=== PATIENT | female | born 1940 | race Caucasian/White ===

== ENCOUNTER → 2016-08-05 | Outpatient (CLI) | payer OTHER ==
[~2016-08-05] MED LIST: CALC1TAB9 PO; MISCCAP80 PO
== END | disposition home or self-care (01) ==
LOC: C.PAPS 11:50
PROVIDERS: ATTEND Obstetrics & Gynecology
DX: Z12.4 Encounter for screening for malignant neoplasm of cervix (principal)

== ENCOUNTER → 2016-08-27 | Outpatient (CLI) | payer OTHER ==
--- NOTE | 2016-08-27 16:04 | MAMMOGRAPHY REPORT ---
BILATERAL DIGITAL SCREENING MAMMOGRAM WITH CAD: 08/27/2016 CLINICAL HISTORY: Routine screening. Patient has no complaints. TECHNIQUE: Bilateral CC and MLO views were obtained. Current study was also evaluated with a Comput er Aided Detection (CAD) system. COMPARISON: Comparison is made to exams dated: 08/24/2015 mammogram, 08/23/2014 mammogram, 08/19/2013 ma mmogram, 08/18/2012 mammogram, 08/16/2011 mammogram, and 08/15/2010 mammogram - [facility] enter. BREAST COMPOSITION: There are scattered areas of fibroglandular density in both breasts. FINDINGS: There is a circumscribed 12 mm mass in the upper outer middle one third of the left breas t, that is stable in size dating back to at least 08/10/2007, therefore likely benign. There are be nign calcifications scattered bilaterally. A stable focal asymmetry in the lower inner quadrant of the left breast is also unchanged dating back to 2007. No new suspicious mass, architectural distor tion or cluster of microcalcifications is seen. IMPRESSION: ACR BI-RADS CATEGORY 1: NEGATIVE There is no mammographic evidence of malignancy. A 1 year screening mammogram is recommended. The p atient will receive written notification of the results. Approximately 10% of breast cancers are not detected with mammography. A negative mammographic repor t should not delay biopsy if a clinically suggestive mass is present. Lurdes Mitchell M.D. ay/:08/27/2016 15:22:52 Cable Repairer: Marylu GUZMAN)(Do), [facility] letter sent: Normal 1/2 BI-RADS Code: ACR BI-RADS Category 1: Negative
== END | disposition home or self-care (01) ==
LOC: C.MAMM 08:51
PROVIDERS: ATTEND Family Medicine
DX: Z12.31 Encounter for screening mammogram for malignant neoplasm of breast (principal)

== ENCOUNTER → 2017-09-24 | Outpatient (CLI) | payer OTHER ==
--- NOTE | 2017-09-25 08:03 | MAMMOGRAPHY REPORT ---
BILATERAL DIGITAL SCREENING MAMMOGRAM TOMOSYNTHESIS WITH CAD: 09/24/2017 CLINICAL HISTORY: Routine screening. Patient has no complaints. TECHNIQUE: Breast tomosynthesis in addition to standard 2D mammography was performed. Current study was also evaluated with a Computer Aided Detection (CAD) system. COMPARISON: Comparison is made to exams dated: 08/27/2016 mammogram, 08/24/2015 mammogram, 08/23/2014 mamm ogram, 08/18/2012 mammogram, 08/19/2013 mammogram, and 08/16/2011 mammogram - [facility] er. BREAST COMPOSITION: There are scattered areas of fibroglandular density in both breasts. FINDINGS: No suspicious masses, calcifications, or areas of architectural distortion are noted in ei ther breast. There has been no significant interval change compared to prior exams. Scattered bilater al benign-appearing calcifications are not significantly changed. Left breast asymmetries are stable . Circumscribed benign-appearing 8 mm mass within the left upper outer quadrant is stable compared t o multiple prior exams. IMPRESSION: ACR BI-RADS CATEGORY 2: BENIGN There is no mammographic evidence of malignancy. A 1 year screening mammogram is recommended. The pa tient will receive written notification of the results. Approximately 10% of breast cancers are not detected with mammography. A negative mammographic report should not delay biopsy if a clinically suggestive mass is present. Magi Orlando M.D. /:09/24/2017 15:48:58 Architecture Manager: Ronit Araya [facility] letter sent: Normal 1/2 BI-RADS Code: ACR BI-RADS Category 2: Benign
== END | disposition home or self-care (01) ==
LOC: C.MAMM 13:14
PROVIDERS: ATTEND Family Medicine
DX: Z12.31 Encounter for screening mammogram for malignant neoplasm of breast (principal)

== ENCOUNTER 2022-06-02 09:50 | Inpatient (IN) ==
[2022-06-02] MEDS ORDERED: ONDANSETRON INJ 2 MG/ML 2 ML VIAL IV STA (10:34)
[2022-06-02] MEDS ORDERED: FAMOTIDINE 20MG IV PUSH 20 MG/5 ML SYR IV STA (10:34)
[2022-06-02] MEDS ORDERED: SODIUM CHLORIDE 0.9% 1000ML 1,000 ML IV ONE (10:35)
[2022-06-02 10:59] LABS: Basophils # (auto) 0.02 K/uL (0-0.2); Basophils % (auto) 0.4 %; Eosinophils # (auto) 0.04 K/uL (0-0.50); Eosinophils % (auto) 0.8 %; Hematocrit (blood only) 41.6 % (34.1-44.9); Hemoglobin 13.9 g/dl (12.0-16.0); Immature Granulocytes # (auto) 0.02 K/uL (0.00-0.02); Immature Granulocytes % (auto) 0.4 %; Lymphocytes # (auto) 1.59 K/uL (1.2-3.4); Lymphocytes % (auto) 33.8 %; Mean Corpuscular Hemoglobin 30.2 pg (25.0-34.0); Mean Corpuscular Hgb Conc 33.4 g/dL (32.0-36.0); Mean Corpuscular Volume 90.4 fL (80.0-100.0); Mean Platelet Volume 10.2 fL (9.4-12.3); Monocytes % (auto) 8.5 %; Neutrophils # (auto) 2.64 K/uL (1.4-6.5); Neutrophils % (auto) 56.1 %; Platelet Count 208 K/uL (130-400); RDW Coefficient of Variation 13.2 % (11.5-14.5); RDW Standard Deviation 43.8 fL (36.4-46.3); White Blood Count 4.71 K/ul (4.8-10.8)
--- NOTE | 2022-06-02 11:07 | XRay Report ---
XR chest 1V portable CLINICAL HISTORY: weakness TECHNIQUE: Single frontal radiograph of the chest was obtained. Comparison: Comparison is made to chest radiograph 05/17/2015 FINDINGS: No lines and tubes are seen. The cardiomediastinal silhouette is normal. The lungs are clear. No evid ence of pleural effusion or pneumothorax. IMPRESSION: No acute chest disease. ACT 112: Negative or not required by law. Electronically signed by: David Hassan M.D. 06/02/2022 11:06 AM
[2022-06-02 11:08] LABS: Albumin Globulin Ratio 1.5 (0.9-2); Albumin Level 4.1 gm/dl (3.4-5.0); BUN Creatinine Ratio 14.3 (10-20); Bilirubin,Total 0.7 mg/dl (0.2-1.0); Calcium 8.4 mg/dl (8.5-10.1); Creatinine Clr Calc Pharmacy 42.6 ml/min; Est GFR (African American) 69.1 ml/min; Est GFR (Non-African American) 59.6 ml/min; Globulin 2.7 gm/dl (2.5-4.0); Magnesium 1.4 mg/dl (1.7-2.4); Phosphorus 2.6 mg/dl (2.5-4.9); Total Protein 6.8 gm/dl (6.0-8.3)
[2022-06-02 11:27] LABS: Troponin I High Sensitivity 12.6 pg/ml (0-14)
--- NOTE | 2022-06-02 12:10 | Electrocardiogram Report ---
Test Reason : Blood Pressure : / mmHG Vent. Rate : 049 BPM Atrial Rate : 049 BPM P-R Int : 154 ms QRS Dur : 078 ms QT Int : 504 ms P-R-T Axes : 012 -09 004 degrees QTc Int : 455 ms Sinus bradycardia Minimal voltage criteria for LVH, may be normal variant Borderline ECG When compared with ECG of 17-MAY-2015 10:35, No significant change Confirmed by Kris Hill ([id number]) on 06/02/2022 12:10:23 PM Referred By: REFERRED SELF Confirmed By:Kris Hill
--- NOTE | 2022-06-02 13:14 | History & Physical Report ---
Date of Service June 02, 2022 Assessment & Plan (1) COVID-19: (2) HTN (hypertension): (3) Depression: (4) Weakness: Plan 82-year-old COVID-positive presented with weakness and hypokalemia/hypomagnesemia. Replace electrolytes and likely discharge home as fatigue likely related to COVID-19. IV replacement of electrolytes. COVID-19: Weakness: Home test positive for COVID; PCR + in ED Paxil bid started as outpatient per PCP; currently on day 4 of treatment Patient reluctant to continue course of treatment at this time No hypoxia, fevers, or cough CXR negative; no expectorant to check sputum culture Electrolyte disturbances: K+ 3.0; likely related to vomiting,COVID, dehydration Received K riders x2; will order 1 more K rider for a total of 3 IVF 0.9% NS with 20 KCl at 100 mL/h x 2 bags; reevaluate in a.m. 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 Collins in [place] neurology No weakness or numbness/tingling noted Depression: Takes sertraline; continue Alzheimer's disease: Takes Aricept; continue Contribute aphasia to memory changes; see speech therapy weekly since September; no dysphagia will order speech therapy while here Disposition: PCP: Dr. Gutierrez VTE prophylaxis: Teds and SCDs patient denies wanting Lovenox at this time CODE STATUS: Full code length of stay: Anticipate admission 1 to 2 days I personally was able to review all current laboratory work and diagnostic images obtained in the ED. Additionally, I was able to review the patients past medication reconciliation and history with direct visualization in the patients chart. This patient was discussed with Dr. Lyle. History of Present Illness Chief Complaint: Weakness Primary Care Provider: Kris Gutierrez MD Ms. Bhatia is an 82-year-old female that presented to the [facility] with increased weakness and possible confusion. The patient tested positive for COVID with a home test kit and per PCP rec ommendations and prescription is on Paxlovid day #4 of treatment; last dose this AM. Patient is unvaccinated for flu and COVID due to history of Guillain-Ricks in 2010 which resulted in her being intubated at that time for 10 days. Patient reports having nausea and fatigue over the past few days. She reports having 1 episode of emesis this morning with mucus; no blood. No leukocytosis on labs however hypokalemic and hypomagnesemia was noted. Patient denies headache, dizziness, vomiting vision changes, urinary changes, recent trauma or falls. Since September 2021 the patient has had difficulty with retrieving memory and aphasia and has been seeing speech therapy weekly on . She denies any dysphagia. Patient is sitting upright in her hospital bed in no apparent distress she is able to answer all questions appropriately and no overt difficulty with word finding during our conversation. Her Santos is at the bedside and assisted with the conversation and review of history. 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 Patient will be admitted under the hospitalist service for further evaluation and management along with some physical therapy and Occupational Therapy. Please see A/P for further details. Allergies Allergy/AdvReac Type Severity Reaction Status Date / Time amoxicillin Allergy Unknown HIVES, RASH Unverified 06/02/22 13:35 Influenza Virus Vaccines Allergy Unknown cannot Verified 06/02/22 13:35 have d/t hx of guillian barre Home Medications Medication Instructions Recorded Confirmed Type loratadine 10 mg tablet 10 mg PO HS 10/13/19 06/02/22 History ascorbic acid (vitamin C) 500 mg 500 mg PO QAM 02/22/22 06/02/22 History capsule cholecalciferol (vitamin D3) 25 25 mcg PO DAILY 02/22/22 06/02/22 History mcg (1,000 unit) capsule donepezil 5 mg tablet 5 mg PO QAM 02/22/22 06/02/22 History melatonin 5 mg capsule 5 mg PO HS PRN Sleep 02/22/22 06/02/22 History omeprazole 20 mg capsule,delayed 20 mg PO QAM 02/22/22 06/02/22 History release gabapentin 100 mg capsule 100 mg PO TID 06/02/22 06/02/22 History losartan 25 mg tablet 12.5 mg PO DAILY 06/02/22 06/02/22 History metoprolol succinate 25 mg PO BID 06/02/22 06/02/22 History sertraline 25 mg tablet 25 mg PO QAM 06/02/22 06/02/22 History Past Med/Surg History Medical History COVID-19 Depression Guillain-[place] syndrome following vaccination HTN (hypertension) Incisional hernia Weakness Surgical History H/O hernia repair laparoscopic, 10cm surgimesh, 05/2015, Ramondioana H/O tubal ligation S/P cholecystectomy laparoscopic with cholangiogram, 2014, Ramondelli S/P hemorrhoidectomy Family History Mother Colorectal cancer Grandmother Diabetes Denies family history of Ovarian cancer Breast cancer Social History Smoking Status: Former smoker Hx Alcohol Use: No Hx Substance Use: No Preferred Language: Senegalese marital status: Feels Safe at Home: Yes Dental Care, Regularly: Yes Seatbelt Use: always Sunscreen Use: Yes Review of Systems Review of Systems: Neuro: (-) Falls, trauma, slurred speech (+) expressive aphagia HEENT: (-) VERGARA, dizziness, dysphagia, visual or auditory changes CV: (-) CP, palpitations, swelling Resp: (-) SOB GI: (-) appetite changes, N/V/D, bowel changes : (-) urinary changes Skin: (-) rashes Psych: (-) anxiety, depression Physical Exam Physical Exam: Neuro: AAOx4, PERRLA, + expressive aphagia, + memory changes, CNII-XII grossly intact HEENT: head normocephalic, moist mucus membranes CV: S1/S2, (-) M/G/R, (-) edema, cap refill < 3 seconds Resp: Lungs CTA in all cruz. On RA GI: Abdomen S/NT/ND, Ax4 bowel sounds, (-) CVA tenderness Musculoskeletal: 5/5 B/L UE strength, 5/5 B/L LE strength. No gait disturbance noted Skin: (-) rashes , (-) erythema. Psych: euthymic mood Results & Data Results & Data ([facility]) Vital Signs (Past 12 Hours) Vital Signs Temp Pulse Pulse Resp BP BP Pulse Ox 06/02/22 11:58 50 L 20 128/60 99 06/02/22 11:08 100 06/02/22 09:58 36.7 C 60 18 129/91 95 O2 Del Method O2 Flow Rate 06/02/22 11:58 Nasal Cannula 1 06/02/22 11:08 Nasal Cannula 1 06/02/22 09:58 Room Air Laboratory Results Short CBC 06/02/22 Range/Units 10:40 WBC 4.71 L (4.8-10.8) K/ul Hgb 13.9 (12.0-16.0) g/dl Hct 41.6 (34.1-44.9) % Plt Count 208 (130-400) K/uL BMP 06/02/22 10:40 Sodium 141 Potassium 3.0 L Chloride 104 Carbon Dioxide 24 BUN 13 Creatinine 0.91 Glucose 110 H Calcium 8.4 L Liver Function 06/02/22 Range/Units 10:40 Total Bilirubin 0.7 (0.2-1.0) mg/dl AST 26 (13-39) U/L ALT 22 (7-52) U/L Alkaline Phosphatase 69 (34-104) U/L Albumin 4.1 (3.4-5.0) gm/dl Diagnostic Findings Chest X-Ray 06/02/22 10:33 XR chest 1V portable CLINICAL HISTORY: weakness TECHNIQUE: Single frontal radiograph of the chest was obtained. Comparison: Comparison is made to chest radiograph 05/17/2015 FINDINGS: No lines and tubes are seen. The cardiomediastinal silhouette is normal. The lungs are clear. No evidence of pleural effusion or pneumothorax. IMPRESSION: No acute chest disease. ACT 112: Negative or not required by law. Electronically signed by: David Hassan M.D. 06/02/2022 11:06 AM ECG Additional Comments: Vent. Rate : 049 BPM Atrial Rate : 049 BPM P-R Int : 154 ms QRS Dur : 078 ms QT Int : 504 ms P-R-T Axes : 012 -09 004 degrees QTc Int : 455 ms Code Status & VTE Plan Code Status Full code in the event of cardiac or respiratory arrest VTE Prophylaxis Plan VTE Prophylaxis will be ordered: Yes Supervising Physician Co-Signing Physician Notes Patient seen and examined at bedside. Patient with pmh HTN who presented with 4 days of nausea and vomiting, likely secondary to Paxlovid. Patient positive COVID19 with at home test about 5 days prior to admission. Decided to get prescription for Paxlovid. Had diarrhea and fatigue related to COVID19, which mostly resolved, but had n/v, PO intolerance with Paxlovid, prompting her to present to ED. Patient was not hypoxic in ED, found to have hypokalemia and hypomagnesemia on labs. IVF and repletion started in ED. Physical exam unremarkable, in NAD, HR RRR, lungs CTAB and no wheezing or rhonchi, abdomen soft and nontender, no LE edema. Vital stable. Continue IVF and electrolyte repletion. Follow up on morning labs. Discussed with YONIS Rosales and agree with rest of assessment and plan as outlined above.
[2022-06-02] MEDS: POTASSIUM CHLORIDE / WTR 10 MEQ/100 ML PLCT IV SCH ×2 (13:48→14:58)
[2022-06-02] MEDS: MAGNESIUM SULFATE / D5W 1 GM/100 ML BAG IV SCH ×4 (13:50→22:27)
--- NOTE | 2022-06-02 15:31 | Emergency Department Note ---
Impression & Plan COVID-19, Gastroenteritis due to COVID-19 virus, Hypomagnesemia, Hypokalemia ED Provider Note NAME: LANDON FUCHS AGE: 82 SEX: F ARRIVES VIA: Ambulance INFORMANT: Patient, ED PROVIDER(S): Hernandez Hallman MD CHIEF COMPLAINT: PLAN: Disposition: Admit MEDICAL DECISION MAKING: The patient is a pleasant 82-year-old woman with a past medical history of hypertension, GERD, memory loss who presents to the emergency department via EMS accompanied by her for evaluation of increasing generalized weakness in the setting of being diagnosed with COVID-19 approximately a week ago where she tested positive on a home test and subsequently was started on Paxlovid. However she is on day 4 of her course and reports that her nausea and diarrhea that has been present from her illness has continued to worsen and she has not been able to tolerate much oral intake over the past 24 hours. Her grew concerned that she was getting weaker to the point where she could not walk independently today and even had a period of mild confusion. He reports feeling short of breath but denies any chest pain. 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 On arrival the patient is fatigued appearing but no acute distress, afebrile with stable vital signs. O2 saturation was in the mid 90s on room air and so nasal cannula was discontinued. She appears clinically dry. Her abdomen is benign. EKG without overt acute ischemia. Chest x-ray negative for acute cardiopulmonary process. WBC 4.7K consistent with patient's COVID-19 infection. H/H and platelets within normal limits. Chemistry without metabolic acidosis. Potassium 3.0 magnesium 1.4 with repletion initiated. LFTs unremarkable. High-sensitivity troponin 12.6, within normal limits. TSH was normal limits. COVID-19 PCR did confirm patient's infection. Given the patient's generalized weakness which has become significant today the patient and her agree with plan for admission. Case was discussed with Maricruz Rosales with [facility] hospitalist who will evaluate the patient for admission. Triage Nursing notes reviewed and agree them. Prior medical records reviewed Vital Signs: reviewed and remarkable for no significant abnormalities Differential diagnosis: Infection, dehydration, metabolic abnormality, hypo/hyperglycemia, electrolyte disturbance, anemia, hypoxia, cardiac sources, intracerebral event, toxicologic, neurologic, as well as other pathologies. ER treatment provided: See below. Diagnostics interpreted by me: ECG: Sinus bradycardia, 49 bpm, no ectopy, LVH, no overt ST elevation or depression, QTC 455, QRS 78. Cardiac Monitoring: An order for continuous cardiac monitoring was placed and demonstrated Sinus bradycardia, 49 bpm, no ectopy. Laboratory studies: See below Imaging studies: See below Consultation(s): Maricruz Rosales with Dr. Lyle, [facility] hospitalist HPI: The patient is a pleasant 82-year-old woman with a past medical history of hypertension, GERD, memory loss who presents to the emergency department via EMS accompanied by her for evaluation of increasing generalized weakness in the setting of being diagnosed with COVID-19 approximately a week ago where she tested positive on a home test and subsequently was started on Paxlovid. However she is on day 4 of her course and reports that her nausea and diarrhea that has been present from her illness has continued to worsen and she has not been able to tolerate much oral intake over the past 24 hours. Her grew concerned that she was getting weaker to the point where she could not walk independently today and even had a period of mild confusion. He reports feeling short of breath but denies any chest pain. 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 ROS: See above HPI for pertinent positives & negatives. A total of 10 systems reviewed and were otherwise negative. VITALS:See Below PHYSICAL EXAMINATION: GENERAL: Awake, alert, fatiguedl-appearing, in no distress HENT: Normocephalic, atraumatic. Oropharynx with dry mucous membranes and otherwise unremarkable. EYES: Normal conjunctiva. Sclera non-icteric. NECK: Supple. No nuchal rigidity. FROM. No JVD. RESPIRATORY: Clear to auscultation. CARDIAC: Regular rate, normal rhythm. Extremities warm and well perfused. Pulses equal. ABDOMEN: Soft, non-distended. No tenderness to palpation. No rebound or guarding. No masses. RECTAL: Deferred. MUSCULOSKELETAL: Chest examination reveals no tenderness. The back is symmetrical on inspection without obvious abnormality. There is no CVA tenderness to palpation. No joint edema. LOWER EXTREMITIES: Calves are equal size bilaterally and non-tender. No edema. No discoloration. NEURO: Normal sensorium. No sensory or motor deficits noted. SKIN: No rash or jaundice noted. 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 HTN (hypertension) Incisional hernia Weakness Surgical History H/O hernia repair laparoscopic, 10cm surgimesh, 05/2015, Jenny H/O tubal ligation S/P cholecystectomy laparoscopic with cholangiogram, 2014, Jenny S/P hemorrhoidectomy Family History Mother Colorectal cancer Grandmother Diabetes Denies family history of Ovarian cancer Breast cancer Social History Smoking Status: Former smoker Hx Alcohol Use: No Hx Substance Use: No Preferred Language: Yi marital status: Feels Safe at Home: Yes Dental Care, Regularly: Yes Seatbelt Use: always Sunscreen Use: Yes Allergies Allergies Allergy/AdvReac Type Severity Reaction Status Date / Time amoxicillin Allergy Unknown HIVES, RASH Unverified 06/02/22 13:35 Influenza Virus Vaccines Allergy Unknown cannot Verified 06/02/22 13:35 have d/t hx of guillian barre Home Meds Home Medications Medication Instructions Recorded Confirmed loratadine 10 mg tablet 10 mg PO HS 10/13/19 06/02/22 ascorbic acid (vitamin C) 500 mg 500 mg PO QAM 02/22/22 06/02/22 capsule cholecalciferol (vitamin D3) 25 25 mcg PO DAILY 02/22/22 06/02/22 mcg (1,000 unit) capsule donepezil 5 mg tablet 5 mg PO QAM 02/22/22 06/02/22 melatonin 5 mg capsule 5 mg PO HS PRN Sleep 02/22/22 06/02/22 omeprazole 20 mg capsule,delayed 20 mg PO QAM 02/22/22 06/02/22 release gabapentin 100 mg capsule 100 mg PO TID 06/02/22 06/02/22 losartan 25 mg tablet 12.5 mg PO DAILY 06/02/22 06/02/22 metoprolol succinate 25 mg PO BID 06/02/22 06/02/22 sertraline 25 mg tablet 25 mg PO QAM 06/02/22 06/02/22 Results & Data (ED) Vital Signs Vital Signs - 24 hr 06/02/22 09:58 06/02/22 11:08 06/02/22 11:58 Temperature 36.7 C Temperature Source Oral Pulse Rate 60 Pulse Rate [Apical] 50 L Respiratory Rate 18 20 Respiratory Depth Normal Blood Pressure 129/91 Blood Pressure [Left Arm] 128/60 Blood Pressure Mean 103 Blood Pressure Mean [Left Arm] 82 Blood Pressure Position Sitting Pulse Oximetry 95 100 99 Oxygen Delivery Method Room Air Nasal Cannula Nasal Cannula Oxygen Flow Rate 1 1 Sepsis Recent Fever Within 48 Hours No Sepsis New/Unexplained Change in Mental Status No Sepsis Action Taken by Nursing No Action Required 06/02/22 13:00 Temperature Temperature Source Pulse Rate Pulse Rate [Apical] 65 Respiratory Rate 18 Respiratory Depth Blood Pressure Blood Pressure [Left Arm] 143/90 H Blood Pressure Mean Blood Pressure Mean [Left Arm] 107 Blood Pressure Position Pulse Oximetry 97 Oxygen Delivery Method Nasal Cannula Oxygen Flow Rate 1 Sepsis Recent Fever Within 48 Hours Sepsis New/Unexplained Change in Mental Status Sepsis Action Taken by Nursing Laboratory Data Attestation: I reviewed the patient's lab results. Result diagrams: 06/02/22 10:40 06/02/22 10:40 Lab Results 06/02/22 06/02/22 06/02/22 Range/Units 10:40 10:40 10:40 WBC 4.71 L (4.8-10.8) K/ul RBC 4.60 (3.93-5.22) M/uL Hgb 13.9 (12.0-16.0) g/dl Hct 41.6 (34.1-44.9) % MCV 90.4 (80.0-100.0) fL MCH 30.2 (25.0-34.0) pg MCHC 33.4 (32.0-36.0) g/dL RDW Std Deviation 43.8 (36.4-46.3) fL RDW Coeff of Martin 13.2 (11.5-14.5) % Plt Count 208 (130-400) K/uL MPV 10.2 (9.4-12.3) fL Immature Gran % (Auto) 0.4 % Neut % (Auto) 56.1 % Lymph % (Auto) 33.8 % [place] % (Auto) 8.5 % Eos % (Auto) 0.8 % Baso % (Auto) 0.4 % Neut # (Auto) 2.64 (1.4-6.5) K/uL Lymph # (Auto) 1.59 (1.2-3.4) K/uL [place] # (Auto) 0.40 (0.24-0.82) K/uL Eos # (Auto) 0.04 (0-0.50) K/uL Baso # (Auto) 0.02 (0-0.2) K/uL Immature Gran # (Auto) 0.02 (0.00-0.02) K/uL Sodium 141 (136-145) mmol/L Potassium 3.0 L (3.5-5.1) mmol/L Chloride 104 (98-107) mmol/L Carbon Dioxide 24 (21-32) mmol/L Anion Gap 13 H (3-11) BUN 13 (6-23) mg/dl Creatinine 0.91 (0.6-1.2) mg/dl Est Cr Clr Drug Dosing 42.6 ml/min Est GFR ( Amer) 69.1 ml/min Est GFR (Non-Af Amer) 59.6 ml/min BUN/Creatinine Ratio 14.3 (10-20) Glucose 110 H (70-99(Fasting)) mg/dl Calcium 8.4 L (8.5-10.1) mg/dl Phosphorus 2.6 (2.5-4.9) mg/dl Magnesium 1.4 L (1.7-2.4) mg/dl Total Bilirubin 0.7 (0.2-1.0) mg/dl AST 26 (13-39) U/L ALT 22 (7-52) U/L Alkaline Phosphatase 69 (34-104) U/L Troponin I High Sens 12.6 (0-14) pg/ml Total Protein 6.8 (6.0-8.3) gm/dl Albumin 4.1 (3.4-5.0) gm/dl Globulin 2.7 (2.5-4.0) gm/dl Albumin/Globulin Ratio 1.5 (0.9-2) TSH 0.939 (0.300-4.500) uIu/ml SARS-CoV-2 (PCR) (Negative) 06/02/22 Range/Units 11:00 WBC (4.8-10.8) K/ul RBC (3.93-5.22) M/uL Hgb (12.0-16.0) g/dl Hct (34.1-44.9) % MCV (80.0-100.0) fL MCH (25.0-34.0) pg MCHC (32.0-36.0) g/dL RDW Std Deviation (36.4-46.3) fL RDW Coeff of Martin (11.5-14.5) % Plt Count (130-400) K/uL MPV (9.4-12.3) fL Immature Gran % (Auto) % Neut % (Auto) % Lymph % (Auto) % [place] % (Auto) % Eos % (Auto) % Baso % (Auto) % Neut # (Auto) (1.4-6.5) K/uL Lymph # (Auto) (1.2-3.4) K/uL [place] # (Auto) (0.24-0.82) K/uL Eos # (Auto) (0-0.50) K/uL Baso # (Auto) (0-0.2) K/uL Immature Gran # (Auto) (0.00-0.02) K/uL Sodium (136-145) mmol/L Potassium (3.5-5.1) mmol/L Chloride (98-107) mmol/L Carbon Dioxide (21-32) mmol/L Anion Gap (3-11) BUN (6-23) mg/dl Creatinine (0.6-1.2) mg/dl Est Cr Clr Drug Dosing ml/min Est GFR ( Amer) ml/min Est GFR (Non-Af Amer) ml/min BUN/Creatinine Ratio (10-20) Glucose (70-99(Fasting)) mg/dl Calcium (8.5-10.1) mg/dl Phosphorus (2.5-4.9) mg/dl Magnesium (1.7-2.4) mg/dl Total Bilirubin (0.2-1.0) mg/dl AST (13-39) U/L ALT (7-52) U/L Alkaline Phosphatase (34-104) U/L Troponin I High Sens (0-14) pg/ml Total Protein (6.0-8.3) gm/dl Albumin (3.4-5.0) gm/dl Globulin (2.5-4.0) gm/dl Albumin/Globulin Ratio (0.9-2) TSH (0.300-4.500) uIu/ml SARS-CoV-2 (PCR) POSITIVE A* (Negative) Administered Medications Gabapentin (Gabapentin 100 Mg Cap) 100 mg PO TID DOUGLAS Stop: 07/02/22 20:59 Last Admin: 06/02/22 20:49 Dose: 100 mg Documented By: TNK Potassium Chloride/Sodium Chloride (Normal Saline W/20 Meq Kcl) 20 meq in 1,000 mls @ 100 mls/hr IV .Q10H DOUGLAS; Protocol Stop: 06/03/22 12:44 Last Admin: 06/02/22 17:10 Dose: 100 mls/hr Documented By: PARISH Loratadine (Loratadine 10 Mg Tab) 10 mg PO HS DOUGLAS Stop: 07/02/22 20:59 Last Admin: 06/02/22 20:49 Dose: 10 mg Documented By: TNK Discontinued Medications Famotidine (Pepcid 20mg Iv Push) 20 mg in 5 mls @ 2.5 mls/min IV NOW STA Stop: 06/02/22 10:35 Last Admin: 06/02/22 10:58 Dose: 2.5 mls/min Documented By: JUAN A Sodium Chloride (Nss 1000ml) 1,000 mls @ 999 mls/hr IV .Q1H1M ONE Stop: 06/02/22 11:35 Last Infusion: 06/02/22 11:59 Dose: 0 mls/hr Documented By: Admin: 06/02/22 10:58 Dose: 999 mls/hr Documented By: OL Magnesium Sulfate/Dextrose (Magnesium Sulfate / D5w) 1 gm in 100 mls @ 100 mls/hr IV Q1H DOUGLAS Stop: 06/02/22 14:57 Last Infusion: 06/02/22 16:05 Dose: 0 mls/hr Documented By: Admin: 06/02/22 14:57 Dose: 100 mls/hr Documented By: Infusion: 06/02/22 14:50 Dose: 0 mls/hr Documented By: Admin: 06/02/22 13:50 Dose: 100 mls/hr Documented By: MARK Potassium Chloride (K Mihir / Wtr) 10 meq in 100 mls @ 100 mls/hr IV Q1H DOUGLAS; Protocol Stop: 06/02/22 14:59 Last Infusion: 06/02/22 16:05 Dose: 0 mls/hr Documented By: Admin: 06/02/22 14:58 Dose: 100 mls/hr Documented By: JUAN A Infusion: 06/02/22 14:48 Dose: 0 mls/hr Documented By: Admin: 06/02/22 13:48 Dose: 100 mls/hr Documented By: MARK Magnesium Sulfate/Dextrose (Magnesium Sulfate / D5w) 1 gm in 100 mls @ 50 mls/hr IV Q2H DOUGLAS Stop: 06/02/22 20:59 Last Infusion: 06/02/22 20:48 Dose: 0 mls/hr Documented By: Admin: 06/02/22 17:09 Dose: 50 mls/hr Documented By: PARISH Ondansetron HCl (Ondansetron Inj 2 Mg/Ml 2 Ml Vial) 4 mg IV NOW STA Stop: 06/02/22 10:35 Last Admin: 06/02/22 10:58 Dose: 4 mg Documented By: JUAN A Potassium Chloride (Potassium Chloride Crtab 20 Meq Tabcr) 40 meq PO NOW STA Stop: 06/02/22 16:47 Last Admin: 06/02/22 17:09 Dose: 40 meq Documented By: PARISH Imaging Data Radiologist's Impression: Chest X-Ray 06/02/22 10:33 XR chest 1V portable CLINICAL HISTORY: weakness TECHNIQUE: Single frontal radiograph of the chest was obtained. Comparison: Comparison is made to chest radiograph 05/17/2015 FINDINGS: No lines and tubes are seen. The cardiomediastinal silhouette is normal. The lungs are clear. No evidence of pleural effusion or pneumothorax. IMPRESSION: No acute chest disease. ACT 112: Negative or not required by law. Electronically signed by: David Hassan M.D. 06/02/2022 11:06 AM Discharge Plan Visit Data Chief Complaint: Dehydration Stated Complaint: DIARRHEA, DEHYDRATION, COVID ED Provider: Hernandez Hallman Discharge Problem: COVID-19, Gastroenteritis due to COVID-19 virus, Hypomagnesemia, Hypokalemia Patient Disposition: Admitted As Inpatient Discharge Instructions Interventions: ED Discharge Assessment Last Done: 06/02/22 20:02
[2022-06-02] MEDS ORDERED: ACETAMINOPHEN 325 MG TAB PO PRN (15:55)
[2022-06-02] MEDS ORDERED: ONDANSETRON INJ 2 MG/ML 2 ML VIAL IV PRN (15:55)
[2022-06-02] MEDS ORDERED: POLYETHYLENE (MIRALAX) 17 GM PACK PO PRN (15:55)
[2022-06-02] MEDS ORDERED: ALUMINUM/MAGNESIUM SUSP 30 ML UDC PO PRN (15:55)
[2022-06-02] MEDS ORDERED: MAGNESIUM HYDROXIDE SUSP 30 ML UDC PO PRN (15:55)
[2022-06-02] MEDS ORDERED: POTASSIUM CHLORIDE CRTAB 20 MEQ TABCR PO STA (16:46)
[2022-06-02] MEDS ORDERED: MELATONIN 3 MG TAB PO PRN (16:47)
[2022-06-02] MEDS: NSS + 20MEQ KCL 20 MEQ/1,000 ML BAG IV SCH (17:10)
[2022-06-02] MEDS ORDERED: LACTATED RINGER'S 1,000 ML IV SCH (17:45)
[2022-06-02] MEDS: GABAPENTIN 100 MG CAP PO SCH (20:49)
[2022-06-02] MEDS ORDERED: LORATADINE 10 MG TAB PO SCH (21:00)
[2022-06-02 23:28] LABS: Appearance Urine Cloudy (Clear); Bacteria Urine Automated 2+ (Negative); Bilirubin Urine Negative (Negative); Blood Urine Negative (Negative); Cast Urine Automated 0 /lpf (0-5); Color Urine Yellow; Glucose Urine UA Negative (Negative); Ketones Urine Negative (Negative); Leukocyte Esterase Urine 1+ (Negative); Nitrite Urine Positive (Negative); Protein Urine Negative (Negative); RBC Urine Automated 0-4 /hpf (0-4); Specific Gravity Urine 1.008 (1.000-1.030); Urobilinogen Urine Negative (Negative); pH Urine 5.5 (4.5-7.5)
[2022-06-03] MEDS: NSS + 20MEQ KCL 20 MEQ/1,000 ML BAG IV SCH (05:51)
[2022-06-03] MEDS: GABAPENTIN 100 MG CAP PO SCH ×2 (08:11→13:10)
[2022-06-03 08:45] LABS: Hematocrit (blood only) 39.4 % (34.1-44.9); Hemoglobin 12.8 g/dl (12.0-16.0); Mean Corpuscular Hgb Conc 32.5 g/dL (32.0-36.0); Mean Corpuscular Volume 92.5 fL (80.0-100.0); Mean Platelet Volume 10.3 fL (9.4-12.3); Platelet Count 224 K/uL (130-400); RDW Coefficient of Variation 13.3 % (11.5-14.5); RDW Standard Deviation 45.6 fL (36.4-46.3); Red Blood Count 4.26 M/uL (3.93-5.22); White Blood Count 4.85 K/ul (4.8-10.8)
[2022-06-03] MEDS ORDERED: DONEPEZIL HCL 5 MG TAB PO SCH (09:00)
[2022-06-03] MEDS ORDERED: SERTRALINE HCL 50 MG TABLET PO SCH (09:00)
[2022-06-03] MEDS ORDERED: LOSARTAN POTASSIUM 25 MG TAB PO SCH (09:00)
[2022-06-03] MEDS ORDERED: CHOLECALCIFEROL 400 UNITS 10 MCG TAB PO SCH (09:00)
[2022-06-03 09:16] LABS: BUN Creatinine Ratio 9.3 (10-20); Calcium 7.8 mg/dl (8.5-10.1); Creatinine Clr Calc Pharmacy 50.7 ml/min; Est GFR (African American) 87.3 ml/min; Est GFR (Non-African American) 75.3 ml/min; Magnesium 2.3 mg/dl (1.7-2.4); Phosphorus 1.4 mg/dl (2.5-4.9); Potassium 3.7 mmol/L (3.5-5.1)
[2022-06-03] MEDS ORDERED: SODIUM PHOSPHATE 3 MMOL/1 ML 5 ML VIAL IV STA (09:42)
[2022-06-03] MEDS ORDERED: SODIUM PHOSPHATE 30 MMOL in SODIUM CHLORIDE 0.9% 500 ML IV ONE (10:00)
[2022-06-03] MEDS ORDERED: LOPERAMIDE HCL 2 MG CAP PO PRN (14:31)
--- NOTE | 2022-06-03 15:39 | Discharge Summary ---
Date of Service June 03, 2022 Admission HPI Per Admitting Provider Ms. Bhatia is an 82-year-old female that presented to the [facility] with increased weakness and possible confusion. The patient tested positive for COVID with a home test kit and per PCP recommendations and prescription is on Paxlovid day #4 of treatment; last dose this AM. Patient is unvaccinated for flu and COVID due to history of Guillain- Ricks in 2010 which resulted in her being intubated at that time for 10 days. Patient reports having nausea and fatigue over the past few days. She reports having 1 episode of emesis this morning with mucus; no blood. No leukocytosis on labs however hypokalemic and hypomagnesemia was noted. Patient denies headache, dizziness, vomiting vision changes, urinary changes, recent trauma or falls. Since September 2021 the patient has had difficulty with retrieving memory and aphasia and has been seeing speech therapy weekly on . She denies any dysphagia. Patient is sitting upright in her hospital bed in no apparent distress she is able to answer all questions appropriately and no overt difficulty with word finding during our conversation. Her Santos is at the bedside and assisted with the conversation and review of history. 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 Patient will be admitted under the hospitalist service for further evaluation and management along with some physical therapy and Occupational Therapy. Please see A/P for further details. Admission Exam Per Admitting Provider Neuro: AAOx4, PERRLA, + expressive aphagia, + memory changes, CNII-XII grossly intact HEENT: head normocephalic, moist mucus membranes CV: S1/S2, (-) M/G/R, (-) edema, cap refill < 3 seconds Resp: Lungs CTA in all cruz. On RA GI: Abdomen S/NT/ND, Ax4 bowel sounds, (-) CVA tenderness Musculoskeletal: 5/5 B/L UE strength, 5/5 B/L LE strength. No gait disturbance noted Skin: (-) rashes , (-) erythema. Psych: euthymic mood Principal Diagnosis electrolyte abnormalities Discharge Exam Neuro: AAOx4, PERRLA, + expressive aphagia, + memory changes, CNII-XII grossly intact HEENT: head normocephalic, moist mucus membranes CV: S1/S2, (-) M/G/R, (-) edema, cap refill < 3 seconds Resp: Lungs CTA in all cruz. On RA GI: Abdomen S/NT/ND, Ax4 bowel sounds, (-) CVA tenderness Musculoskeletal: 5/5 B/L UE strength, 5/5 B/L LE strength. No gait disturbance noted Skin: (-) rashes , (-) erythema. Psych: euthymic mood Discharge Data Allergies Allergy/AdvReac Type Severity Reaction Status Date / Time amoxicillin Allergy Unknown HIVES, RASH Unverified 06/02/22 13:35 Influenza Virus Vaccines Allergy Unknown cannot Verified 06/02/22 13:35 have d/t hx of guillian barre Consultations 06/02/22 13:05 ED Decision to Admit Stat Hospital Course (1) COVID-19: (2) HTN (hypertension): (3) Depression: (4) Weakness: Plan 82-year-old COVID-positive presented with weakness and hypokalemia/hypomagn esemia. Replace electrolytes and likely discharge home as fatigue likely related to COVID-19. IV replacement of electrolytes. 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 Collins in [place] neurology No weakness or numbness/tingling noted Depression: Takes sertraline; continue Alzheimer's disease: Takes Aricept; continue Contribute aphasia to memory changes; see speech therapy weekly since September; no dysphagia will order speech therapy while here Disposition: PCP: Dr. Gutierrez VTE prophylaxis: Teds and SCDs patient denies wanting Lovenox at this time CODE STATUS: Full code discharge home now that tolerating PO and electrolyte abnormalities corrected Total Time Total Time Spent Total Time Spent (In Minutes): 25 Total Time Includes: Examination of the Patient, Discharge Planning and Medication Reconciliation Discharge Plan Discharge Items Patient Disposition: Home - Self-Care Reason For Visit: WEAKNESS Discharge Diagnosis: electrolyte abnormalities Activity: Resume your previous activity Non-emergency contact: Primary Care Provider Call non-emergency contact if: you have any medication questions and your symptoms worsen Follow-up/Referrals: Kris Gutierrez MD [Primary Care Provider] - (Date & Time 06/14/2022 11:00 AM Provider Kris Gutierrez MD Department Family [facility] ) Diet: Heart Healthy Addtl Attending Provider Instructions: You were admitted due to nausea and vomiting in the setting of COVID19 infection and Paxlovid use. You were found to have electrolyte abnormalities (potassium, magnesium, phosphorus) that required replacement. You received replacement through the IV and you were able to tolerate a regular diet. You felt better and were ok for discharge home and with follow up with your primary care doctor. Pending Studies at Discharge: No Stand-Alone Forms: My [facility], Smoking Cessation Medications and DC Order Prescriptions: New loperamide 2 mg Capsule 2 mg PO Q4 PRN (Reason: loose stool) Qty: 30 0RF Continued omeprazole 20 mg capsule,delayed release(DR/EC) 20 mg PO QAM donepezil 5 mg tablet 5 mg PO QAM cholecalciferol (vitamin D3) 25 mcg (1,000 unit) capsule 25 mcg PO DAILY ascorbic acid (vitamin C) 500 mg capsule 500 mg PO QAM melatonin 5 mg capsule 5 mg PO HS PRN (Reason: Sleep) loratadine 10 mg tablet 10 mg PO HS gabapentin 100 mg capsule 100 mg PO TID sertraline 25 mg tablet 25 mg PO QAM losartan 25 mg tablet 12.5 mg PO DAILY metoprolol succinate 25 mg PO BID Discharge Orders: Discharge Order (Routine); Ordered 06/03/22 Ordered By: Arsalan Horner Admission Data Admit Date/Time: 06/02/22 13:21 Attending Provider: Arsalan Horner Admit Provider: Arsalan Horner Primary Care Provider: Kris Gutierrez Other Providers: Arsalan Horner Other Interventions: Discharge Summary Assessment (RN) Last Done: 06/03/22 14:52
[2022-06-03] MEDS ORDERED: METOPROLOL SUCC 25MG EXT REL TAB PO SCH (21:00)
== END 2022-06-03 17:35 | disposition home or self-care (01) | DRG 178 ==
LOC: ED 09:50 → EDINP 13:21 → 2W 19:15

== ENCOUNTER 2025-01-11 09:44 | Inpatient (IN) ==
--- NOTE | 2025-01-11 10:02 | Emergency Department Note ---
Impression & Plan Infarction of kidney Admission ED Provider Note HPI: History obtained from patient and at bedside. The patient is a 84-year-old female with history of dementia, who presents the emergency department after a possible syncopal event. Patient states she was standing at the kitchen sink when she "felt something coming on". Patient's was there at the time. Patient apparently fell but she did not have any significant prolonged loss of consciousness. Patient states she feels like she may have lost consciousness for a brief moment. Patient denies any preceding chest pain or shortness of breath but states she did have some type of lightheaded sensation. Patient is a somewhat limited historian given her history of dementia. On arrival here to the ED the patient is hemodynamically stable, she appears to be in no acute distress on my initial assessment. ROS: - Per HPI Differential Diagnosis: Arrhythmia to include atrial fibrillation with RVR, SVT, ventricular tachycardia, heart block, vasovagal event, acute dehydration/acute kidney injury, ACS, amongst other potential pathologies. *Outpatient medications and allergy history reviewed. PE: General: Alert HEENT: Normocephalic, trachea midline Eyes: Extraocular eye movement is intact, no scleral erythema Pulmonary: Clear to auscultation bilaterally, no wheezing Cardio: Regular rate and rhythm GI: Abdomen is soft to palpation : No suprapubic tenderness MSK: No evidence of trauma or malformation of the extremities, no edema Skin: No evidence of rash Neuro: Alert, no focal deficits, equal bilateral engraver automatic strength, symmetrical facial movements are appreciated Psychiatric: Cooperative INDEPENDENT INTERPRETATIONS: hall monitor: (As interpreted by myself): - An order was placed for continuous cardiac monitoring - Patient was noted to be in sinus rhythm with a rate of 95 EKG: (As interpreted by myself): Rate: 80 Rhythm: Normal sinus rhythm Intervals: Within normal limits ST changes: No ST elevation Time: 0950 Interventions provided in ED: - IV fluid bolus Medical Decision Making: IV was established and lab work obtained, patient was placed on hall monitor. Lab work shows no leukocytosis, hemoglobin is normal, platelet count is normal, CMP does not show any evidence of any critical findings. Troponin is negative. Urinalysis does not show any evidence of any obvious infection. 1+ ketones are noted. Patient was given IV fluids here in the ED. CT imaging of the head was obtained and there is no evidence of any acute intracranial process or intracranial hemorrhage. CT imaging of the abdomen pelvis was obtained that is suggestive of an acute to subacute right renal infarct, no evidence of colitis or diverticulitis flare is noted. Patient was unable to provide a stool sample while here in the ED. On reassessment the patient is resting comfortably in bed, I discussed all of the above findings with the patient and with her at the bedside, request admission as she has been very weak recently and has continued to have diarrhea. Given this finding of renal infarct on CT imaging in addition to her weakness and diarrhea, I do feel that admission would be appropriate for further workup. I discussed the patient's presentation with the on-call midlevel provider for the [facility] service and the patient was placed for admission to the service of Dr. Dexter. Consultants/Discussions held with other healthcare providers: - Hospitalist, Dr. Dexter Disposition discussion held by myself with: - Patient and patient's at the bedside Diagnosis: 1. Renal infarct, acute, right-sided 2. Diarrhea, acute, nonspecific etiology 3. 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 Depression HTN (hypertension) Aphasia Stroke-like symptoms Memory loss Speech fluency problem Encounter for annual routine gynecological examination History of allergy (Chronic) Laryngopharyngeal reflux (Acute) Osteoporosis (Chronic) Vocal cord paralysis (Acute) Medical History Gastroenteritis due to COVID-19 virus COVID-19 Incisional hernia Surgical History S/P hemorrhoidectomy H/O tubal ligation S/P cholecystectomy H/O hernia repair Family History Mother Colorectal cancer Grandmother Diabetes Denies family history of Ovarian cancer Breast cancer Social History Smoking Status: Former smoker Second Hand Exposure: No; Do You Dip or Chew Tobacco: No; Hx Alcohol Use: Yes Hx Substance Use: No Preferred Language: Citizen Of [place] Communication Ability: Effective Library Circulation Clerk Required: No Beliefs That Will Affect Care: None marital status: Current Living Situation: Spouse Feels Safe at Home: Yes Dental Care, Regularly: Yes Seatbelt Use: always Sunscreen Use: Yes Assistive Devices: None Allergies Allergies Allergy/AdvReac Type Severity Reaction Status Date / Time amoxicillin Allergy Unknown HIVES, RASH Verified 12/07/24 13:39 Influenza Virus Vaccines Allergy Unknown cannot Verified 12/07/24 13:39 have d/t hx of guillian barre pollen Allergy Uncoded 12/07/24 13:39 Home Meds Home Medications Medication Instructions Recorded Confirmed ascorbic acid (vitamin C) 500 mg 500 mg PO QAM 02/22/22 01/11/25 capsule cholecalciferol (vitamin D3) 25 25 mcg PO DAILY 02/22/22 01/11/25 mcg (1,000 unit) capsule melatonin 5 mg capsule 5 mg PO HS PRN Sleep 02/22/22 01/11/25 omeprazole 20 mg capsule,delayed 20 mg PO QAM 02/22/22 01/11/25 release losartan 25 mg tablet 12.5 mg PO DAILY 06/02/22 01/11/25 metoprolol succinate 25 mg PO BID 06/02/22 01/11/25 celecoxib 100 mg capsule 100 mg PO DAILY 09/06/24 01/11/25 sertraline 25 mg tablet 25 mg PO DAILY 12/07/24 01/11/25 alendronate 70 mg tablet 70 mg PO QAM 01/11/25 01/11/25 colestipol 1 gram tablet 1 g PO BID 01/11/25 01/11/25 levetiracetam 250 mg tablet 250 mg PO BID 01/11/25 01/11/25 (Keppra) memantine 5 mg tablet 5 mg PO BID 01/11/25 01/11/25 Previous Rx's Medication Instructions Recorded donepezil 10 mg tablet 10 mg PO QAM 90 days #90 tabs 04/26/24 divalproex 500 mg tablet,extended 500 mg PO DAILY #90 tabs 11/08/24 release 24 hr Results & Data (ED) Vital Signs Vital Signs - 24 hr 01/11/25 09:48 01/11/25 09:48 01/11/25 09:48 Temperature 36.5 C Temperature Source Oral Pulse Rate 85 Respiratory Rate 20 Respiratory Effort / Characteristics Non-Labored Spontaneous Respiratory Depth Normal Respiratory Pattern Regular Blood Pressure 117/72 Blood Pressure Mean 87 Blood Pressure Position Lying Pulse Oximetry 95 95 95 Oxygen Delivery Method Room Air Room Air Room Air Sepsis Recent Fever Within 48 Hours No Sepsis New/Unexplained Change in Mental Status N/A Sepsis Action Taken by Nursing No Action Required 01/11/25 10:08 01/11/25 13:14 01/11/25 14:04 Temperature Temperature Source Pulse Rate 81 97 H 90 Respiratory Rate 16 Respiratory Effort / Characteristics Respiratory Depth Respiratory Pattern Blood Pressure 133/72 Blood Pressure Mean 92 Blood Pressure Position Pulse Oximetry 92 Oxygen Delivery Method Room Air Sepsis Recent Fever Within 48 Hours Sepsis New/Unexplained Change in Mental Status Sepsis Action Taken by Nursing Laboratory Data 01/11/25 10:00 01/11/25 10:00 Lab Results 01/11/25 01/11/25 Range/Units 10:00 12:44 WBC 7.69 (4.8-10.8) K/ul RBC 4.86 (4.20-5.40) M/uL Hgb 15.0 (12.0-16.0) g/dl Hct 46.6 (37.0-47.0) % MCV 95.9 (80.0-100.0) fL MCH 30.9 (25.0-34.0) pg MCHC 32.2 (32.0-36.0) g/dL RDW Std Deviation 50.5 H (36.4-46.3) fL RDW Coeff of Martin 14.4 (11.5-14.5) % Plt Count 233 (130-400) K/uL MPV 10.3 (9.4-12.4) fL Immature Gran % (Auto) 2.6 % Neut % (Auto) 71.0 % Lymph % (Auto) 14.0 % [place] % (Auto) 10.3 % Eos % (Auto) 1.7 % Baso % (Auto) 0.4 % Neut # (Auto) 5.46 (1.40-6.50) K/uL Lymph # (Auto) 1.08 L (1.20-3.40) K/uL [place] # (Auto) 0.79 H (0.11-0.59) K/uL Eos # (Auto) 0.13 (0.00-0.50) K/uL Baso # (Auto) 0.03 (0.00-0.20) K/uL Immature Gran # (Auto) 0.20 (0.01-0.20) K/uL PT 10.6 (9.0-12.0) Seconds INR 1.0 (0.9-1.1) Sodium 139 (136-145) mmol/L Potassium 4.0 (3.5-5.1) mmol/L Chloride 107 (98-107) mmol/L Carbon Dioxide 21 (21-32) mmol/L Anion Gap 11 (3-11) BUN 13 (6-23) mg/dl Creatinine 1.03 (0.6-1.2) mg/dl Est Cr Clr Drug Dosing 34.8 ml/min eGFR 54.29 BUN/Creatinine Ratio 12.6 (10-20) Glucose 124 H (70-99(Fasting)) mg/dl Calcium 9.1 (8.6-10.3) mg/dl Magnesium 1.9 (1.7-2.4) mg/dl Total Bilirubin 0.7 (0.2-1.0) mg/dl AST 34 (13-39) U/L ALT 29 (7-52) U/L Alkaline Phosphatase 70 (34-104) U/L Troponin I High Sens 10.8 (0-14) pg/ml Total Protein 7.0 (6.0-8.3) gm/dl Albumin 3.9 (3.4-5.0) gm/dl Globulin 3.1 (2.5-4.0) gm/dl Albumin/Globulin Ratio 1.3 (0.9-2) Urine Color Yellow Urine Appearance Clear (Clear) Urine pH 7.0 (4.5-7.5) Ur Specific [place] 1.015 (1.000-1.030) Urine Protein Negative (Negative) Urine Glucose (UA) Negative (Negative) Urine Ketones 1+ H (Negative) Urine Blood Negative (Negative) Urine Nitrite Negative (Negative) Urine Bilirubin Negative (Negative) Urine Urobilinogen Negative (Negative) Ur Leukocyte Esterase 1+ H (Negative) Urine WBC (Auto) 0-5 (0-5) /hpf Urine RBC (Auto) 11-20 H (0-2) /hpf U Hyaline Cast (Auto) 3-5 H (0-2) /lpf U Epithel Cells (Auto) 3-5 H (0-2) /hpf Urine Bacteria (Auto) None Seen (None Seen) Urine Comment Administered Medications Discontinued Medications Sodium Chloride (Nss) 1,000 mls @ 999 mls/hr IV .Q1H1M DOUGLAS Stop: 01/11/25 11:00 Last Infusion: 01/11/25 13:16 Dose: Infused Documented By: Admin: 01/11/25 10:07 Dose: 999 mls/hr Documented By: JENY Ioversol (Optiray 320 100ml) 93 ml IV ONCE ONE Stop: 01/11/25 12:51 Last Admin: 01/11/25 12:50 Dose: 93 ml Documented By: PEPPER Imaging Data Radiologist's Impression: Head CT 01/11/25 11:03 CT head/brain wo con CLINICAL HISTORY: 84 years-old Female with syncope. Acute syncope TECHNIQUE: Multiple axial CT images of the head were obtained without contrast. A dose lowering technique was utilized adhering to the principles of ALARA. CT DOSE: 625.8 mGy.cm COMPARISON: 09/14/2024 FINDINGS: No acute intracranial hemorrhage, midline shift, intracranial mass, hydrocephalus, territorial ischemia or abnormal extra-axial collection. Involutional changes with chronic microvascular ischemic disease. The calvarium is intact. The paranasal sinuses, mastoid air cells, and middle ear cavities are clear. IMPRESSION: No acute intracranial abnormality. ACT 112: Negative or not required by law. The above report was generated using voice recognition software. It may contain grammatical, syntax or spelling errors. Electronically signed by: Koko Villegas M.D. 01/11/2025 12:28 PM Abdomen/Pelvis CT 01/11/25 12:[address] WITH IV CONTRAST CT DOSE: 696.44 mGy.cm HISTORY: Acute generalized abdominal pain with diarrhea Diarrhea TECHNIQUE: Multiaxial CT images of the abdomen and pelvis were performed following the IV administration of 93 cc of Optiray, A dose lowering technique was utilized adhering to the principles of ALARA. COMPARISON STUDY: None. FINDINGS: Clear lung bases. No pneumatosis or pneumoperitoneum. Unremarkable spleen, pancreas and adrenal glands. Cholecystectomy is likely postsurgical mild biliary ductal dilation. Patent portal vein. Mild cortical thinning of the kidneys. No hydronephrosis. There is a wedge-shaped ill-defined focus of decreased enhancement/hypodensity within the posterior superior pole right kidney measuring 2.1 x 1.8 cm. The renal arteries and veins appear patent. Decompressed bladder with wall thickening. Calcified fundal uterine fibroid. Bilateral adnexal versus ovarian cysts measure up to 3.4 cm on the left and 2 cm on the right. Atherosclerosis of the aorta without aneurysm. No lymphadenopathy. Small hiatal hernia. Colonic diverticulosis without acute diverticulitis. Air- fluid levels noted within the right hemicolon. No bowel obstruction or bowel wall thickening. Normal appendix. Prior ventral abdominal wall hernia repair. Superior endplate compression deformity of less than 20% with fracture line noted involving the anterior aspect of the superior endplate at L2. No retropulsion or significant paravertebral edema. IMPRESSION: 1. No bowel obstruction or bowel wall thickening. 2. Colonic diverticulosis without acute diverticulitis. 3. Infarct of the superior pole right kidney measures 2 cm, likely acute versus subacute. 4. Mild acute to subacute appearing L2 superior endplate compression deformity without retropulsion. 5. Incidental findings as above. ACT 112: Negative or not required by law. The above report was generated using voice recognition software. It may contain grammatical, syntax or spelling errors. Electronically signed by: Koko Villegas M.D. 01/11/2025 1:25 PM Discharge Plan Visit Data Chief Complaint: Syncope ED Provider: Jarret Wan Discharge Problem: Infarction of kidney Patient Disposition: Admitted As Inpatient Condition: Fair Forms Stand Alone Forms: [facility] Prescriptions Prescriptions: No Action donepezil 10 mg tablet 10 mg PO QAM 90 Days Qty: 90 3RF divalproex 500 mg tablet extended release 24 hr 500 mg PO DAILY Qty: 90 2RF omeprazole 20 mg capsule,delayed release(DR/EC) 20 mg PO QAM cholecalciferol (vitamin D3) 25 mcg (1,000 unit) capsule 25 mcg PO DAILY ascorbic acid (vitamin C) 500 mg capsule 500 mg PO QAM melatonin 5 mg capsule 5 mg PO HS PRN (Reason: Sleep) sertraline 25 mg tablet 25 mg PO DAILY celecoxib 100 mg capsule 100 mg PO DAILY losartan 25 mg tablet 12.5 mg PO DAILY metoprolol succinate 25 mg PO BID alendronate 70 mg tablet 70 mg PO QAM Rx Instructions: saturdays colestipol 1 gram tablet 1 g PO BID levetiracetam [Keppra] 250 mg tablet 250 mg PO BID memantine 5 mg tablet 5 mg PO BID Referrals Referrals: Kris Gutierrez MD [Primary Care Provider] -
[2025-01-11] MEDS: SODIUM CHLORIDE 0.9% 1,000 ML IV SCH ×2 (10:07→19:09)
[2025-01-11 10:17] LABS: Hematocrit (blood only) 46.6 % (37.0-47.0); Hemoglobin 15.0 g/dl (12.0-16.0); Immature Granulocytes # (auto) 0.20 K/uL (0.01-0.20); Immature Granulocytes % (auto) 2.6 %; Mean Corpuscular Hemoglobin 30.9 pg (25.0-34.0); Mean Corpuscular Volume 95.9 fL (80.0-100.0); Platelet Count 233 K/uL (130-400); RDW Standard Deviation 50.5 fL (36.4-46.3); Red Blood Count 4.86 M/uL (4.20-5.40); White Blood Count 7.69 K/ul (4.8-10.8)
[2025-01-11 10:30] LABS: INR 1.0 (0.9-1.1); Prothrombin Time 10.6 Seconds (9.0-12.0)
[2025-01-11 10:37] LABS: Anion Gap 11.0 (3-11); Bilirubin,Total 0.7 mg/dl (0.2-1.0); Calcium 9.1 mg/dl (8.6-10.3); Carbon Dioxide 21.0 mmol/L (21-32); Chloride 107.0 mmol/L (98-107); Magnesium 1.9 mg/dl (1.7-2.4); Potassium 4.0 mmol/L (3.5-5.1); Sodium 139.0 mmol/L (136-145)
[2025-01-11 10:43] LABS: Alanine Aminotransferase 29.0 U/L (7-52); Albumin Globulin Ratio 1.3 (0.9-2); Alkaline Phosphatase 70.0 U/L (34-104); Blood Urea Nitrogen 13.0 mg/dl (6-23); Creatinine Clr Calc Pharmacy 34.8 ml/min; Globulin 3.1 gm/dl (2.5-4.0); Glucose 124.0 mg/dl (70-99(Fasting)); Total Protein 7.0 gm/dl (6.0-8.3)
--- NOTE | 2025-01-11 12:30 | CT Scan Report ---
CT head/brain wo con CLINICAL HISTORY: 84 years-old Female with syncope. Acute syncope TECHNIQUE: Multiple axial CT images of the head were obtained without contrast. A dose lowering tech nique was utilized adhering to the principles of ALARA. CT DOSE: 625.8 mGy.cm COMPARISON: 09/14/2024 FINDINGS: No acute intracranial hemorrhage, midline shift, intracranial mass, hydrocephalus, territorial ischem ia or abnormal extra-axial collection. Involutional changes with chronic microvascular ischemic disea se. The calvarium is intact. The paranasal sinuses, mastoid air cells, and middle ear cavities are clear . IMPRESSION: No acute intracranial abnormality. ACT 112: Negative or not required by law. The above report was generated using voice recognition software. It may contain grammatical, syntax o r spelling errors. Electronically signed by: Koko Villegas M.D. 01/11/2025 12:28 PM
[2025-01-11] MEDS: OPTIRAY 320 100ml IV ONE (12:50)
--- NOTE | 2025-01-11 13:27 | CT Scan Report ---
ABDOMEN AND PELVIS CT WITH IV CONTRAST CT DOSE: 696.44 mGy.cm HISTORY: Acute generalized abdominal pain with diarrhea Diarrhea TECHNIQUE: Multiaxial CT images of the abdomen and pelvis were performed following the IV administrat ion of 93 cc of Optiray, A dose lowering technique was utilized adhering to the principles of ALARA. COMPARISON STUDY: None. FINDINGS: Clear lung bases. No pneumatosis or pneumoperitoneum. Unremarkable spleen, pancreas and adr enal glands. Cholecystectomy is likely postsurgical mild biliary ductal dilation. Patent portal vein. Mild cortical thinning of the kidneys. No hydronephrosis. There is a wedge-shaped ill-defined focus of decreased enhancement/hypodensity within the posterior superior pole right kidney measuring 2.1 x 1.8 cm. The renal arteries and veins appear patent. Decompressed bladder with wall thickening. Calcif ied fundal uterine fibroid. Bilateral adnexal versus ovarian cysts measure up to 3.4 cm on the left a nd 2 cm on the right. Atherosclerosis of the aorta without aneurysm. No lymphadenopathy. Small hiatal hernia. Colonic diverticulosis without acute diverticulitis. Air-fluid levels noted with in the right hemicolon. No bowel obstruction or bowel wall thickening. Normal appendix. Prior ventral abdominal wall hernia repair. Superior endplate compression deformity of less than 20% with fracture line noted involving the anterior aspect of the superior endplate at L2. No retropulsion or signific ant paravertebral edema. IMPRESSION: 1. No bowel obstruction or bowel wall thickening. 2. Colonic diverticulosis without acute diverticulitis. 3. Infarct of the superior pole right kidney measures 2 cm, likely acute versus subacute. 4. Mild acute to subacute appearing L2 superior endplate compression deformity without retropulsion. 5. Incidental findings as above. ACT 112: Negative or not required by law. The above report was generated using voice recognition software. It may contain grammatical, syntax o r spelling errors. Electronically signed by: Koko Villegas M.D. 01/11/2025 1:25 PM
[2025-01-11 13:52] LABS: Appearance Urine Clear (Clear); Bacteria Urine Automated None Seen (None Seen); Glucose Urine UA Negative (Negative); WBC Urine Automated 0-5 /hpf (0-5)
--- NOTE | 2025-01-11 14:24 | History & Physical Report ---
Date of Service January 11, 2025 Assessment & Plan (1) Syncope: (2) Infarction of kidney: (3) Diarrhea: (4) Myoclonus: (5) Dementia: (6) Primary progressive aphasia: (7) HTN (hypertension): (8) Anxiety: Plan 84 year old female with PMH significant for dementia, primary progressive aphasia, myoclonus, peripheral artery disease, history of symptomatic PVCs, hypertension, GERD, PMR, osteoporosis, idiopathic peripheral neuropathy, history of Guillain-Mason syndrome, IBS with diarrhea, and anxiety who presented to the ED on 01/11/2025 after having a syncopal episode at home. Syncope Likely due to dehydration/diarrhea EKG NSR Head CT negative Labs and UA unremarkable Obtain orthostatic vitals PT/OT consults Renal infarct CT abdomen and pelvis revealed infarct of superior pole right kidney measuring 2cm CTA abdomen and pelvis revealed low attenuation area in upper right kidney that could represent an infarct; normal abdominal aorta, no renal artery stenosis, no pelvic artery stenosis CTA chest pending Echo pending Hypercoagulable labs pending A1C and lipid panel in AM Discussed with Dr Dmitriy Rivera from [facility] who recommended echo and CTA chest to evaluate for thrombus and noted patient will need lifelong anticoagulation Heparin drip started Abnormal CT scan findings -Uterine leiomyoma -Bilateral ovarian cysts measure up to 3.4cm on the left and 2cm on the right - recommend pelvic ultrasound for further evaluation -Atherosclerosis of aorta without aneurysm -Small hiatal hernia -Colonic diverticulosis without diverticulitis -L2 superior endplate compression deformity without retropulsion - recommend follow up with orthospine IBS with diarrhea Follows with [facility] GI last seen 01/05/2025 Continue colestipol Avoid immodium per GI Stool studies pending collection Consider GI consult if no improvement for possible imaging Hypertension Continue losartan History of PVCs Continue metoprolol Dementia Myoclonus Follows with [place] [facility] last seen 12/07/2024 Continue memantine and donepezil Continue keppra and divalproex PMR Follows with [facility] Rheumatology last seen 12/10/2024 GERD Continue omeprazole DVT Prophylaxis: Heparin drip Code Status: FULL CODE - As per discussion at bedside with the patient. PCP: Dr Kris Gutierrez Disposition: admit to [facility] Patient seen in collaboration with Dr Dexter. Please see addendum. I spent a total of 75 minutes coordinating, documenting and providing care for this patient excluding time spent in the performance of separately billed services or time spent by another provider/QHP. Admission and Anticipated Discharge Date Admission Date: 01/11/2025 History of Present Illness Chief Complaint: syncope Primary Care Provider: Kris Gutierrez MD 84 year old female with PMH significant for dementia, primary progressive aphasia, peripheral artery disease, history of symptomatic PVCs, hypertension, GERD, PMR, osteoporosis, idiopathic peripheral neuropathy, history of Guillain- Mason syndrome, IBS with diarrhea, and anxiety who presented to the ED on 01/11/2025 after having a syncopal episode at home. Patient has expressive aphasia and is unable to provide history so history was provided by her . He reports that patient has had ongoing diarrhea for years that has acutely worsened in the last few weeks. Patient was brought to the ED three days ago for x3 episodes of diarrhea as her was concerned about dehydration. She was given fluids and discharged home. Today, patient had two more episodes of diarrhea and then reported that she felt nauseous. Her helped her to the kitchen sink and then went to the next room. He states he heard the patient falling and witnessed her on her way down to the ground. She bumped into the stove and cabinets and the is not sure if she hit her head or not. He notes that he saw her maintain consciousness, however, he did not see the initial start to her falling as he was in the next room. He notes that she has been complaining of chills recently but she denies any fevers, cough, cold symptoms, chest pain, SOB, abdominal pain, vomiting, calf tenderness. She notes weakness. Her denies any recent changes to medications. She took her medications this morning. Allergies Allergy/AdvReac Type Severity Reaction Status Date / Time amoxicillin Allergy Unknown HIVES, RASH Verified 12/07/24 13:39 Influenza Virus Vaccines Allergy Unknown cannot Verified 12/07/24 13:39 have d/t hx of guillian barre pollen Allergy Uncoded 12/07/24 13:39 Home Medications Medication Instructions Recorded Confirmed Type ascorbic acid (vitamin C) 500 mg 500 mg PO QAM 02/22/22 01/11/25 History capsule cholecalciferol (vitamin D3) 25 25 mcg PO DAILY 02/22/22 01/11/25 History mcg (1,000 unit) capsule melatonin 5 mg capsule 5 mg PO HS PRN Sleep 02/22/22 01/11/25 History omeprazole 20 mg capsule,delayed 20 mg PO QAM 02/22/22 01/11/25 History release losartan 25 mg tablet 12.5 mg PO DAILY 06/02/22 01/11/25 History metoprolol succinate 25 mg PO BID 06/02/22 01/11/25 History donepezil 10 mg tablet 10 mg PO QAM 90 days #90 tabs 04/26/24 01/11/25 Rx celecoxib 100 mg capsule 100 mg PO DAILY 09/06/24 01/11/25 History divalproex 500 mg tablet,extended 500 mg PO DAILY #90 tabs 11/08/24 01/11/25 Rx release 24 hr sertraline 25 mg tablet 25 mg PO DAILY 12/07/24 01/11/25 History alendronate 70 mg tablet 70 mg PO QAM 01/11/25 01/11/25 History colestipol 1 gram tablet 1 g PO BID 01/11/25 01/11/25 History levetiracetam 250 mg tablet 250 mg PO BID 01/11/25 01/11/25 History (Keppra) memantine 5 mg tablet 5 mg PO BID 01/11/25 01/11/25 History Past Med/Surg History Problem List (Updated 01/11/25 @ 16:36 by YONIS Hill) Syncope Acalculia Infarction of kidney (Acute) Diarrhea (Acute) Myoclonus Anxiety Dementia Primary progressive aphasia HTN (hypertension) Osteoporosis (Chronic) Medical History (Updated 01/11/25 @ 16:36 by YONIS Hill) Vitamin D deficiency Confusion Seizure-like activity COVID-19 Depression Aphasia Stroke-like symptoms Memory loss Speech fluency problem Guillain-Mason syndrome following vaccination Encounter for annual routine gynecological examination History of allergy Laryngopharyngeal reflux Vocal cord paralysis Gastroenteritis due to COVID-19 virus COVID-19 Incisional hernia Surgical History S/P hemorrhoidectomy H/O tubal ligation S/P cholecystectomy laparoscopic with cholangiogram, 2014, [facility] H/O hernia repair laparoscopic, 10cm surgimesh, 05/2015, [facility] Family History (Updated 01/11/25 @ 16:39 by YONIS Hill) Mother Colorectal cancer Hypertension Grandmother Diabetes Father Hypertension Heart disease Denies family history of Ovarian cancer Breast cancer Social History (Updated 01/11/25 @ 16:39 by YONIS Hill) Smoking Status: Former smoker Second Hand Exposure: No; Do You Dip or Chew Tobacco: No; Hx Alcohol Use: No Hx Substance Use: No Preferred Language: Turkmen Communication Ability: Impaired Communication Ability Comment: expressive aphasia Rn Patient Services Required: No Beliefs That Will Affect Care: None marital status: Current Living Situation: Spouse Feels Safe at Home: Yes Dental Care, Regularly: Yes Seatbelt Use: always Sunscreen Use: Yes Assistive Devices: None Review of Systems Review of Systems: All systems reviewed & are unremarkable except as noted in HPI & below Physical Exam Physical Exam: General/Psych: WD/WN, sitting up in bed, NAD, expressive aphasia, euthymic affect Head: normocephalic, atraumatic Eyes: normal inspection, PERRL, conjunctivae pink, anicteric sclerae ENT: external ear and nose normal, oropharynx normal Neck: normal visual inspection, trachea midline, no thyromegaly Respiratory: normal respiratory effort, lungs clear to auscultation, no wheeze/rales/rhonchi, no accessory muscle use Cardiovascular: regular rate and rhythm, no murmur/rub/gallop, no JVD Extremities: no cyanosis or clubbing, normal peripheral pulses, no BLE edema Abdomen/GI: normal bowel sounds, soft, nontender, no hepatosplenomegaly Neurologic/MSK: A+Ox3, motor strength 5/5, moves all extremities Skin: no rashes, normal color, warm and dry Results & Data Results & Data Vital Signs (Past 12 Hours) Vital Signs Temp Pulse Resp BP Pulse Ox O2 Del Method 01/11/25 14:04 90 01/11/25 13:14 97 H 16 133/72 92 Room Air 01/11/25 10:08 81 01/11/25 09:48 95 Room Air 01/11/25 09:48 95 Room Air 01/11/25 09:48 36.5 C 85 20 117/72 95 Room Air Laboratory Results Short CBC 01/11/25 Range/Units 10:00 WBC 7.69 (4.8-10.8) K/ul Hgb 15.0 (12.0-16.0) g/dl Hct 46.6 (37.0-47.0) % Plt Count 233 (130-400) K/uL BMP 01/11/25 10:00 Sodium 139 Potassium 4.0 Chloride 107 Carbon Dioxide 21 BUN 13 Creatinine 1.03 Glucose 124 H Calcium 9.1 Liver Function 01/11/25 Range/Units 10:00 Total Bilirubin 0.7 (0.2-1.0) mg/dl AST 34 (13-39) U/L ALT 29 (7-52) U/L Alkaline Phosphatase 70 (34-104) U/L Albumin 3.9 (3.4-5.0) gm/dl Urine 01/11/25 Range/Units 12:44 Urine Color Yellow Urine Appearance Clear (Clear) Urine pH 7.0 (4.5-7.5) Ur Specific Otis 1.015 (1.000-1.030) Urine Protein Negative (Negative) Urine Glucose (UA) Negative (Negative) I have independently reviewed and interpreted patient's admitting labs including CBC, CMP, UA. Diagnostic Findings Head CT 01/11/25 11:03 CT head/brain wo con CLINICAL HISTORY: 84 years-old Female with syncope. Acute syncope TECHNIQUE: Multiple axial CT images of the head were obtained without contrast. A dose lowering technique was utilized adhering to the principles of ALARA. CT DOSE: 625.8 mGy.cm COMPARISON: 09/14/2024 FINDINGS: No acute intracranial hemorrhage, midline shift, intracranial mass, hydrocephalus, territorial ischemia or abnormal extra-axial collection. Involutional changes with chronic microvascular ischemic disease. The calvarium is intact. The paranasal sinuses, mastoid air cells, and middle ear cavities are clear. IMPRESSION: No acute intracranial abnormality. ACT 112: Negative or not required by law. The above report was generated using voice recognition software. It may contain grammatical, syntax or spelling errors. Electronically signed by: Koko Villegas M.D. 01/11/2025 12:28 PM Abdomen/Pelvis CT 01/11/25 12:[address] WITH IV CONTRAST CT DOSE: 696.44 mGy.cm HISTORY: Acute generalized abdominal pain with diarrhea Diarrhea TECHNIQUE: Multiaxial CT images of the abdomen and pelvis were performed following the IV administration of 93 cc of Optiray, A dose lowering technique was utilized adhering to the principles of ALARA. COMPARISON STUDY: None. FINDINGS: Clear lung bases. No pneumatosis or pneumoperitoneum. Unremarkable spleen, pancreas and adrenal glands. Cholecystectomy is likely postsurgical mild biliary ductal dilation. Patent portal vein. Mild cortical thinning of the kidneys. No hydronephrosis. There is a wedge-shaped ill-defined focus of decreased enhancement/hypodensity within the posterior superior pole right kidney measuring 2.1 x 1.8 cm. The renal arteries and veins appear patent. Decompressed bladder with wall thickening. Calcified fundal uterine fibroid. Bilateral adnexal versus ovarian cysts measure up to 3.4 cm on the left and 2 cm on the right. Atherosclerosis of the aorta without aneurysm. No lymphadenopathy. Small hiatal hernia. Colonic diverticulosis without acute diverticulitis. Air- fluid levels noted within the right hemicolon. No bowel obstruction or bowel wall thickening. Normal appendix. Prior ventral abdominal wall hernia repair. Superior endplate compression deformity of less than 20% with fracture line noted involving the anterior aspect of the superior endplate at L2. No retropulsion or significant paravertebral edema. IMPRESSION: 1. No bowel obstruction or bowel wall thickening. 2. Colonic diverticulosis without acute diverticulitis. 3. Infarct of the superior pole right kidney measures 2 cm, likely acute versus subacute. 4. Mild acute to subacute appearing L2 superior endplate compression deformity without retropulsion. 5. Incidental findings as above. ACT 112: Negative or not required by law. The above report was generated using voice recognition software. It may contain grammatical, syntax or spelling errors. Electronically signed by: Koko Villegas M.D. 01/11/2025 1:25 PM Abdomen/Pelvis CTA 01/11/25 15:30 Clinical history: Renal infarct Technique: Axial computed tomography images were obtained of the abdomen and pelvis after the administration of intravenous contrast according to the CT angiogram protocol No prior examination is available for comparison Findings: The abdominal aorta appears unremarkable with no sign of aneurysm or dissection. No stenosis is seen involving it. The celiac axis and superior mesenteric artery are patent with no stenosis identified. The inferior mesenteric artery is patent as well. There is no sign of renal artery stenosis. The iliac arteries appear unremarkable with no sign of aneurysm or stenosis. The visualized common femoral arteries appear unremarkable as well The liver is overall of normal size, attenuation, and contour with no sign of cirrhosis or significant fatty infiltration. No liver mass lesion is seen. The portal vein is patent. The gallbladder has been removed. There is mild bile duct dilatation that is likely due to the postcholecystectomy state The spleen is of normal size. No focal splenic lesion is evident. The pancreas appears normal with no sign of acute or chronic pancreatitis and no mass lesion noted. The pancreatic duct is of normal caliber. The adrenal glands appear unremarkable. No definite renal or proximal ureteral calculi are seen on this contrast-enhanced study. There is no hydronephrosis or perinephric stranding. There is an approximately 1.6 cm low-attenuation area in the cortex of the upper right kidney that could represent an infarct No adenopathy is seen. There is a small hiatal hernia. There is no sign of small bowel obstruction. There is diverticulosis without definite diverticulitis. No free intraperitoneal fluid or air is identified. No distal ureteral or bladder calculi are seen. No bladder mass lesion is evident. There is a partially calcified uterine leiomyoma. There is a 3.3 cm left ovarian cyst and there is a 1.9 cm right ovarian cyst The lungs bases appear clear. There is an L2 compression fracture, likely old. There is lumbar scoliosis and degenerative disc disease. No focal osseous lesion is seen Impression: 1. Normal-appearing abdominal aorta 2. No sign of renal or mesenteric artery stenosis 3. No apparent stenosis of the pelvic arteries 4. Low-attenuation area in the upper right kidney that could represent an infarct. Focal pyelonephritis is a less likely possibility. A renal mass is much less likely. A follow-up renal protocol CT with and without contrast could be considered in 3 months 5. Diverticulosis without definite diverticulitis 6. Uterine leiomyoma 7. Bilateral ovarian cysts, indeterminate in nature in this postmenopausal patient. A pelvic ultrasound is recommended for further evaluation 8. Small hiatal hernia ACT 112: Positive. There are findings on this exam that require communication between the performing entity and the patient following Patient Test Result Information Act ([place] ACT 112) guidelines. Electronically signed by Felix Richard 01-11-2025 4:11 PM ECG Additional Comments: I have independently reviewed and interpreted patient's admitting EKG which revealed: NSR at a rate of 80bpm Code Status & VTE Plan Code Status Full Code Supervising Physician Co-Signing Physician Notes 84-year-old lady with PMH of dementia, primary progressive aphasia, myoclonus, peripheral artery disease, HTN, GERD, PMR, osteoporosis, idiopathic peripheral neuropathy, Guillain-Ricks syndrome, IBS with diarrhea, anxiety presents to the ED with complaint of syncopal episode at home. Patient reports feeling briefly lightheaded prior to fall in kitchen today which patient's witnessed, he reports that there was no loss of consciousness after the fall. Of note, patient is having problems with diarrhea since about 2 years, is being evaluated by GI as an outpatient, has been in the ED about 4 days ago for IV fluid due to concerns of dehydration iso worsening diarrhea lately. Today again they presented to the ED for the same reason after the fall. They felt that patient is dehydrated due to diarrhea and is the reason for fall. Admitting CTAP with incidental finding of right renal superior pole infarct of around 2 cm. this was thoroughly explained to the patient and her at bedside and possible plan of care pending CTA of abdomen and pelvis. CTA abdomen and pelvis was obtained with no vascular issues. Vascular surgeon at [place] was contacted RE: ?? transfer/further recommendation, CTA of the chest was recommended and lifelong anticoagulation was recommended. Labs fairly WNL, LFT WNL, troponin normal, imagings reviewed. Diarrhea, get stool PCR, continue with home colestipol, possible GI consult if not improving. ivf w NSS for now. Right renal infarct: Echo, Zio patch as an outpatient, LDL, A1c, vascular surgery eval as an outpatient, continue with hydration, Hypercoagulable labs, low-dose heparin drip. Fall/syncope: likely 2/2 dehydration, ortho vitals, Continue hydration/use po electrolytes solutions, PT/OT, Zio patch monitoring. follow echo. L2 fracture: Vitamin D level, continue home vitamin D supplements, orthospine, PT/OT. On exam: GENERAL: Alert and oriented x3. NAD, on RA. Expressive aphasia. HEENT: No pallor, no icterus. Pupils equal, round and reactive to light. Oral mucosa moist. NECK: No JVD, no neck masses. HEART: S1 and S2 heard. Regular rate and rhythm. No murmur, no gallop. RESPIRATORY SYSTEM: Normal AP diameter. No accessory muscle use. No wheezing, no crackles. ABDOMEN: Soft, bowel sounds present, nontender, no distention. CENTRAL NERVOUS SYSTEM: No facial droop. Speech is clear. Obeys simple commands. Moves extremities. EXTREMITIES: No edema, no erythema seen. I have seen and examined the patient and have discussed the case with the provider above. I agree with the assessment and plan as stated. Total time spent independently: 45 minutes
[2025-01-11] MEDS: OPTIRAY 320 125ml IV ONE ×2 (15:46→17:30)
--- NOTE | 2025-01-11 16:12 | CT Scan Report ---
Clinical history: Renal infarct Technique: Axial computed tomography images were obtained of the abdomen and pelvis after the administration of intravenous contrast according to the CT angiogram protocol No prior examination is available for comparison Findings: The abdominal aorta appears unremarkable with no sign of aneurysm or dissection. No stenosis is seen involving it. The celiac axis and superior mesenteric artery are patent with no stenosis identified. The inferior mesenteric artery is patent as well. There is no sign of renal artery stenosis. The iliac arteries appear unremarkable with no sign of aneurysm or stenosis. The visualized common femoral arteries appear unremarkable as well The liver is overall of normal size, attenuation, and contour with no sign of cirrhosis or significant fatty infiltration. No liver mass lesion is seen. The portal vein is patent. The gallbladder has been removed. There is mild bile duct dilatation that is likely due to the postcholecystectomy state The spleen is of normal size. No focal splenic lesion is evident. The pancreas appears normal with no sign of acute or chronic pancreatitis and no mass lesion noted. The pancreatic duct is of normal caliber. The adrenal glands appear unremarkable. No definite renal or proximal ureteral calculi are seen on this contrast-enhanced study. There is no hydronephrosis or perinephric stranding. There is an approximately 1.6 cm low-attenuation area in the cortex of the upper right kidney that could represent an infarct No adenopathy is seen. There is a small hiatal hernia. There is no sign of small bowel obstruction. There is diverticulosis without definite diverticulitis. No free intraperitoneal fluid or air is identified. No distal ureteral or bladder calculi are seen. No bladder mass lesion is evident. There is a partially calcified uterine leiomyoma. There is a 3.3 cm left ovarian cyst and there is a 1.9 cm right ovarian cyst The lungs bases appear clear. There is an L2 compression fracture, likely old. There is lumbar scoliosis and degenerative disc disease. No focal osseous lesion is seen Impression: 1. Normal-appearing abdominal aorta 2. No sign of renal or mesenteric artery stenosis 3. No apparent stenosis of the pelvic arteries 4. Low-attenuation area in the upper right kidney that could represent an infarct. Focal pyelonephritis is a less likely possibility. A renal mass is much less likely. A follow-up renal protocol CT with and without contrast could be considered in 3 months 5. Diverticulosis without definite diverticulitis 6. Uterine leiomyoma 7. Bilateral ovarian cysts, indeterminate in nature in this postmenopausal patient. A pelvic ultrasound is recommended for further evaluation 8. Small hiatal hernia ACT 112: Positive. There are findings on this exam that require communication between the performing entity and the patient following Patient Test Result Information Act ([place] ACT 112) guidelines. Electronically signed by Felix Richard 01-11-2025 4:11 PM
--- NOTE | 2025-01-11 18:35 | CT Scan Report ---
EXAMINATION: CT angio chest with contrast CLINICAL HISTORY: Renal infarction PRIORS: None TECHNIQUE: Contiguous axial images were obtained through the chest with the use of intravenous contrast. Sagittal and coronal reformations are supplied. FINDINGS: Dental amalgam creates significant beam hardening artifact. Motion artifact degrades image quality. The pulmonary arteries are well opacified. A possible filling defect is present in the right lower lobe segmental pulmonary artery, image 89 through 91, series 4 and corresponding sagittal image 20, series 401. No additional filling defect in the pulmonary arteries identified. No CT features of heart strain. Mild cardiomegaly noted. No pleural or pericardial effusion. Nonpathologically enlarged lymph nodes present in the mediastinum. Trachea and mainstem bronchi patent. No airspace consolidation, pneumothorax or dominant mass. Trachea is tortuous. No acute abnormality in the upper abdomen. Moderate degenerative change of the thoracic spine. IMPRESSION: 1. A segmental right lower lobe pulmonary embolism is identified, allowing for significant motion and beam hardening artifact, with no CT features of heart strain. ACT 112: Positive. There are findings on this examination that require communication between the performing entity and the patient following Patient Test Result Information Act ([place] ACT 112) guidelines. Electronically signed by Mita Magana 01-11-2025 6:35 PM
[2025-01-11] MEDS: HEPARIN 25000 UNIT/500 ML D5W 25,000 UNITS/500 ML BAG IV SCH (20:51)
[2025-01-11] MEDS: Heparin IV Adult Wt-Based Standard *NO* INITIAL Bolus Protocol IV STA (21:32)
[2025-01-11] MEDS: LIDOCAINE 5% 1 PATCH TD STA (21:36)
[2025-01-11] MEDS: levETIRAcetam 250 MG TAB PO SCH (21:38)
[2025-01-11] MEDS: COLESTIPOL HCL 1 GM TAB PO SCH (21:38)
[2025-01-11] MEDS: METOPROLOL SUCC 25MG EXT REL TAB PO SCH (21:38)
[2025-01-11] MEDS: MEMANTINE HCL 5 MG TAB PO SCH (21:39)
[2025-01-11 21:44] LABS: Cholesterol 154.0 mg/dl (0-200); HDL Cholesterol 55.0 mg/dl; Triglycerides 115.0 mg/dl (0-150)
[2025-01-12 03:37] LABS: Hematocrit (blood only) 40.0 % (37.0-47.0); Hemoglobin 12.9 g/dl (12.0-16.0); Mean Corpuscular Hemoglobin 31.0 pg (25.0-34.0); Mean Corpuscular Volume 96.2 fL (80.0-100.0); Platelet Count 187 K/uL (130-400); RDW Standard Deviation 50.6 fL (36.4-46.3); Red Blood Count 4.16 M/uL (4.20-5.40); White Blood Count 6.41 K/ul (4.8-10.8)
[2025-01-12] MEDS: MELATONIN 3 MG TAB PO PRN (04:12)
[2025-01-12 04:38] LABS: ANTI-Xa, UFH(UnfractionatedHep 0.73 IU/ml (0.3-0.7)
[2025-01-12 05:18] LABS: Anion Gap 7.0 (3-11); Blood Urea Nitrogen 7.0 mg/dl (6-23); Calcium 8.1 mg/dl (8.6-10.3); Carbon Dioxide 23.0 mmol/L (21-32); Chloride 112.0 mmol/L (98-107); Creatinine Clr Calc Pharmacy 46.8 ml/min; Glucose 107.0 mg/dl (70-99(Fasting)); Magnesium 1.9 mg/dl (1.7-2.4); Potassium 4.3 mmol/L (3.5-5.1); Sodium 142.0 mmol/L (136-145)
[2025-01-12] MEDS: REMOVE LIDODERM PATCH SCH ×2 (06:27→21:53)
[2025-01-12 07:24] LABS: Hemoglobin A1C 5.3 % (4.5-5.6)
[2025-01-12] MEDS: DONEPEZIL HCL 10 MG TAB PO SCH (08:08)
[2025-01-12] MEDS: CHOLECALCIFEROL 25 MCG (1000 UNITS) TAB PO SCH (08:08)
[2025-01-12] MEDS: SERTRALINE HCL 50 MG TABLET PO SCH (08:08)
[2025-01-12] MEDS: ASCORBIC ACID 500 MG TAB PO SCH (08:08)
[2025-01-12] MEDS: DIVALPROEX EXTENDED RELEASE 500 MG TAB PO SCH (08:09)
[2025-01-12] MEDS: ACETAMINOPHEN 325 MG TAB PO PRN (08:10)
[2025-01-12] MEDS: ASPIRIN 81 MG ECTAB PO SCH (08:10)
--- NOTE | 2025-01-12 12:08 | Hospitalist Progress Note ---
Date of Service January 12, 2025 Assessment & Plan (1) Syncope: (2) Infarction of kidney: (3) Diarrhea: (4) Myoclonus: (5) Dementia: (6) Primary progressive aphasia: (7) HTN (hypertension): (8) Anxiety: Plan 84 year old female with PMH significant for dementia, primary progressive aphasia, myoclonus, peripheral artery disease, history of symptomatic PVCs, hypertension, GERD, PMR, osteoporosis, idiopathic peripheral neuropathy, history of Guillain-[place] syndrome, IBS with diarrhea, and anxiety who presented to the ED on 01/11/2025 after having a syncopal episode at home. Syncope Likely due to dehydration/diarrhea EKG NSR Head CT negative Labs and UA unremarkable Orthostatic vitals pending PT/OT consults- recommending acute rehab on dc Renal infarct Pulmonary Emboli CT abdomen and pelvis revealed infarct of superior pole right kidney measuring 2cm CTA abdomen and pelvis revealed low attenuation area in upper right kidney that could represent an infarct; normal abdominal aorta, no renal artery stenosis, no pelvic artery stenosis CTA chest noting pulmonary Emboli Echo with small patent foramen ovale Hypercoagulable labs pending A1C and lipid panel normal Admitting team discussed with Dr Dmitriy Rivera from [facility] who recommended echo and CTA chest to evaluate for thrombus and noted patient will need lifelong anticoagulation Heparin drip started Monitor H/H Abnormal CT scan findings Calcified Uterine leiomyoma with noted bilateral ovarian cysts that measure up to 3.4cm on the left and 2cm on the right - recommend pelvic ultrasound for further evaluation, ordered and pending in the setting of new PE. Atherosclerosis of aorta without aneurysm- will need PCP followup as an outpt Small hiatal hernia-monitor for any feeding issues L2 superior endplate compression deformity without retropulsion - recommend follow up with orthospine, pain control prn IBS with diarrhea Follows with [facility] last seen 01/05/2025 Continue colestipol Avoid Imodium per GI Stool studies pending collection (c diff and stool Pcr) Consider GI consult if no improvement for possible imaging Hypertension Continue losartan History of PVCs Continue metoprolol Dementia Myoclonus Follows with [facility] last seen 12/07/2024 Continue memantine and donepezil Continue keppra and divalproex PMR Follows with [facility] last seen 12/10/2024 GERD Continue omeprazole DVT Prophylaxis: Heparin drip Code Status: FULL CODE - As per discussion at bedside with the patient. PCP: Dr Kris Gutierrez Dispo: acute rehab once medically stable Admission and Anticipated Discharge Date Admission Date: January 11, 2025 Subjective Pt was seen in the AM with and daughter at bedside Per family has aphasia Pt noting pain to her right hip Later family with additional questions. Called and updated once more. Review of Systems Review of Systems: All systems reviewed & are unremarkable except as noted in Subjective Physical Exam Physical Exam: General: Alert, oriented. No acute distress Skin: No noted rashes or bruises Psych: Appropriate mood and affect Neuro: not oriented to place or time HEENT: NC/AT CV: RRR Resp: NC in nares, Breath sounds clear bilaterally, no increased effort of breathing Abdomen: Soft, nontender, nondistended Extremities: R outer thigh tender, No edema in lower extremities bilaterally. Results & Data Results & Data Vital Signs (Past 12 Hours) Vital Signs Temp Pulse Pulse Pulse Resp BP Pulse Ox 01/12/25 07:54 36.8 C 78 18 127/76 97 01/12/25 07:25 82 01/12/25 04:00 36.7 C 76 20 133/64 92 O2 Del Method O2 Flow Rate 01/12/25 07:54 Room Air 01/12/25 07:25 01/12/25 04:00 Nasal Cannula [address] 01/11/25 11:03 CT head/brain wo con CLINICAL HISTORY: 84 years-old Female with syncope. Acute syncope TECHNIQUE: Multiple axial CT images of the head were obtained without contrast. A dose lowering technique was utilized adhering to the principles of ALARA. CT DOSE: 625.8 mGy.cm COMPARISON: 09/14/2024 FINDINGS: No acute intracranial hemorrhage, midline shift, intracranial mass, hydrocephalus, territorial ischemia or abnormal extra-axial collection. Involutional changes with chronic microvascular ischemic disease. The calvarium is intact. The paranasal sinuses, mastoid air cells, and middle ear cavities are clear. IMPRESSION: No acute intracranial abnormality. ACT 112: Negative or not required by law. The above report was generated using voice recognition software. It may contain grammatical, syntax or spelling errors. Electronically signed by: Koko Villegas M.D. 01/11/2025 12:28 PM Abdomen/Pelvis CT 01/11/25 12:[address] WITH IV CONTRAST CT DOSE: 696.44 mGy.cm HISTORY: Acute generalized abdominal pain with diarrhea Diarrhea TECHNIQUE: Multiaxial CT images of the abdomen and pelvis were performed following the IV administration of 93 cc of Optiray, A dose lowering technique was utilized adhering to the principles of ALARA. COMPARISON STUDY: None. FINDINGS: Clear lung bases. No pneumatosis or pneumoperitoneum. Unremarkable spleen, pancreas and adrenal glands. Cholecystectomy is likely postsurgical mild biliary ductal dilation. Patent portal vein. Mild cortical thinning of the kidneys. No hydronephrosis. There is a wedge-shaped ill-defined focus of decreased enhancement/hypodensity within the posterior superior pole right kidney measuring 2.1 x 1.8 cm. The renal arteries and veins appear patent. Decompressed bladder with wall thickening. Calcified fundal uterine fibroid. Bilateral adnexal versus ovarian cysts measure up to 3.4 cm on the left and 2 cm on the right. Atherosclerosis of the aorta without aneurysm. No lymphadenopathy. Small hiatal hernia. Colonic diverticulosis without acute diverticulitis. Air- fluid levels noted within the right hemicolon. No bowel obstruction or bowel wall thickening. Normal appendix. Prior ventral abdominal wall hernia repair. Superior endplate compression deformity of less than 20% with fracture line noted involving the anterior aspect of the superior endplate at L2. No retropulsion or significant paravertebral edema. IMPRESSION: 1. No bowel obstruction or bowel wall thickening. 2. Colonic diverticulosis without acute diverticulitis. 3. Infarct of the superior pole right kidney measures 2 cm, likely acute versus subacute. 4. Mild acute to subacute appearing L2 superior endplate compression deformity without retropulsion. 5. Incidental findings as above. ACT 112: Negative or not required by law. The above report was generated using voice recognition software. It may contain grammatical, syntax or spelling errors. Electronically signed by: Koko Villegas M.D. 01/11/2025 1:25 PM Abdomen/Pelvis CTA 01/11/25 15:30 Clinical history: Renal infarct Technique: Axial computed tomography images were obtained of the abdomen and pelvis after the administration of intravenous contrast according to the CT angiogram protocol No prior examination is available for comparison Findings: The abdominal aorta appears unremarkable with no sign of aneurysm or dissection. No stenosis is seen involving it. The celiac axis and superior mesenteric artery are patent with no stenosis identified. The inferior mesenteric artery is patent as well. There is no sign of renal artery stenosis. The iliac arteries appear unremarkable with no sign of aneurysm or stenosis. The visualized common femoral arteries appear unremarkable as well The liver is overall of normal size, attenuation, and contour with no sign of cirrhosis or significant fatty infiltration. No liver mass lesion is seen. The portal vein is patent. The gallbladder has been removed. There is mild bile duct dilatation that is likely due to the postcholecystectomy state The spleen is of normal size. No focal splenic lesion is evident. The pancreas appears normal with no sign of acute or chronic pancreatitis and no mass lesion noted. The pancreatic duct is of normal caliber. The adrenal glands appear unremarkable. No definite renal or proximal ureteral calculi are seen on this contrast-enhanced study. There is no hydronephrosis or perinephric stranding. There is an approximately 1.6 cm low-attenuation area in the cortex of the upper right kidney that could represent an infarct No adenopathy is seen. There is a small hiatal hernia. There is no sign of small bowel obstruction. There is diverticulosis without definite diverticulitis. No free intraperitoneal fluid or air is identified. No distal ureteral or bladder calculi are seen. No bladder mass lesion is evident. There is a partially calcified uterine leiomyoma. There is a 3.3 cm left ovarian cyst and there is a 1.9 cm right ovarian cyst The lungs bases appear clear. There is an L2 compression fracture, likely old. There is lumbar scoliosis and degenerative disc disease. No focal osseous lesion is seen Impression: 1. Normal-appearing abdominal aorta 2. No sign of renal or mesenteric artery stenosis 3. No apparent stenosis of the pelvic arteries 4. Low-attenuation area in the upper right kidney that could represent an infarct. Focal pyelonephritis is a less likely possibility. A renal mass is much less likely. A follow-up renal protocol CT with and without contrast could be considered in 3 months 5. Diverticulosis without definite diverticulitis 6. Uterine leiomyoma 7. Bilateral ovarian cysts, indeterminate in nature in this postmenopausal patient. A pelvic ultrasound is recommended for further evaluation 8. Small hiatal hernia ACT 112: Positive. There are findings on this exam that require communication between the performing entity and the patient following Patient Test Result Information Act ([place] ACT 112) guidelines. Electronically signed by Felix Richard 01-11-2025 4:11 PM Chest CTA 01/11/25 16:49 EXAMINATION: CT angio chest with contrast CLINICAL HISTORY: Renal infarction PRIORS: None TECHNIQUE: Contiguous axial images were obtained through the chest with the use of intravenous contrast. Sagittal and coronal reformations are supplied. FINDINGS: Dental amalgam creates significant beam hardening artifact. Motion artifact degrades image quality. The pulmonary arteries are well opacified. A possible filling defect is present in the right lower lobe segmental pulmonary artery, image 89 through 91, series 4 and corresponding sagittal image 20, series 401. No additional filling defect in the pulmonary arteries identified. No CT features of heart strain. Mild cardiomegaly noted. No pleural or pericardial effusion. Nonpathologically enlarged lymph nodes present in the mediastinum. Trachea and mainstem bronchi patent. No airspace consolidation, pneumothorax or dominant mass. Trachea is tortuous. No acute abnormality in the upper abdomen. Moderate degenerative change of the thoracic spine. IMPRESSION: 1. A segmental right lower lobe pulmonary embolism is identified, allowing for significant motion and beam hardening artifact, with no CT features of heart strain. ACT 112: Positive. There are findings on this examination that require communication between the performing entity and the patient following Patient Test Result Information Act ([place] ACT 112) guidelines. Electronically signed by Mita Magana 01-11-2025 6:35 PM Hip/Pelvis X-Ray 01/12/25 10:47 XR hip RT 2V w pelvis CLINICAL HISTORY: R hip pain COMPARISON: None FINDINGS: Urinary bladder is distended with retained contrast. No fracture or dislocation seen. No significant degenerative change at the hips. SI joints are unremarkable. IMPRESSION: No acute findings. ACT 112: Negative or not required by law. Electronically signed by: Dev Adrian M.D. 01/12/2025 12:10 PM
--- NOTE | 2025-01-12 12:11 | XRay Report ---
XR hip RT 2V w pelvis CLINICAL HISTORY: R hip pain COMPARISON: None FINDINGS: Urinary bladder is distended with retained contrast. No fracture or dislocation seen. No s ignificant degenerative change at the hips. SI joints are unremarkable. IMPRESSION: No acute findings. ACT 112: Negative or not required by law. Electronically signed by: Dev Adrian M.D. 01/12/2025 12:10 PM
[2025-01-12 12:32] LABS: ANTI-Xa, UFH(UnfractionatedHep 0.88 IU/ml (0.3-0.7)
[2025-01-12] MEDS: ACETAMINOPHEN 1,000 MG/100 ML VIAL IV SCH (14:07)
[2025-01-12] MEDS: LIDOCAINE 5% 1 PATCH TD SCH (14:07)
--- NOTE | 2025-01-12 16:22 | Electrocardiogram Report ---
Test Reason : Blood Pressure : */* mmHG Vent. Rate : 80 BPM Atrial Rate : 80 BPM P-R Int : 148 ms QRS Dur : 72 ms QT Int : 392 ms P-R-T Axes : 49 -15 18 degrees QTcB Int : 452 ms Normal sinus rhythm Minimal voltage criteria for LVH, may be normal variant ( R in aVL ) Nonspecific ST abnormality Abnormal ECG When compared with ECG of 14-Sep-2024 17:25, No significant change was found Confirmed by Vincent Padron ([id number]) on 01/12/2025 4:22:34 PM Referred By: REFERRED SELF Confirmed By: Vincent Padron
[2025-01-12 17:19] LABS: Hematocrit (blood only) 38.5 % (37.0-47.0); Hemoglobin 12.2 g/dl (12.0-16.0)
[2025-01-12 20:38] LABS: ANTI-Xa, UFH(UnfractionatedHep 0.66 IU/ml (0.3-0.7)
--- NOTE | 2025-01-12 21:46 | Ultrasound Report ---
ULTRASOUND PELVIS INDICATION: Pelvic pain TECHNIQUE: Grayscale and color Doppler ultrasound of the pelvis was performed transabdominally. COMPARISON: CT abdomen pelvis 1 day previous FINDINGS: Uterus: Uterus measures 7.2 x 2.9 x 3.6 cm No abnormal thickening of the endometrium. There is a 3.1 x 1.9 x 3.1 cm area with calcifications in the uterine fundus. Right ovary: Measures 2.7 x 1.8 x 2.0 cm. Normal vascularity is noted. There is a 1.8 x 1.9 x 1.6 cm simple cyst. Left ovary: Measures 3.4 x 3.8 x 3.1 cm. Normal vascularity is noted. There is a 3.4 x 2.5 x 2.8 cm simple cyst. Free fluid: Trace free fluid is noted. Other: None. IMPRESSION: Bilateral ovarian cystic lesions appear to represent simple cysts in this examination. No evidence of ovarian torsion. Uterine fundal fibroid. Electronically signed by Kyle Wilson 01-12-2025 9:46 PM
[2025-01-13 05:49] LABS: Hematocrit (blood only) 32.6 % (37.0-47.0); Hemoglobin 10.6 g/dl (12.0-16.0); Mean Corpuscular Hemoglobin 30.8 pg (25.0-34.0); Mean Corpuscular Volume 94.8 fL (80.0-100.0); Platelet Count 191 K/uL (130-400); RDW Standard Deviation 49.2 fL (36.4-46.3); Red Blood Count 3.44 M/uL (4.20-5.40); White Blood Count 7.20 K/ul (4.8-10.8)
[2025-01-13 06:05] LABS: Alanine Aminotransferase 23.0 U/L (7-52); Albumin Globulin Ratio 1.2 (0.9-2); Alkaline Phosphatase 49.0 U/L (34-104); Anion Gap 7.0 (3-11); Bilirubin,Total 0.5 mg/dl (0.2-1.0); Blood Urea Nitrogen 8.0 mg/dl (6-23); Calcium 7.8 mg/dl (8.6-10.3); Carbon Dioxide 23.0 mmol/L (21-32); Chloride 109.0 mmol/L (98-107); Creatinine Clr Calc Pharmacy 60.6 ml/min; Globulin 2.4 gm/dl (2.5-4.0); Glucose 131.0 mg/dl (70-99(Fasting)); Magnesium 1.9 mg/dl (1.7-2.4); Potassium 3.3 mmol/L (3.5-5.1); Sodium 139.0 mmol/L (136-145); Total Protein 5.3 gm/dl (6.0-8.3)
[2025-01-13 06:34] LABS: ANTI-Xa, UFH(UnfractionatedHep 0.76 IU/ml (0.3-0.7)
[2025-01-13] MEDS: OPTIRAY 320 100ml IV ONE (09:10)
--- NOTE | 2025-01-13 09:21 | Palliative Care Consultation ---
Date of Consultation January 13, 2025 Assessment & Plan (1) Palliative care by specialist: Met with the pt's spouse Santos and two adult daughters in 2E waiting room. [facility] discussion was held from 10:30 - 11:35 Introduced Palliative Medicine and explained our role in advanced care planning, symptom management and navigation through the progression of life limiting disease. Patient and/or family were receptive to palliative services for goals of care discussions. Reviewed we are different from hospice, a home health nurse visiting service. (2) Encounter for assessment of decision-making capacity: Patient currently lacks decisional capacity based on the inability to convey understanding of personal PMHx, current medical condition, treatment options nor the risks / benefits/ potential outcomes of accepting/declining those options, a nd inability to make decisions based on such knowledge. Hospital does not have written documentation of patient wishes concerning her chosen proxy for medical decisions. Per PA [id number], in absence of written documentation of patient wishes, pt's proxy for medical decisions would be her spouse Santos Oropeza. Pt does currently require a proxy for medical decisions. (3) Advanced directives, counseling/discussion: discussed importance of Advanced directive as a tool to identify a proxy for medical decisions and guide family discussions about goals of care. Santos shared that the pt has an advanced directive from more than ten years ago. He shared that the document names him as primary HCPOA and the two daughters as back up. He could not recall what other wishe might have been documented on form. I requested that Santos bring a copy to hospital to be added to patient's chart. He agreed. I helped them understand that the pt does currently require a MDM proxy/HCPOA and that per PA [id number], in absence of written documentation of patient wishes, pt's proxy for medical decisions would be Santos. Santos is willing to serve as HCPOA, but expressed intent to make any decisions together with the input of their daughters. (4) Counseling regarding goals of care: Pt's spouse and daughters described pt as a strong and independent/stubborn minded woman who has worked hard to overcome any adversity in her life. They shared that the diagnosis of dementia was very hard for her and Santos to accept and they have taken every effort to delay/prevent progression as well as maintain her ability to communicate when faced with progressive aphasia. Gloria has lived at home with her spouse and been active with PT and speech therapy to "fight hard" against her dementia. Santos shared that Gloria has been experiencing a great deal of frustration with her difficulty expressing herself and has occasionally stated that she wants to give up. They shared that the pt can no longer safely prepared meals, do complex tasks, and is dependent for all iADLs but is still mostly independent with her ADLs including showering with just supervision for fear of falls. Gloria's daughters both shared concern that Santos may not understand or accept the progressive nature of dementia so we spent a substantial amount of time discussing the progressively debilitating nature of dementia. Explained that dementia is incurable and irreversible, and can include progressive/worsening memory loss, confusion, language difficulties/lack of comprehension skills/loss of verbal skills eventually, mood changes, impaired judgment, trouble with motor skills/coordination/balance issues, visual and spatial problems, hallucinations, and personality changes. The rate of progression in mixed dementia can vary widely from person to person. Factors such as the types of dementia involved, overall health, and genetics can influence the speed of progression. Some individuals experience a more gradual decline, while others may progress more rapidly through the stages. We discussed and differentiated dementia from delirium and helped family understand that they can co-exist. I reviewed Dementia is a terminal illness. Aggressive medical treatment for patients with advanced dementia is often inappropriate for medical reasons, has a low rate of success, and can have negative outcomes that hasten functional decline and . ([place] [employer] Ethics Committee and Clinical Practice and Models of Care Committee. J Am Geriatr Soc. 2014 Aug;62(8):1590-3 and Yoan SL, Mallory JM, Rodriges SC, Harsh V. A national study of the location of for older persons with dementia. J Am Geriatr Soc 2005; 53(2):299-305.). Helped them understand differences between dementia and delirium. Discussed typical progression of dementia and how it may be staged. Stage 1: Normal Functioning: In the early stage, individuals show no signs of dementia, and their cognitive function is normal Stage 2: Very Mild Cognitive Decline: Minor memory lapses and forgetfulness may occur but are often attributed to normal aging Stage 3: Mild Cognitive Decline: Early signs of dementia become more noticeable, such as memory problems and difficulty finding words Stage 4: Moderate Cognitive Decline: Memory loss becomes more pronounced, and individuals may struggle with tasks like managing finances and planning Stage 5: Moderately Severe Cognitive Decline: Daily functioning becomes challenging, and individuals may require assistance with tasks like dressing and bathing Stage 6: Severe Cognitive Decline: In this stage, individuals need substantial help with daily activities, and communication becomes increasingly difficult Stage 7: Very Severe Cognitive Decline: In the final stage, individuals may lose the ability to communicate, walk, and perform basic tasks. They require gkcmt-hmf-ligio care. Older adults with dementia frequently receive acute care in their last year of life although Hospice care was more common for home/USP residents. Overall time in hospice remains short due to the underutilization of the hospice benefit for terminal dementia (Marvin MM, Jefry JM, Ramos KM, Francisco DE, Abdi PY. Dementia Care in the Last Year of Life: Experiences in a Community Practice and in Care Home Facilities. J Palliat Care. 2022;38(2):135-142. doi:10.1177/[id number]) Home Hospice is a valuable option for terminal dementia who desire to have peaceful EOL at home. Home hospice care for advanced dementia can improve symptom management and caregiver satisfaction, while decreasing caregiver burden, preventing hospitalizations and discontinuing unnecessary medication (Maryan SA, Genesis R, Joshua G, et al. Home hospice for older people with advanced dementia: a area relief pilot project published correction appears in Isr J Health Policy Res. 2019 Jan 18;8(1):56. Isr J Health Policy Res. 2019;8(1):42. Published 2018November 23. doi:10.1186/[id number]-l). We discussed that the patient is currently in stage 5 but approaching stage 6 of her dementia. Pt's daughters both encouraged that Santos has been taking very good care of the pt at home, but suggest that perhaps it is time to consider SNF placement and question if it would be appropriate to involve hospice care at this time. Discussed that hospice care is adopted with transition to comfort directed care when life prolonging treatments are no longer sought. Santos shared that he does not believe "she is there yet". Discussed hospice benefit: an interdisciplinary program offered by nurses, nurses aides, social workers, chaplains and a medical laboratory assistant for patients with a terminal condition and a life expectancy of less than 6 months. This is covered by Medicare at 100%/no out of pocket expense to patient and all meds/supplies needed by patient for the reason they are on hospice are paid for/covered by hospice. The goal is assure quality of life of the patient in their home setting (home, long term, inpatient hospice setting) by providing symptoms management, psychosocial and spiritual support. However, they cannot offer 24 hours care and if the family is unable to provide that care, they will have to consider personal care with out of pocket cost vs. long term placement. We discussed the goals of hospice as a patient service and the goals of care; we discussed EOL trajectories and transitions jennifer the emotional impact of realizing mortality as a concrete reality from prior abstract considerations. Pt was reassured that no matter where they are along this trajectory, they are not alone - their medical team will remain by their side through their journey. Discussed the pros/cons of accepting help when especially weakened and distressed by pain-which would also help provide relief/decrease caregiver burden/strain. Discussed code status and helped family understand that CPR is only done after a person has and involves uncomfortable and invasive procedures that, if successful. have high risk of multiple complications including but not limited to rib fractures, pneumo/hemothorax, MADAI, ventilator dependence, anoxic brain injury, and poultry killer/permanent cognitive and functional deficits. CPR survival: Only about 10% of patients who have oof-kk-[id number] sudden cardiac arrest survive to hospital discharge, with many survivors having neurologic impairment. This rate is even lower among patients with serious coexisting conditions, ie chance of survival to hospital discharge for in- hospital CPR in older people is low to moderate (15%) and decreases with age, comorbidities, performance status and frailty: for pts > 70 yo, more than half of the patients who initially survived resuscitation in the hospital before hospital discharge. The pooled survival to discharge after in-hospital CPR was 18% for patients between 70 and 79 years old, 15% for patients between 80 and 89 years old and 11% for patients of 90 years and older. (Bud HEADY, Dante LJ, Q kishan F, et al. Trends in short- and long-term survival among rhr-[id number]-[id number] cardiac arrest patients alive at hospital arrival. Circulation 2014;130:1883- 1890. AND Sean C, Hugo T, Ernesto R, et al. Performance of clinical risk scores to predict mortality and neurological outcome in cardiac arrest patients. Resuscitation 2019;136:21-29.) Family all agree that pt would not wish to have resuscitation and request change to DNR/DNI status. Attending made aware. Plan DNR/DNI, continue all other life prolonging therapies. History of Present Illness Reason for Consultation: goals of care Requesting Physician: Lynda Medina MD Attending Physician: Lynda Medina MD History of Present Illness Mrs. Oropeza is a 84 year old female with PMH significant for dementia, primary progressive aphasia (expressive), peripheral artery disease, history of symptomatic PVCs, hypertension, GERD, PMR, osteoporosis, idiopathic peripheral neuropathy, history of Guillain-Saint Jo syndrome, IBS with diarrhea, and anxiety. Patient was brought to the ED three days ago for x3 episodes of diarrhea as her was concerned about dehydration. She was given fluids and discharged home. At home she continued to experience diarrhea as well as nausea. She subsequently was brought to ED 01/11/25 after a syncopal episode/GLF. Allergies Allergy/AdvReac Type Severity Reaction Status Date / Time amoxicillin Allergy Unknown HIVES, RASH Verified 12/07/24 13:39 Influenza Virus Vaccines Allergy Unknown cannot Verified 12/07/24 13:39 have d/t hx of guillian barre Home Medications Medication Instructions Recorded Confirmed Type ascorbic acid (vitamin C) 500 mg 500 mg PO QAM 02/22/22 01/11/25 History capsule cholecalciferol (vitamin D3) 25 25 mcg PO DAILY 02/22/22 01/11/25 History mcg (1,000 unit) capsule melatonin 5 mg capsule 5 mg PO HS PRN Sleep 02/22/22 01/11/25 History omeprazole 20 mg capsule,delayed 20 mg PO QAM 02/22/22 01/11/25 History release losartan 25 mg tablet 12.5 mg PO DAILY 06/02/22 01/11/25 History metoprolol succinate 25 mg PO BID 06/02/22 01/11/25 History donepezil 10 mg tablet 10 mg PO QAM 90 days #90 tabs 04/26/24 01/11/25 Rx celecoxib 100 mg capsule 100 mg PO DAILY 09/06/24 01/11/25 History divalproex 500 mg tablet,extended 500 mg PO DAILY #90 tabs 11/08/24 01/11/25 Rx release 24 hr sertraline 25 mg tablet 25 mg PO DAILY 12/07/24 01/11/25 History alendronate 70 mg tablet 70 mg PO QAM 01/11/25 01/11/25 History aspirin 81 mg capsule,delayed 81 mg PO DAILY 01/11/25 01/11/25 History release colestipol 1 gram tablet 1 g PO BID 01/11/25 01/11/25 History loratadine 10 mg tablet 10 mg PO DAILY PRN allergies 01/11/25 01/11/25 History memantine 5 mg tablet 5 mg PO BID 01/11/25 01/11/25 History levetiracetam 250 mg tablet 250 mg PO BID 90 days #180 tabs 01/12/25 Rx (Jimenez) Patient History Medical History (Updated 01/13/25 @ 13:59 by YONIS Bender) Vitamin D deficiency Confusion Seizure-like activity COVID-19 Depression Aphasia Stroke-like symptoms Memory loss Speech fluency problem 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 Encounter for annual routine gynecological examination History of allergy Laryngopharyngeal reflux Vocal cord paralysis Gastroenteritis due to COVID-19 virus COVID-19 Incisional hernia Surgical History S/P hemorrhoidectomy H/O tubal ligation S/P cholecystectomy laparoscopic with cholangiogram, 2014, Jenny H/O hernia repair laparoscopic, 10cm surgimesh, 05/2015, Jenny Family History (Updated 01/11/25 @ 16:39 by YONIS Hill) Mother Colorectal cancer Hypertension Grandmother Diabetes Father Hypertension Heart disease Denies family history of Ovarian cancer Breast cancer Social History (Updated 01/11/25 @ 16:39 by YONIS Hill) Smoking Status: Former smoker Second Hand Exposure: No; Do You Dip or Chew Tobacco: No; Tobacco Cessation Education Requested by Patient: No Hx Alcohol Use: No Hx Substance Use: No Preferred Language: Lao Communication Ability: Effective Communication Ability Comment: expressive aphasia [employer] Supervisor Required: No Beliefs That Will Affect Care: None marital status: Current Living Situation: Spouse Other Information That Helps Us Care for You: No Feels Safe at Home: Yes Safety Concerns: Feels Safe At This Time Dental Care, Regularly: Yes Seatbelt Use: always Sunscreen Use: Yes Assistive Devices: Cane Review of Systems Review of Systems: Unobtainable due to cognitive status Physical Exam Constitutional: well developed, + ill appearing, + thin and comfortable; no acute distress +expressive aphasia per baseline Eyes: PERRL, conjunctivae normal, anicteric sclerae ENMT: external ear and nose normal, oropharynx normal Neck: trachea midline, no thyromegaly Respiratory: normal respiratory effort, lungs clear to auscultation Cardiovascular: Rate/Rhythm: regular rate and regular rhythm Heart Sounds: normal S1 and normal S2 Gastrointestinal (Abdomen): normal bowel sounds, soft, nontender, no hepatosplenomegaly Skin: + turgor decreased and + pallor Neurologic: awake and + confused Speech / Cognition: + expressive aphasia Psychiatric: Orientation: alert Results & Data Vital Signs (Past 12 Hours) Vital Signs Temp Pulse Pulse Resp BP Pulse Ox O2 Del Method 01/13/25 07:55 36.5 C 70 16 118/71 98 Room Air 01/13/25 05:42 74 01/13/25 04:27 36.5 C 86 18 142/69 H 99 Nasal Cannula 01/12/25 23:50 36.7 C 81 18 119/67 96 Nasal Cannula 01/12/25 23:14 80 01/12/25 21:48 Nasal Cannula O2 Flow Rate 01/13/25 07:55 01/13/25 05:42 01/13/25 04:27 3 01/12/25 23:50 3 01/12/25 23:14 01/12/25 21:48 2 Laboratory Results Abnormal lab results 01/13/25 01/13/25 01/13/25 Range/Units 05:00 05:25 12:37 RBC 3.44 L (4.20-5.40) M/uL Hgb 10.6 L (12.0-16.0) g/dl Hct 32.6 L (37.0-47.0) % RDW Std Deviation 49.2 H (36.4-46.3) fL Heparin Anti-Xa, Unfract 0.76 H* 0.74 H* (0.3-0.7) IU/ml Potassium 3.3 L D (3.5-5.1) mmol/L Chloride 109 H (98-107) mmol/L Creatinine 0.54 L (0.6-1.2) mg/dl Glucose 131 H (70-99(Fasting)) mg/dl Calcium 7.8 L (8.6-10.3) mg/dl Total Protein 5.3 L D (6.0-8.3) gm/dl Albumin 2.9 L (3.4-5.0) gm/dl Globulin 2.4 L (2.5-4.0) gm/dl Diagnostic Findings Head CT 01/11/25 11:03 CT head/brain wo con CLINICAL HISTORY: 84 years-old Female with syncope. Acute syncope TECHNIQUE: Multiple axial CT images of the head were obtained without contrast. A dose lowering technique was utilized adhering to the principles of ALARA. CT DOSE: 625.8 mGy.cm COMPARISON: 09/14/2024 FINDINGS: No acute intracranial hemorrhage, midline shift, intracranial mass, hydrocephalus, territorial ischemia or abnormal extra-axial collection. Involutional changes with chronic microvascular ischemic disease. The calvarium is intact. The paranasal sinuses, mastoid air cells, and middle ear cavities are clear. IMPRESSION: No acute intracranial abnormality. ACT 112: Negative or not required by law. The above report was generated using voice recognition software. It may contain grammatical, syntax or spelling errors. Electronically signed by: Koko Villegas M.D. 01/11/2025 12:28 PM Abdomen/Pelvis CTA 01/11/25 15:30 Clinical history: Renal infarct Technique: Axial computed tomography images were obtained of the abdomen and pelvis after the administration of intravenous contrast according to the CT angiogram protocol No prior examination is available for comparison Findings: The abdominal aorta appears unremarkable with no sign of aneurysm or dissection. No stenosis is seen involving it. The celiac axis and superior mesenteric artery are patent with no stenosis identified. The inferior mesenteric artery is patent as well. There is no sign of renal artery stenosis. The iliac arteries appear unremarkable with no sign of aneurysm or stenosis. The visualized common femoral arteries appear unremarkable as well The liver is overall of normal size, attenuation, and contour with no sign of cirrhosis or significant fatty infiltration. No liver mass lesion is seen. The portal vein is patent. The gallbladder has been removed. There is mild bile duct dilatation that is likely due to the postcholecystectomy state The spleen is of normal size. No focal splenic lesion is evident. The pancreas appears normal with no sign of acute or chronic pancreatitis and no mass lesion noted. The pancreatic duct is of normal caliber. The adrenal glands appear unremarkable. No definite renal or proximal ureteral calculi are seen on this contrast-enhanced study. There is no hydronephrosis or perinephric stranding. There is an approximately 1.6 cm low-attenuation area in the cortex of the upper right kidney that could represent an infarct No adenopathy is seen. There is a small hiatal hernia. There is no sign of small bowel obstruction. There is diverticulosis without definite diverticulitis. No free intraperitoneal fluid or air is identified. No distal ureteral or bladder calculi are seen. No bladder mass lesion is evident. There is a partially calcified uterine leiomyoma. There is a 3.3 cm left ovarian cyst and there is a 1.9 cm right ovarian cyst The lungs bases appear clear. There is an L2 compression fracture, likely old. There is lumbar scoliosis and degenerative disc disease. No focal osseous lesion is seen Impression: 1. Normal-appearing abdominal aorta 2. No sign of renal or mesenteric artery stenosis 3. No apparent stenosis of the pelvic arteries 4. Low-attenuation area in the upper right kidney that could represent an infarct. Focal pyelonephritis is a less likely possibility. A renal mass is much less likely. A follow-up renal protocol CT with and without contrast could be considered in 3 months 5. Diverticulosis without definite diverticulitis 6. Uterine leiomyoma 7. Bilateral ovarian cysts, indeterminate in nature in this postmenopausal patient. A pelvic ultrasound is recommended for further evaluation 8. Small hiatal hernia ACT 112: Positive. There are findings on this exam that require communication between the performing entity and the patient following Patient Test Result Information Act ([place] ACT 112) guidelines. Electronically signed by Felix Richard 01-11-2025 4:11 PM Chest CTA 01/11/25 16:49 EXAMINATION: CT angio chest with contrast CLINICAL HISTORY: Renal infarction PRIORS: None TECHNIQUE: Contiguous axial images were obtained through the chest with the use of intravenous contrast. Sagittal and coronal reformations are supplied. FINDINGS: Dental amalgam creates significant beam hardening artifact. Motion artifact degrades image quality. The pulmonary arteries are well opacified. A possible filling defect is present in the right lower lobe segmental pulmonary artery, image 89 through 91, series 4 and corresponding sagittal image 20, series 401. No additional filling defect in the pulmonary arteries identified. No CT features of heart strain. Mild cardiomegaly noted. No pleural or pericardial effusion. Nonpathologically enlarged lymph nodes present in the mediastinum. Trachea and mainstem bronchi patent. No airspace consolidation, pneumothorax or dominant mass. Trachea is tortuous. No acute abnormality in the upper abdomen. Moderate degenerative change of the thoracic spine. IMPRESSION: 1. A segmental right lower lobe pulmonary embolism is identified, allowing for significant motion and beam hardening artifact, with no CT features of heart strain. ACT 112: Positive. There are findings on this examination that require communication between the performing entity and the patient following Patient Test Result Information Act ([place] ACT 112) guidelines. Electronically signed by Mita Magana 01-11-2025 6:35 PM Hip/Pelvis X-Ray 01/12/25 10:47 XR hip RT 2V w pelvis CLINICAL HISTORY: R hip pain COMPARISON: None FINDINGS: Urinary bladder is distended with retained contrast. No fracture or dislocation seen. No significant degenerative change at the hips. SI joints are unremarkable. IMPRESSION: No acute findings. ACT 112: Negative or not required by law. Electronically signed by: Dev Adrian M.D. 01/12/2025 12:10 PM Pelvis Ultrasound 01/12/25 15:21 ULTRASOUND PELVIS INDICATION: Pelvic pain TECHNIQUE: Grayscale and color Doppler ultrasound of the pelvis was performed transabdominally. COMPARISON: CT abdomen pelvis 1 day previous FINDINGS: Uterus: Uterus measures 7.2 x 2.9 x 3.6 cm No abnormal thickening of the endometrium. There is a 3.1 x 1.9 x 3.1 cm area with calcifications in the uterine fundus. Right ovary: Measures 2.7 x 1.8 x 2.0 cm. Normal vascularity is noted. There is a 1.8 x 1.9 x 1.6 cm simple cyst. Left ovary: Measures 3.4 x 3.8 x 3.1 cm. Normal vascularity is noted. There is a 3.4 x 2.5 x 2.8 cm simple cyst. Free fluid: Trace free fluid is noted. Other: None. IMPRESSION: Bilateral ovarian cystic lesions appear to represent simple cysts in this examination. No evidence of ovarian torsion. Uterine fundal fibroid. Electronically signed by Kyle Wilson 01-12-2025 9:46 PM Abdomen/Pelvis CT 01/13/25 07:[address] WITH IV CONTRAST CT DOSE: 665.57 mGy.cm HISTORY: butoock hematoma, hgb drop, r/o bleed TECHNIQUE: Multiaxial CT images of the abdomen and pelvis were performed following the IV administration of 90 cc of Optiray, A dose lowering technique was utilized adhering to the principles of ALARA. COMPARISON STUDY: 01/11/2025 FINDINGS: ABDOMEN: Gallbladder is surgically absent. Liver, spleen, pancreas, and adrenal glands are unremarkable. There is a stable small wedge-shaped area of nonenhancement posterior upper right kidney consistent with small right renal infarction. There is no hydronephrosis bilaterally. No abdominal aortic aneurysm. Pelvis: Urinary bladder is severely distended. Stable bilateral ovarian cysts, 3.5 cm on the left 2 cm on the right. Stable calcified uterine fibroid. There is sigmoid diverticulosis. No acute diverticulitis. No bowel inflammation or obstruction. No free fluid or free air. There is an interval layering hematoma posterior inferior right gluteal subcutaneous tissues measuring 8 x 7 cm axially by 6 cm craniocaudad. No vascular contrast extravasation seen to suggest ongoing hemorrhage. Osseous structures: There is a stable mild recent subacute appearing vertebral body compression fracture at the superior endplate of the L2 vertebral body. No new fractures seen in the visualized osseous structures. IMPRESSION: 1. Acute to recent subacute superficial hematoma at the right gluteal subcutaneous soft tissues. 2. Otherwise as described. ACT 112: Negative or not required by law. The above report was generated using voice recognition software. It may contain grammatical, syntax or spelling errors. Electronically signed by: Dev Adrian M.D. 01/13/2025 9:38 AM Medications Administered Current Inpatient Medications Acetaminophen (Acetaminophen 325 Mg Tab) 650 mg PO Q4H PRN PRN Reason: pain/fever Stop: 02/10/25 20:16 Last Admin: 01/12/25 08:10 Dose: 650 mg Ascorbic Acid (Ascorbic Acid 500 Mg Tab) 500 mg PO QAM [facility] Stop: 02/11/25 08:59 Last Admin: 01/13/25 10:04 Dose: 500 mg Aspirin (Aspirin 81 Mg Ectab) 81 mg PO DAILY [facility] Stop: 02/11/25 08:59 Last Admin: 01/13/25 10:04 Dose: 81 mg Colestipol HCl (Colestipol Hcl 1 Gm Tab) 1 gm PO BID [facility] Stop: 02/10/25 20:59 Last Admin: 01/13/25 10:03 Dose: 1 gm Divalproex Sodium (Divalproex Extended Release 500 Mg Tab) 500 mg PO DAILY [facility] Stop: 02/11/25 08:59 Last Admin: 01/13/25 10:04 Dose: 500 mg Donepezil HCl (Donepezil Hcl 10 Mg Tab) 10 mg PO QAM [facility] Stop: 02/11/25 08:59 Last Admin: 01/13/25 10:03 Dose: 10 mg Heparin Sodium/Dextrose (Heparin 99441 Unit/500 Ml D5w) 25,000 units in 500 mls @ 14 mls/hr IV .Q24H [facility]; Protocol Stop: 02/10/25 17:44 Last Titration: 01/13/25 13:35 Dose: 700 units/hr, 14 mls/hr Acetaminophen (Ofirmev) 1,000 mg in 100 mls @ 400 mls/hr IV Q8H [facility] Stop: 01/15/25 12:59 Last Admin: 01/13/25 13:46 Dose: 400 mls/hr Levetiracetam (Levetiracetam 250 Mg Tab) 250 mg PO BID [facility] Stop: 02/10/25 20:59 Last Admin: 01/13/25 10:05 Dose: 250 mg Lidocaine (Lidocaine 5% 1 Patch) 1 patch TD QAM [facility] Stop: 02/11/25 12:44 Last Admin: 01/13/25 10:07 Dose: 1 patch Loratadine (Loratadine 10 Mg Tab) 10 mg PO DAILY PRN PRN Reason: allergies Stop: 02/10/25 20:58 Melatonin (Melatonin 3 Mg Tab) 6 mg PO HS PRN PRN Reason: Sleep Stop: 02/10/25 20:21 Last Admin: 01/13/25 03:41 Dose: 6 mg Memantine (Memantine Hcl 5 Mg Tab) 5 mg PO BID [facility] Stop: 02/10/25 20:59 Last Admin: 01/13/25 10:03 Dose: 5 mg Metoprolol Succinate (Metoprolol Succ 25mg Ext Rel Tab) 25 mg PO BID [facility] Stop: 02/10/25 20:59 Last Admin: 01/13/25 10:03 Dose: 25 mg Miscellaneous (Remove Lidoderm Patch) 1 each N/A DAILY@0700 [facility] Stop: 02/11/25 06:59 Last Admin: 01/13/25 06:30 Dose: 1 each Miscellaneous (Remove Lidoderm Patch) 1 each N/A DAILY@2100 [facility] Stop: 02/11/25 20:59 Last Admin: 01/12/25 21:53 Dose: 1 each Ondansetron HCl (Ondansetron Inj 2 Mg/Ml 2 Ml Vial) 4 mg IV Q6H PRN PRN Reason: Nausea Stop: 02/10/25 20:16 Oxycodone HCl (Oxycodone Hcl Ir 5 Mg Tab (Immediate Release)) 5 mg PO Q8H PRN PRN Reason: Severe Pain (Scale 7, 8, 9,10) Stop: 01/26/25 12:45 Last Admin: 01/13/25 03:42 Dose: 5 mg Pantoprazole Sodium (Pantoprazole 40 Mg Tab) 40 mg PO QAM [facility] Stop: 02/11/25 08:59 Last Admin: 01/13/25 10:04 Dose: 40 mg Sertraline HCl (Sertraline Hcl 50 Mg Tablet) 25 mg PO DAILY [facility] Stop: 02/11/25 08:59 Last Admin: 01/13/25 10:05 Dose: 25 mg Vitamin D (Cholecalciferol 25 Mcg (1000 Units) Tab) 25 mcg PO DAILY [facility] Stop: 02/11/25 08:59 Last Admin: 01/13/25 10:03 Dose: 25 mcg PG Care Time/CCT Total # of Minutes Spent Total Time Spent with Patient: Total time spent is greater than 50% in coordination of care (as documented) at patient's floor/unit and/or counseling patient: Advanced Care Planning 09857 Advanced Care Planning 30 Min 51728 Advanced Care Planning Additional 30 [place] [address] IN/OBS CONSULT LVL 3,45M Patient Type New History Expanded Problem Focused Exam Expanded Problem Focused Medical Decision Making Low Complexity Diagnoses Palliative care by specialist Z51.5 Encounter for assessment of decision-making capacity Z00.8 Advanced directives, counseling/discussion Z71.89 Counseling regarding goals of care Z71.89 Additional Codes Advanced Care Planning - 63734 Advanced Care Planning 30 Min: 60866 Advanced Care Planning 30 Min ([id number]) Advanced Care Planning - 42791 Advanced Care Planning Additional 30 Min: 41100 Advanced Care Planning Additional 30 Min ([id number])
--- NOTE | 2025-01-13 09:40 | CT Scan Report ---
ABDOMEN AND PELVIS CT WITH IV CONTRAST CT DOSE: 665.57 mGy.cm HISTORY: butoock hematoma, hgb drop, r/o bleed TECHNIQUE: Multiaxial CT images of the abdomen and pelvis were performed following the IV administrat ion of 90 cc of Optiray, A dose lowering technique was utilized adhering to the principles of ALARA. COMPARISON STUDY: 01/11/2025 FINDINGS: ABDOMEN: Gallbladder is surgically absent. Liver, spleen, pancreas, and adrenal glands are unremarkab le. There is a stable small wedge-shaped area of nonenhancement posterior upper right kidney consiste nt with small right renal infarction. There is no hydronephrosis bilaterally. No abdominal aortic ane urysm. Pelvis: Urinary bladder is severely distended. Stable bilateral ovarian cysts, 3.5 cm on the left 2 c m on the right. Stable calcified uterine fibroid. There is sigmoid diverticulosis. No acute diverticu litis. No bowel inflammation or obstruction. No free fluid or free air. There is an interval layering hematoma posterior inferior right gluteal subcutaneous tissues measurin g 8 x 7 cm axially by 6 cm craniocaudad. No vascular contrast extravasation seen to suggest ongoing h emorrhage. Osseous structures: There is a stable mild recent subacute appearing vertebral body compression fract ure at the superior endplate of the L2 vertebral body. No new fractures seen in the visualized osseou s structures. IMPRESSION: 1. Acute to recent subacute superficial hematoma at the right gluteal subcutaneous soft tissues. 2. Otherwise as described. ACT 112: Negative or not required by law. The above report was generated using voice recognition software. It may contain grammatical, syntax o r spelling errors. Electronically signed by: Dev Adrian M.D. 01/13/2025 9:38 AM
[2025-01-13] MEDS: POTASSIUM CHLORIDE CRTAB 20 MEQ TABCR PO STA (10:01)
[2025-01-13 13:19] LABS: ANTI-Xa, UFH(UnfractionatedHep 0.74 IU/ml (0.3-0.7)
--- NOTE | 2025-01-13 13:38 | Hospitalist Progress Note ---
Date of Service January 13, 2025 Assessment & Plan (1) Syncope: (2) Infarction of kidney: (3) Diarrhea: (4) Myoclonus: (5) Dementia: (6) Primary progressive aphasia: (7) HTN (hypertension): (8) Anxiety: Plan 84 year old female with PMH significant for dementia, primary progressive aphasia, myoclonus, peripheral artery disease, history of symptomatic PVCs, hypertension, GERD, PMR, osteoporosis, idiopathic peripheral neuropathy, history of Guillain-Winchester syndrome, IBS with diarrhea, and anxiety who presented to the ED on 01/11/2025 after having a syncopal episode at home. 01/13- Hgb with noted drop from 15 to 10 today. Extensive discussion with pts 2 daughters and about GOC and her wishes given the large hematoma and need for IV heparin for PEs. Agreeable to Palliative Care consult, CT abd/pelvis repeated with no indication for current bleed. Family would like DNR/DNI code status and to continue with the IV heparin currently. Would like her to go to SNF/rehab She is currently being treated as follows: Syncope Likely due to dehydration/diarrhea EKG NSR Head CT negative Labs and UA unremarkable Orthostatic vitals pending PT/OT consults- recommending acute rehab on dc Renal infarct Pulmonary Emboli CT abdomen and pelvis revealed infarct of superior pole right kidney measuring 2cm CTA abdomen and pelvis revealed low attenuation area in upper right kidney that could represent an infarct; normal abdominal aorta, no renal artery stenosis, no pelvic artery stenosis CTA chest noting pulmonary Emboli Echo with small patent foramen ovale Hypercoagulable labs pending A1C and lipid panel normal Admitting team discussed with Dr Dmitriy Rivera from [facility] who recommended echo and CTA chest to evaluate for thrombus and noted patient will need lifelong anticoagulation Heparin drip started Monitor H/H- drop to 10 today Buttock Hematoma Hgb drop to 10 from [address] abd/pelvis repeated stat on 01/13, noted the following: "interval layering hematoma posterior inferior right gluteal subcutaneous tissues measuring 8 x 7 cm axially by 6 cm craniocaudad. No vascular contrast extravasation seen to suggest ongoing hemorrhage." Extensive discussion with family given PE and need for anticoagulation- would like to continue with IV heparin. Continue to closely monitor the H/H Abnormal CT scan findings Calcified Uterine leiomyoma with noted bilateral ovarian cysts that measure up to 3.4cm on the left and 2cm on the right - recommended pelvic ultrasound which confirmed ovarian cysts. Atherosclerosis of aorta without aneurysm- will need PCP followup as an outpt Small hiatal hernia-monitor for any feeding issues L2 superior endplate compression deformity without retropulsion - recommend follow up with orthospine, pain control prn IBS with diarrhea Follows with [facility] GI last seen 01/05/2025 Continue colestipol Avoid Imodium per GI Stool studies pending collection (c diff and stool Pcr) Consider GI consult if no improvement for possible imaging Hypertension Continue losartan History of PVCs Continue metoprolol Dementia Myoclonus Follows with [facility] last seen 12/07/2024 Continue memantine and donepezil Continue keppra and divalproex PMR Follows with [facility] Rheumatology last seen 12/10/2024 GERD Continue omeprazole DVT Prophylaxis: Heparin drip Code Status: FULL CODE - As per discussion at bedside with the patient. PCP: Dr Kris Gutierrez Dispo: acute rehab once medically stable Admission and Anticipated Discharge Date Admission Date: January 11, 2025 Subjective Pt was seen in the AM with her 2 daughters and at bedside Extensive discussion about GOC and her wishes given the hematoma and need for IV heparin Agreeable to Palliative Care consult, CT abd/pelvis repeated Noted hgb drop to 10 today Review of Systems Review of Systems: All systems reviewed & are unremarkable except as noted in Subjective Physical Exam Physical Exam: General: Alert, not oriented to place or time No acute distress Skin: purplish bruise on R buttock cheek Psych: Appropriate mood and affect Neuro: not oriented to place or time HEENT: NC/AT CV: RRR Resp: NC in nares, Breath sounds clear bilaterally, no increased effort of breathing Abdomen: Soft, nontender, nondistended Extremities: R outer thigh tender, No edema in lower extremities bilaterally. Results & Data Results & Data Vital Signs (Past 12 Hours) Vital Signs Temp Pulse Pulse Resp BP Pulse Ox O2 Del Method 01/13/25 10:28 Nasal Cannula 01/13/25 07:55 36.5 C 70 16 118/71 98 Room Air 01/13/25 05:42 74 01/13/25 04:27 36.5 C 86 18 142/69 H 99 Nasal Cannula O2 Flow Rate 01/13/25 10:28 3 01/13/25 07:55 01/13/25 05:42 01/13/25 04:27 [address] 01/11/25 11:03 CT head/brain wo con CLINICAL HISTORY: 84 years-old Female with syncope. Acute syncope TECHNIQUE: Multiple axial CT images of the head were obtained without contrast. A dose lowering technique was utilized adhering to the principles of ALARA. CT DOSE: 625.8 mGy.cm COMPARISON: 09/14/2024 FINDINGS: No acute intracranial hemorrhage, midline shift, intracranial mass, hydrocephalus, territorial ischemia or abnormal extra-axial collection. Involutional changes with chronic microvascular ischemic disease. The calvarium is intact. The paranasal sinuses, mastoid air cells, and middle ear cavities are clear. IMPRESSION: No acute intracranial abnormality. ACT 112: Negative or not required by law. The above report was generated using voice recognition software. It may contain grammatical, syntax or spelling errors. Electronically signed by: Koko Villegas M.D. 01/11/2025 12:28 PM Abdomen/Pelvis CT 01/11/25 12:[address] WITH IV CONTRAST CT DOSE: 696.44 mGy.cm HISTORY: Acute generalized abdominal pain with diarrhea Diarrhea TECHNIQUE: Multiaxial CT images of the abdomen and pelvis were performed following the IV administration of 93 cc of Optiray, A dose lowering technique was utilized adhering to the principles of ALARA. COMPARISON STUDY: None. FINDINGS: Clear lung bases. No pneumatosis or pneumoperitoneum. Unremarkable spleen, pancreas and adrenal glands. Cholecystectomy is likely postsurgical mild biliary ductal dilation. Patent portal vein. Mild cortical thinning of the kidneys. No hydronephrosis. There is a wedge-shaped ill-defined focus of decreased enhancement/hypodensity within the posterior superior pole right kidney measuring 2.1 x 1.8 cm. The renal arteries and veins appear patent. Decompressed bladder with wall thickening. Calcified fundal uterine fibroid. Bilateral adnexal versus ovarian cysts measure up to 3.4 cm on the left and 2 cm on the right. Atherosclerosis of the aorta without aneurysm. No lymphadenopathy. Small hiatal hernia. Colonic diverticulosis without acute diverticulitis. Air- fluid levels noted within the right hemicolon. No bowel obstruction or bowel wall thickening. Normal appendix. Prior ventral abdominal wall hernia repair. Superior endplate compression deformity of less than 20% with fracture line noted involving the anterior aspect of the superior endplate at L2. No retropulsion or significant paravertebral edema. IMPRESSION: 1. No bowel obstruction or bowel wall thickening. 2. Colonic diverticulosis without acute diverticulitis. 3. Infarct of the superior pole right kidney measures 2 cm, likely acute versus subacute. 4. Mild acute to subacute appearing L2 superior endplate compression deformity without retropulsion. 5. Incidental findings as above. ACT 112: Negative or not required by law. The above report was generated using voice recognition software. It may contain grammatical, syntax or spelling errors. Electronically signed by: Koko Villegas M.D. 01/11/2025 1:25 PM Abdomen/Pelvis CTA 01/11/25 15:30 Clinical history: Renal infarct Technique: Axial computed tomography images were obtained of the abdomen and pelvis after the administration of intravenous contrast according to the CT angiogram protocol No prior examination is available for comparison Findings: The abdominal aorta appears unremarkable with no sign of aneurysm or dissection. No stenosis is seen involving it. The celiac axis and superior mesenteric artery are patent with no stenosis identified. The inferior mesenteric artery is patent as well. There is no sign of renal artery stenosis. The iliac arteries appear unremarkable with no sign of aneurysm or stenosis. The visualized common femoral arteries appear unremarkable as well The liver is overall of normal size, attenuation, and contour with no sign of cirrhosis or significant fatty infiltration. No liver mass lesion is seen. The portal vein is patent. The gallbladder has been removed. There is mild bile duct dilatation that is likely due to the postcholecystectomy state The spleen is of normal size. No focal splenic lesion is evident. The pancreas appears normal with no sign of acute or chronic pancreatitis and no mass lesion noted. The pancreatic duct is of normal caliber. The adrenal glands appear unremarkable. No definite renal or proximal ureteral calculi are seen on this contrast-enhanced study. There is no hydronephrosis or perinephric stranding. There is an approximately 1.6 cm low-attenuation area in the cortex of the upper right kidney that could represent an infarct No adenopathy is seen. There is a small hiatal hernia. There is no sign of small bowel obstruction. There is diverticulosis without definite diverticulitis. No free intraperitoneal fluid or air is identified. No distal ureteral or bladder calculi are seen. No bladder mass lesion is evident. There is a partially calcified uterine leiomyoma. There is a 3.3 cm left ovarian cyst and there is a 1.9 cm right ovarian cyst The lungs bases appear clear. There is an L2 compression fracture, likely old. There is lumbar scoliosis and degenerative disc disease. No focal osseous lesion is seen Impression: 1. Normal-appearing abdominal aorta 2. No sign of renal or mesenteric artery stenosis 3. No apparent stenosis of the pelvic arteries 4. Low-attenuation area in the upper right kidney that could represent an infarct. Focal pyelonephritis is a less likely possibility. A renal mass is much less likely. A follow-up renal protocol CT with and without contrast could be considered in 3 months 5. Diverticulosis without definite diverticulitis 6. Uterine leiomyoma 7. Bilateral ovarian cysts, indeterminate in nature in this postmenopausal patient. A pelvic ultrasound is recommended for further evaluation 8. Small hiatal hernia ACT 112: Positive. There are findings on this exam that require communication between the performing entity and the patient following Patient Test Result Information Act ([place] ACT 112) guidelines. Electronically signed by Felix Richard 01-11-2025 4:11 PM Chest CTA 01/11/25 16:49 EXAMINATION: CT angio chest with contrast CLINICAL HISTORY: Renal infarction PRIORS: None TECHNIQUE: Contiguous axial images were obtained through the chest with the use of intravenous contrast. Sagittal and coronal reformations are supplied. FINDINGS: Dental amalgam creates significant beam hardening artifact. Motion artifact degrades image quality. The pulmonary arteries are well opacified. A possible filling defect is present in the right lower lobe segmental pulmonary artery, image 89 through 91, series 4 and corresponding sagittal image 20, series 401. No additional filling defect in the pulmonary arteries identified. No CT features of heart strain. Mild cardiomegaly noted. No pleural or pericardial effusion. Nonpathologically enlarged lymph nodes present in the mediastinum. Trachea and mainstem bronchi patent. No airspace consolidation, pneumothorax or dominant mass. Trachea is tortuous. No acute abnormality in the upper abdomen. Moderate degenerative change of the thoracic spine. IMPRESSION: 1. A segmental right lower lobe pulmonary embolism is identified, allowing for significant motion and beam hardening artifact, with no CT features of heart strain. ACT 112: Positive. There are findings on this examination that require communication between the performing entity and the patient following Patient Test Result Information Act ([place] ACT 112) guidelines. Electronically signed by Mita Magana 01-11-2025 6:35 PM Hip/Pelvis X-Ray 01/12/25 10:47 XR hip RT 2V w pelvis CLINICAL HISTORY: R hip pain COMPARISON: None FINDINGS: Urinary bladder is distended with retained contrast. No fracture or dislocation seen. No significant degenerative change at the hips. SI joints are unremarkable. IMPRESSION: No acute findings. ACT 112: Negative or not required by law. Electronically signed by: Dev Adrian M.D. 01/12/2025 12:10 PM Pelvis Ultrasound 01/12/25 15:21 ULTRASOUND PELVIS INDICATION: Pelvic pain TECHNIQUE: Grayscale and color Doppler ultrasound of the pelvis was performed transabdominally. COMPARISON: CT abdomen pelvis 1 day previous FINDINGS: Uterus: Uterus measures 7.2 x 2.9 x 3.6 cm No abnormal thickening of the endometrium. There is a 3.1 x 1.9 x 3.1 cm area with calcifications in the uterine fundus. Right ovary: Measures 2.7 x 1.8 x 2.0 cm. Normal vascularity is noted. There is a 1.8 x 1.9 x 1.6 cm simple cyst. Left ovary: Measures 3.4 x 3.8 x 3.1 cm. Normal vascularity is noted. There is a 3.4 x 2.5 x 2.8 cm simple cyst. Free fluid: Trace free fluid is noted. Other: None. IMPRESSION: Bilateral ovarian cystic lesions appear to represent simple cysts in this examination. No evidence of ovarian torsion. Uterine fundal fibroid. Electronically signed by Kyle Wilson 01-12-2025 9:46 PM Abdomen/Pelvis CT 01/13/25 07:[address] WITH IV CONTRAST CT DOSE: 665.57 mGy.cm HISTORY: butoock hematoma, hgb drop, r/o bleed TECHNIQUE: Multiaxial CT images of the abdomen and pelvis were performed following the IV administration of 90 cc of Optiray, A dose lowering technique was utilized adhering to the principles of ALARA. COMPARISON STUDY: 01/11/2025 FINDINGS: ABDOMEN: Gallbladder is surgically absent. Liver, spleen, pancreas, and adrenal glands are unremarkable. There is a stable small wedge-shaped area of nonenhancement posterior upper right kidney consistent with small right renal infarction. There is no hydronephrosis bilaterally. No abdominal aortic aneurysm. Pelvis: Urinary bladder is severely distended. Stable bilateral ovarian cysts, 3.5 cm on the left 2 cm on the right. Stable calcified uterine fibroid. There is sigmoid diverticulosis. No acute diverticulitis. No bowel inflammation or obstruction. No free fluid or free air. There is an interval layering hematoma posterior inferior right gluteal subcutaneous tissues measuring 8 x 7 cm axially by 6 cm craniocaudad. No vascular contrast extravasation seen to suggest ongoing hemorrhage. Osseous structures: There is a stable mild recent subacute appearing vertebral body compression fracture at the superior endplate of the L2 vertebral body. No new fractures seen in the visualized osseous structures. IMPRESSION: 1. Acute to recent subacute superficial hematoma at the right gluteal subcutaneous soft tissues. 2. Otherwise as described. ACT 112: Negative or not required by law. The above report was generated using voice recognition software. It may contain grammatical, syntax or spelling errors. Electronically signed by: Dev Adrian M.D. 01/13/2025 9:38 AM
[2025-01-13 20:01] LABS: ANTI-Xa, UFH(UnfractionatedHep 0.62 IU/ml (0.3-0.7)
[2025-01-14 07:41] LABS: Hematocrit (blood only) 31.4 % (37.0-47.0); Hemoglobin 10.1 g/dl (12.0-16.0); Immature Granulocytes # (auto) 0.15 K/uL (0.01-0.20); Immature Granulocytes % (auto) 1.9 %; Mean Corpuscular Hemoglobin 31.1 pg (25.0-34.0); Mean Corpuscular Volume 96.6 fL (80.0-100.0); Platelet Count 224 K/uL (130-400); RDW Standard Deviation 51.1 fL (36.4-46.3); Red Blood Count 3.25 M/uL (4.20-5.40); White Blood Count 7.75 K/ul (4.8-10.8)
[2025-01-14 08:03] LABS: Alanine Aminotransferase 18.0 U/L (7-52); Albumin Globulin Ratio 1.5 (0.9-2); Alkaline Phosphatase 52.0 U/L (34-104); Anion Gap 6.0 (3-11); Bilirubin,Total 0.4 mg/dl (0.2-1.0); Blood Urea Nitrogen 18.0 mg/dl (6-23); Calcium 8.1 mg/dl (8.6-10.3); Carbon Dioxide 23.0 mmol/L (21-32); Chloride 108.0 mmol/L (98-107); Creatinine Clr Calc Pharmacy 48.1 ml/min; Globulin 2.1 gm/dl (2.5-4.0); Glucose 94.0 mg/dl (70-99(Fasting)); Magnesium 1.8 mg/dl (1.7-2.4); Potassium 3.8 mmol/L (3.5-5.1); Sodium 137.0 mmol/L (136-145); Total Protein 5.2 gm/dl (6.0-8.3)
[2025-01-14 08:10] LABS: ANTI-Xa, UFH(UnfractionatedHep 0.59 IU/ml (0.3-0.7)
[2025-01-14] MEDS: LORATADINE 10 MG TAB PO PRN (10:15)
--- NOTE | 2025-01-14 14:00 | Hospitalist Progress Note ---
Date of Service January 14, 2025 Assessment & Plan (1) Syncope: (2) Infarction of kidney: (3) Diarrhea: (4) Myoclonus: (5) Dementia: (6) Primary progressive aphasia: (7) HTN (hypertension): (8) Anxiety: Plan 84 year old female with PMH significant for dementia, primary progressive aphasia, myoclonus, peripheral artery disease, history of symptomatic PVCs, hypertension, GERD, PMR, osteoporosis, idiopathic peripheral neuropathy, history of Guillain-Windham syndrome, IBS with diarrhea, and anxiety who presented to the ED on 01/11/2025 after having a syncopal episode at home. 01/13- Hgb with noted drop from 15 to 10 today. Extensive discussion with pts 2 daughters and about GOC and her wishes given the large hematoma and need for IV heparin for PEs. Agreeable to Palliative Care consult, CT abd/pelvis repeated with no indication for current bleed. Family would like DNR/DNI code status and to continue with the IV heparin currently. Would like her to go to SNF/rehab She is currently being treated as follows: Syncope Likely due to dehydration/diarrhea EKG NSR Head CT negative Labs and UA unremarkable Orthostatic vitals PT/OT consults- recommending acute rehab on dc Renal infarct Pulmonary Emboli CT abdomen and pelvis revealed infarct of superior pole right kidney measuring 2cm CTA abdomen and pelvis revealed low attenuation area in upper right kidney that could represent an infarct; normal abdominal aorta, no renal artery stenosis, no pelvic artery stenosis CTA chest noting pulmonary Emboli Echo with small patent foramen ovale Hypercoagulable labs pending A1C and lipid panel normal Admitting team discussed with Dr Dmitriy Rivera from [facility] who recommended echo and CTA chest to evaluate for thrombus and noted patient will need lifelong anticoagulation Heparin drip started Monitor H/H- drop to 10 today, stable Will transition to po anticoagulation if hgb remains stable Buttock Hematoma Hgb drop to 10 from [address] abd/pelvis repeated stat on 01/13, noted the following: "interval layering hematoma posterior inferior right gluteal subcutaneous tissues measuring 8 x 7 cm axially by 6 cm craniocaudad. No vascular contrast extravasation seen to suggest ongoing hemorrhage." Extensive discussion with family given PE and need for anticoagulation- would like to continue with IV heparin. Continue to closely monitor the H/H Abnormal CT scan findings Calcified Uterine leiomyoma with noted bilateral ovarian cysts that measure up to 3.4cm on the left and 2cm on the right - recommended pelvic ultrasound which confirmed ovarian cysts. Atherosclerosis of aorta without aneurysm- will need PCP followup as an outpt Small hiatal hernia-monitor for any feeding issues L2 superior endplate compression deformity without retropulsion - recommend follow up with orthospine, pain control prn IBS with diarrhea Follows with [facility] GI last seen 01/05/2025 Continue colestipol Avoid Imodium per GI Stool studies pending collection (c diff and stool Pcr) Consider GI consult if no improvement for possible imaging Hypertension Continue losartan History of PVCs Continue metoprolol Dementia Myoclonus Follows with [facility] last seen 12/07/2024 Continue memantine and donepezil Continue keppra and divalproex PMR Follows with [facility] Rheumatology last seen 12/10/2024 GERD Continue omeprazole DVT Prophylaxis: Heparin drip Code Status: FULL CODE - As per discussion at bedside with the patient. PCP: Dr Kris Gutierrez Dispo: acute rehab once medically stable Admission and Anticipated Discharge Date Admission Date: January 11, 2025 Subjective Pt was seen in the AM, no family at bedside Stated that she was having less pain in the right hip Noting she got cleaned up today and it felt great Review of Systems Review of Systems: All systems reviewed & are unremarkable except as noted in Subjective Physical Exam Physical Exam: General: Alert, not oriented to place or time No acute distress Skin: purplish bruise on R buttock cheek, firm Psych: Appropriate mood and affect Neuro: not oriented to place or time HEENT: NC/AT CV: RRR Resp: NC in nares, Breath sounds clear bilaterally, no increased effort of breathing Abdomen: Soft, nontender, nondistended Extremities: R outer thigh tender, No edema in lower extremities bilaterally. Results & Data Results & Data Vital Signs (Past 12 Hours) Vital Signs Temp Pulse Pulse Resp BP BP Pulse Ox 01/14/25 13:05 01/14/25 11:18 36.5 C 62 17 102/53 L 99 01/14/25 07:55 36.8 C 63 17 115/73 98 01/14/25 05:37 63 01/14/25 03:52 36.4 C L 71 20 146/66 H 97 O2 Del Method O2 Flow Rate 01/14/25 13:05 Nasal Cannula 3 01/14/25 11:18 Nasal Cannula 3 01/14/25 07:55 Nasal Cannula 3 01/14/25 05:37 01/14/25 03:52 Room Air Diagnostic Findings Head CT 01/11/25 11:03 CT head/brain wo con CLINICAL HISTORY: 84 years-old Female with syncope. Acute syncope TECHNIQUE: Multiple axial CT images of the head were obtained without contrast. A dose lowering technique was utilized adhering to the principles of ALARA. CT DOSE: 625.8 mGy.cm COMPARISON: 09/14/2024 FINDINGS: No acute intracranial hemorrhage, midline shift, intracranial mass, hydrocephalus, territorial ischemia or abnormal extra-axial collection. Involutional changes with chronic microvascular ischemic disease. The calvarium is intact. The paranasal sinuses, mastoid air cells, and middle ear cavities are clear. IMPRESSION: No acute intracranial abnormality. ACT 112: Negative or not required by law. The above report was generated using voice recognition software. It may contain grammatical, syntax or spelling errors. Electronically signed by: Koko Villegas M.D. 01/11/2025 12:28 PM Abdomen/Pelvis CT 01/11/25 12:[address] WITH IV CONTRAST CT DOSE: 696.44 mGy.cm HISTORY: Acute generalized abdominal pain with diarrhea Diarrhea TECHNIQUE: Multiaxial CT images of the abdomen and pelvis were performed following the IV administration of 93 cc of Optiray, A dose lowering technique was utilized adhering to the principles of ALARA. COMPARISON STUDY: None. FINDINGS: Clear lung bases. No pneumatosis or pneumoperitoneum. Unremarkable spleen, pancreas and adrenal glands. Cholecystectomy is likely postsurgical mild biliary ductal dilation. Patent portal vein. Mild cortical thinning of the kidneys. No hydronephrosis. There is a wedge-shaped ill-defined focus of decreased enhancement/hypodensity within the posterior superior pole right kidney measuring 2.1 x 1.8 cm. The renal arteries and veins appear patent. Decompressed bladder with wall thickening. Calcified fundal uterine fibroid. Bilateral adnexal versus ovarian cysts measure up to 3.4 cm on the left and 2 cm on the right. Atherosclerosis of the aorta without aneurysm. No lymphadenopathy. Small hiatal hernia. Colonic diverticulosis without acute diverticulitis. Air- fluid levels noted within the right hemicolon. No bowel obstruction or bowel wall thickening. Normal appendix. Prior ventral abdominal wall hernia repair. Superior endplate compression deformity of less than 20% with fracture line noted involving the anterior aspect of the superior endplate at L2. No retropulsion or significant paravertebral edema. IMPRESSION: 1. No bowel obstruction or bowel wall thickening. 2. Colonic diverticulosis without acute diverticulitis. 3. Infarct of the superior pole right kidney measures 2 cm, likely acute versus subacute. 4. Mild acute to subacute appearing L2 superior endplate compression deformity without retropulsion. 5. Incidental findings as above. ACT 112: Negative or not required by law. The above report was generated using voice recognition software. It may contain grammatical, syntax or spelling errors. Electronically signed by: Koko Villegas M.D. 01/11/2025 1:25 PM Abdomen/Pelvis CTA 01/11/25 15:30 Clinical history: Renal infarct Technique: Axial computed tomography images were obtained of the abdomen and pelvis after the administration of intravenous contrast according to the CT angiogram protocol No prior examination is available for comparison Findings: The abdominal aorta appears unremarkable with no sign of aneurysm or dissection. No stenosis is seen involving it. The celiac axis and superior mesenteric artery are patent with no stenosis identified. The inferior mesenteric artery is patent as well. There is no sign of renal artery stenosis. The iliac arteries appear unremarkable with no sign of aneurysm or stenosis. The visualized common femoral arteries appear unremarkable as well The liver is overall of normal size, attenuation, and contour with no sign of cirrhosis or significant fatty infiltration. No liver mass lesion is seen. The portal vein is patent. The gallbladder has been removed. There is mild bile duct dilatation that is likely due to the postcholecystectomy state The spleen is of normal size. No focal splenic lesion is evident. The pancreas appears normal with no sign of acute or chronic pancreatitis and no mass lesion noted. The pancreatic duct is of normal caliber. The adrenal glands appear unremarkable. No definite renal or proximal ureteral calculi are seen on this contrast-enhanced study. There is no hydronephrosis or perinephric stranding. There is an approximately 1.6 cm low-attenuation area in the cortex of the upper right kidney that could represent an infarct No adenopathy is seen. There is a small hiatal hernia. There is no sign of small bowel obstruction. There is diverticulosis without definite diverticulitis. No free intraperitoneal fluid or air is identified. No distal ureteral or bladder calculi are seen. No bladder mass lesion is evident. There is a partially calcified uterine leiomyoma. There is a 3.3 cm left ovarian cyst and there is a 1.9 cm right ovarian cyst The lungs bases appear clear. There is an L2 compression fracture, likely old. There is lumbar scoliosis and degenerative disc disease. No focal osseous lesion is seen Impression: 1. Normal-appearing abdominal aorta 2. No sign of renal or mesenteric artery stenosis 3. No apparent stenosis of the pelvic arteries 4. Low-attenuation area in the upper right kidney that could represent an infarct. Focal pyelonephritis is a less likely possibility. A renal mass is much less likely. A follow-up renal protocol CT with and without contrast could be considered in 3 months 5. Diverticulosis without definite diverticulitis 6. Uterine leiomyoma 7. Bilateral ovarian cysts, indeterminate in nature in this postmenopausal patient. A pelvic ultrasound is recommended for further evaluation 8. Small hiatal hernia ACT 112: Positive. There are findings on this exam that require communication between the performing entity and the patient following Patient Test Result Information Act ([place] ACT 112) guidelines. Electronically signed by Felix Richard 01-11-2025 4:11 PM Chest CTA 01/11/25 16:49 EXAMINATION: CT angio chest with contrast CLINICAL HISTORY: Renal infarction PRIORS: None TECHNIQUE: Contiguous axial images were obtained through the chest with the use of intravenous contrast. Sagittal and coronal reformations are supplied. FINDINGS: Dental amalgam creates significant beam hardening artifact. Motion artifact degrades image quality. The pulmonary arteries are well opacified. A possible filling defect is present in the right lower lobe segmental pulmonary artery, image 89 through 91, series 4 and corresponding sagittal image 20, series 401. No additional filling defect in the pulmonary arteries identified. No CT features of heart strain. Mild cardiomegaly noted. No pleural or pericardial effusion. Nonpathologically enlarged lymph nodes present in the mediastinum. Trachea and mainstem bronchi patent. No airspace consolidation, pneumothorax or dominant mass. Trachea is tortuous. No acute abnormality in the upper abdomen. Moderate degenerative change of the thoracic spine. IMPRESSION: 1. A segmental right lower lobe pulmonary embolism is identified, allowing for significant motion and beam hardening artifact, with no CT features of heart strain. ACT 112: Positive. There are findings on this examination that require communication between the performing entity and the patient following Patient Test Result Information Act ([place] ACT 112) guidelines. Electronically signed by Mita Magana 01-11-2025 6:35 PM Hip/Pelvis X-Ray 01/12/25 10:47 XR hip RT 2V w pelvis CLINICAL HISTORY: R hip pain COMPARISON: None FINDINGS: Urinary bladder is distended with retained contrast. No fracture or dislocation seen. No significant degenerative change at the hips. SI joints are unremarkable. IMPRESSION: No acute findings. ACT 112: Negative or not required by law. Electronically signed by: Dev Adrian M.D. 01/12/2025 12:10 PM Pelvis Ultrasound 01/12/25 15:21 ULTRASOUND PELVIS INDICATION: Pelvic pain TECHNIQUE: Grayscale and color Doppler ultrasound of the pelvis was performed transabdominally. COMPARISON: CT abdomen pelvis 1 day previous FINDINGS: Uterus: Uterus measures 7.2 x 2.9 x 3.6 cm No abnormal thickening of the endometrium. There is a 3.1 x 1.9 x 3.1 cm area with calcifications in the uterine fundus. Right ovary: Measures 2.7 x 1.8 x 2.0 cm. Normal vascularity is noted. There is a 1.8 x 1.9 x 1.6 cm simple cyst. Left ovary: Measures 3.4 x 3.8 x 3.1 cm. Normal vascularity is noted. There is a 3.4 x 2.5 x 2.8 cm simple cyst. Free fluid: Trace free fluid is noted. Other: None. IMPRESSION: Bilateral ovarian cystic lesions appear to represent simple cysts in this examination. No evidence of ovarian torsion. Uterine fundal fibroid. Electronically signed by Kyle Wilson 01-12-2025 9:46 PM Abdomen/Pelvis CT 01/13/25 07:[address] WITH IV CONTRAST CT DOSE: 665.57 mGy.cm HISTORY: butoock hematoma, hgb drop, r/o bleed TECHNIQUE: Multiaxial CT images of the abdomen and pelvis were performed following the IV administration of 90 cc of Optiray, A dose lowering technique was utilized adhering to the principles of ALARA. COMPARISON STUDY: 01/11/2025 FINDINGS: ABDOMEN: Gallbladder is surgically absent. Liver, spleen, pancreas, and adrenal glands are unremarkable. There is a stable small wedge-shaped area of nonen hancement posterior upper right kidney consistent with small right renal infarction. There is no hydronephrosis bilaterally. No abdominal aortic aneurysm. Pelvis: Urinary bladder is severely distended. Stable bilateral ovarian cysts, 3.5 cm on the left 2 cm on the right. Stable calcified uterine fibroid. There is sigmoid diverticulosis. No acute diverticulitis. No bowel inflammation or obstruction. No free fluid or free air. There is an interval layering hematoma posterior inferior right gluteal subcutaneous tissues measuring 8 x 7 cm axially by 6 cm craniocaudad. No vascular contrast extravasation seen to suggest ongoing hemorrhage. Osseous structures: There is a stable mild recent subacute appearing vertebral body compression fracture at the superior endplate of the L2 vertebral body. No new fractures seen in the visualized osseous structures. IMPRESSION: 1. Acute to recent subacute superficial hematoma at the right gluteal subcutaneous soft tissues. 2. Otherwise as described. ACT 112: Negative or not required by law. The above report was generated using voice recognition software. It may contain grammatical, syntax or spelling errors. Electronically signed by: Dev Adrian M.D. 01/13/2025 9:38 AM
[2025-01-14] MEDS: DOCUSATE SODIUM/SENNA 50/8.6MG TAB PO SCH (21:55)
[2025-01-14] MEDS: POLYETHYLENE (MIRALAX) 17 GM PACK PO STA (21:55)
[2025-01-15 06:23] LABS: Hematocrit (blood only) 29.7 % (37.0-47.0); Hemoglobin 9.7 g/dl (12.0-16.0); Mean Corpuscular Hemoglobin 31.2 pg (25.0-34.0); Mean Corpuscular Volume 95.5 fL (80.0-100.0); Platelet Count 244 K/uL (130-400); RDW Standard Deviation 50.3 fL (36.4-46.3); Red Blood Count 3.11 M/uL (4.20-5.40); White Blood Count 6.23 K/ul (4.8-10.8)
[2025-01-15 06:45] LABS: ANTI-Xa, UFH(UnfractionatedHep 0.62 IU/ml (0.3-0.7)
[2025-01-15 06:51] LABS: Alanine Aminotransferase 21.0 U/L (7-52); Albumin Globulin Ratio 1.4 (0.9-2); Alkaline Phosphatase 56.0 U/L (34-104); Anion Gap 9.0 (3-11); Bilirubin,Total 0.5 mg/dl (0.2-1.0); Blood Urea Nitrogen 13.0 mg/dl (6-23); Calcium 8.1 mg/dl (8.6-10.3); Carbon Dioxide 23.0 mmol/L (21-32); Chloride 106.0 mmol/L (98-107); Creatinine Clr Calc Pharmacy 53.7 ml/min; Globulin 2.3 gm/dl (2.5-4.0); Glucose 98.0 mg/dl (70-99(Fasting)); Magnesium 1.7 mg/dl (1.7-2.4); Potassium 3.6 mmol/L (3.5-5.1); Sodium 138.0 mmol/L (136-145); Total Protein 5.5 gm/dl (6.0-8.3)
[2025-01-15] MEDS: CHOLECALCIFEROL 25 MCG (1000 UNITS) TAB PO SCH (10:34)
[2025-01-15] MEDS: ACETAMINOPHEN 1,000 MG/100 ML VIAL IV SCH (13:24)
--- NOTE | 2025-01-15 14:21 | Hospitalist Progress Note ---
Date of Service January 15, 2025 Assessment & Plan (1) Syncope: (2) Infarction of kidney: (3) Diarrhea: (4) Myoclonus: (5) Dementia: (6) Primary progressive aphasia: (7) HTN (hypertension): (8) Anxiety: Plan 84 year old female with PMH significant for dementia, primary progressive aphasia, myoclonus, peripheral artery disease, history of symptomatic PVCs, hypertension, GERD, PMR, osteoporosis, idiopathic peripheral neuropathy, history of Guillain-Hughes syndrome, IBS with diarrhea, and anxiety who presented to the ED on 01/11/2025 after having a syncopal episode at home. 01/13- Hgb with noted drop from 15 to 10 today. Extensive discussion with pts 2 daughters and about GOC and her wishes given the large hematoma and need for IV heparin for PEs. Agreeable to Palliative Care consult, CT abd/pelvis repeated with no indication for current bleed. Family would like DNR/DNI code status and to continue with the IV heparin currently. Would like her to go to SNF/rehab She is currently being treated as follows: Syncope Likely due to dehydration/diarrhea EKG NSR Head CT negative Labs and UA unremarkable Orthostatic vitals PT/OT consults- recommending acute rehab on dc Renal infarct Pulmonary Emboli CT abdomen and pelvis revealed infarct of superior pole right kidney measuring 2cm CTA abdomen and pelvis revealed low attenuation area in upper right kidney that could represent an infarct; normal abdominal aorta, no renal artery stenosis, no pelvic artery stenosis CTA chest noting pulmonary Emboli Echo with small patent foramen ovale Hypercoagulable labs pending A1C and lipid panel normal Admitting team discussed with Dr Dmitriy Rivera from [facility] who recommended echo and CTA chest to evaluate for thrombus and noted patient will need lifelong anticoagulation Heparin drip started Monitor H/H- drop to 10 today, stable Will transition to po anticoagulation if hgb remains stable Buttock Hematoma Hgb drop to 10 from [address] abd/pelvis repeated stat on 01/13, noted the following: "interval layering hematoma posterior inferior right gluteal subcutaneous tissues measuring 8 x 7 cm axially by 6 cm craniocaudad. No vascular contrast extravasation seen to suggest ongoing hemorrhage." Extensive discussion with family given PE and need for anticoagulation- would like to continue with IV heparin. Continue to closely monitor the H/H 01/15-stable, h/h 9.7 down from 10.1 the day prior. Will continue to monitor Abnormal CT scan findings Calcified Uterine leiomyoma with noted bilateral ovarian cysts that measure up to 3.4cm on the left and 2cm on the right - recommended pelvic ultrasound which confirmed ovarian cysts. Atherosclerosis of aorta without aneurysm- will need PCP followup as an outpt Small hiatal hernia-monitor for any feeding issues L2 superior endplate compression deformity without retropulsion - recommend follow up with orthospine, pain control prn IBS with diarrhea Follows with [facility] GI last seen 01/05/2025 Continue colestipol Avoid Imodium per GI Stool studies pending collection (c diff and stool Pcr) Consider GI consult if no improvement for possible imaging Hypertension Continue losartan History of PVCs Continue metoprolol Dementia Myoclonus Follows with [place] [facility] last seen 12/07/2024 Continue memantine and donepezil Continue keppra and divalproex PMR Follows with [facility] Rheumatology last seen 12/10/2024 GERD Continue omeprazole DVT Prophylaxis: Heparin drip Code Status: FULL CODE - As per discussion at bedside with the patient. PCP: Dr Kris Gutierrez Dispo: acute rehab once medically stable Admission and Anticipated Discharge Date Admission Date: January 11, 2025 Subjective Pt was seen with her daughter and grandson at bedside. Minimal drop in hgb today, no jonatan bleeding Has been having some dysuria, urine sample obtained. Pt's daughter updated pt's via telephone, questions answered States pain in R hip only when she lays on it Denies SOB Review of Systems Review of Systems: All systems reviewed & are unremarkable except as noted in Subjective Physical Exam Physical Exam: General: Alert, not oriented to place or time No acute distress Skin: purplish bruise on R buttock cheek, firm, stable Psych: Appropriate mood and affect Neuro: not oriented to place or time HEENT: NC/AT CV: RRR Resp: NC in nares, Breath sounds clear bilaterally, no increased effort of breathing Abdomen: Soft, nontender, nondistended Extremities: R outer thigh tender, No edema in lower extremities bilaterally. Results & Data Results & Data Vital Signs (Past 12 Hours) Vital Signs Temp Pulse Pulse Resp BP BP Pulse Ox 01/15/25 13:37 01/15/25 11:41 36.8 C 72 16 127/73 100 01/15/25 08:09 36.6 C 72 16 135/79 99 01/15/25 05:42 72 01/15/25 03:13 36.5 C 62 18 158/75 H 98 O2 Del Method O2 Flow Rate 01/15/25 13:37 Nasal Cannula 3 01/15/25 11:41 Nasal Cannula 2 01/15/25 08:09 Nasal Cannula 3 01/15/25 05:42 01/15/25 03:13 Nasal Cannula 2
[2025-01-15 15:31] LABS: Appearance Urine Clear (Clear); Glucose Urine UA Negative (Negative)
[2025-01-15] MEDS: cefTRIAXone SODIUM 2,000 MG/50 ML BAG IV SCH (16:30)
[2025-01-16 06:41] LABS: Hematocrit (blood only) 29.4 % (37.0-47.0); Hemoglobin 9.5 g/dl (12.0-16.0); Immature Granulocytes # (auto) 0.24 K/uL (0.01-0.20); Immature Granulocytes % (auto) 3.8 %; Mean Corpuscular Hemoglobin 31.5 pg (25.0-34.0); Mean Corpuscular Volume 97.4 fL (80.0-100.0); Platelet Count 247 K/uL (130-400); RDW Standard Deviation 51.6 fL (36.4-46.3); Red Blood Count 3.02 M/uL (4.20-5.40); White Blood Count 6.30 K/ul (4.8-10.8)
[2025-01-16 06:55] LABS: Alanine Aminotransferase 31.0 U/L (7-52); Albumin Globulin Ratio 1.3 (0.9-2); Alkaline Phosphatase 63.0 U/L (34-104); Anion Gap 7.0 (3-11); Bilirubin,Total 0.6 mg/dl (0.2-1.0); Blood Urea Nitrogen 9.0 mg/dl (6-23); Calcium 8.3 mg/dl (8.6-10.3); Carbon Dioxide 29.0 mmol/L (21-32); Chloride 105.0 mmol/L (98-107); Creatinine Clr Calc Pharmacy 65.5 ml/min; Globulin 2.4 gm/dl (2.5-4.0); Glucose 95.0 mg/dl (70-99(Fasting)); Iron 32.0 mcg/dl (35-150); Magnesium 1.8 mg/dl (1.7-2.4); Potassium 3.7 mmol/L (3.5-5.1); Sodium 141.0 mmol/L (136-145); Total Iron Binding Cap Calc 295.0 mcg/dl (250-450); Total Protein 5.6 gm/dl (6.0-8.3); Transferrin 211.0 mg/dl (200-360); Transferrin (FE) Percent Satur 11.0 % (15-50)
[2025-01-16 07:02] LABS: ANTI-Xa, UFH(UnfractionatedHep 0.48 IU/ml (0.3-0.7)
[2025-01-16 07:14] LABS: Ferritin 149.0 ng/ml (8-388)
[2025-01-16 07:20] LABS: Folate (Folic Acid),Ser orPlas 15.72 ng/ml (>5.38)
[2025-01-16 07:21] LABS: Vitamin B12 1084.0 pg/ml (180-914)
[2025-01-16] MEDS: IRON SUCROSE 200 MG in SODIUM CHLORIDE 0.9% 100 ML IV ONE (09:49)
--- NOTE | 2025-01-16 12:10 | Hospitalist Progress Note ---
Date of Service January 16, 2025 Assessment & Plan (1) Syncope: (2) Infarction of kidney: (3) Diarrhea: (4) Myoclonus: (5) Dementia: (6) Primary progressive aphasia: (7) HTN (hypertension): (8) Anxiety: Plan 84 year old female with PMH significant for dementia, primary progressive aphasia, myoclonus, peripheral artery disease, history of symptomatic PVCs, hypertension, GERD, PMR, osteoporosis, idiopathic peripheral neuropathy, history of Guillain-[place] syndrome, IBS with diarrhea, and anxiety who presented to the ED on 01/11/2025 after having a syncopal episode at home. 01/13- Hgb with noted drop from 15 to 10 today. Extensive discussion with pts 2 daughters and about GOC and her wishes given the large hematoma and need for IV heparin for PEs. Agreeable to Palliative Care consult, CT abd/pelvis repeated with no indication for current bleed. Family would like DNR/DNI code status and to continue with the IV heparin currently. Would like her to go to SNF/rehab She is currently being treated as follows: Syncope Likely due to dehydration/diarrhea EKG NSR Head CT negative Labs and UA unremarkable Orthostatic vitals PT/OT consults- recommending acute rehab on dc Renal infarct Pulmonary Emboli CT abdomen and pelvis revealed infarct of superior pole right kidney measuring 2cm CTA abdomen and pelvis revealed low attenuation area in upper right kidney that could represent an infarct; normal abdominal aorta, no renal artery stenosis, no pelvic artery stenosis CTA chest noting pulmonary Emboli Echo with small patent foramen ovale Hypercoagulable labs pending A1C and lipid panel normal Admitting team discussed with Dr Dmitriy Rivera from [facility] who recommended echo and CTA chest to evaluate for thrombus and noted patient will need lifelong anticoagulation Heparin drip started Monitor H/H- drop to 10 today, stable Will transition to po anticoagulation if hgb remains stable Buttock Hematoma Acute Blood Loss Anemia Hgb drop to 10 from [address] abd/pelvis repeated stat on 01/13, noted the following: "interval layering hematoma posterior inferior right gluteal subcutaneous tissues measuring 8 x 7 cm axially by 6 cm craniocaudad. No vascular contrast extravasation seen to suggest ongoing hemorrhage." Extensive discussion with family given PE and need for anticoagulation- would like to continue with IV heparin. Continue to closely monitor the H/H 01/15-stable, h/h 9.7 down from 10.1 the day prior. Will continue to monitor 01/16- anemia panel noting iron deficiency, IV venofer ordered. Consider po anticoagulant transition tomorrow Abnormal CT scan findings Calcified Uterine leiomyoma with noted bilateral ovarian cysts that measure up to 3.4cm on the left and 2cm on the right - recommended pelvic ultrasound which confirmed ovarian cysts. Atherosclerosis of aorta without aneurysm- will need PCP followup as an outpt Small hiatal hernia-monitor for any feeding issues L2 superior endplate compression deformity without retropulsion - recommend follow up with orthospine, pain control prn IBS with diarrhea Follows with [facility] GI last seen 01/05/2025 Continue colestipol Avoid Imodium per GI Stool studies pending collection (c diff and stool Pcr) Consider GI consult if no improvement for possible imaging Hypertension Continue losartan History of PVCs Continue metoprolol Dementia Myoclonus Follows with [facility] last seen 12/07/2024 Continue memantine and donepezil Continue keppra and divalproex PMR Follows with [facility] Rheumatology last seen 12/10/2024 GERD Continue omeprazole DVT Prophylaxis: Heparin drip Code Status: FULL CODE - As per discussion at bedside with the patient. PCP: Dr Kris Gutierrez Dispo: acute rehab once medically stable Admission and Anticipated Discharge Date Admission Date: January 11, 2025 Subjective Pt was seen with family at bedside Sitting in a chair beside her bed Family with lots of questions, answered Review of Systems Review of Systems: All systems reviewed & are unremarkable except as noted in Subjective Physical Exam Physical Exam: General: Alert, not oriented to place or time No acute distress Skin: purplish bruise on R buttock cheek, firm, stable Psych: Appropriate mood and affect Neuro: not oriented to place or time HEENT: NC/AT CV: RRR Resp: NC in nares, Breath sounds clear bilaterally, no increased effort of breathing Abdomen: Soft, nontender, nondistended Extremities: R outer thigh tender, No edema in lower extremities bilaterally. Results & Data Results & Data Vital Signs (Past 12 Hours) Vital Signs Temp Pulse Pulse Resp BP BP Pulse Ox 01/16/25 11:50 37 C 84 16 115/72 100 01/16/25 10:11 01/16/25 07:54 37 C 74 16 120/73 99 01/16/25 07:02 78 01/16/25 02:23 36.2 C L 66 16 130/71 100 O2 Del Method O2 Flow Rate 01/16/25 11:50 Nasal Cannula 3 01/16/25 10:11 Nasal Cannula 3 01/16/25 07:54 Nasal Cannula 3 01/16/25 07:02 01/16/25 02:23 Nasal Cannula 3
[2025-01-17 07:13] LABS: Hematocrit (blood only) 27.2 % (37.0-47.0); Hemoglobin 8.9 g/dl (12.0-16.0); Mean Corpuscular Hemoglobin 31.3 pg (25.0-34.0); Mean Corpuscular Volume 95.8 fL (80.0-100.0); Platelet Count 258 K/uL (130-400); RDW Standard Deviation 51.3 fL (36.4-46.3); Red Blood Count 2.84 M/uL (4.20-5.40); White Blood Count 6.47 K/ul (4.8-10.8)
[2025-01-17 07:32] LABS: Alanine Aminotransferase 48.0 U/L (7-52); Albumin Globulin Ratio 1.3 (0.9-2); Alkaline Phosphatase 60.0 U/L (34-104); Anion Gap 8.0 (3-11); Bilirubin,Total 0.5 mg/dl (0.2-1.0); Blood Urea Nitrogen 11.0 mg/dl (6-23); Calcium 8.1 mg/dl (8.6-10.3); Carbon Dioxide 28.0 mmol/L (21-32); Chloride 105.0 mmol/L (98-107); Creatinine Clr Calc Pharmacy 67.3 ml/min; Globulin 2.3 gm/dl (2.5-4.0); Glucose 102.0 mg/dl (70-99(Fasting)); Magnesium 1.6 mg/dl (1.7-2.4); Potassium 3.2 mmol/L (3.5-5.1); Sodium 141.0 mmol/L (136-145); Total Protein 5.4 gm/dl (6.0-8.3)
[2025-01-17 07:43] LABS: ANTI-Xa, UFH(UnfractionatedHep 0.52 IU/ml (0.3-0.7)
[2025-01-17] MEDS: POLYETHYLENE (MIRALAX) 17 GM PACK PO PRN (09:10)
[2025-01-17] MEDS ORDERED: MAGNESIUM HYDROXIDE SUSP 30 ML UDC PO PRN (10:24)
[2025-01-17] MEDS: OPTIRAY 320 100ml IV ONE (11:14)
[2025-01-17] MEDS: ONDANSETRON INJ 2 MG/ML 2 ML VIAL IV PRN (11:32)
[2025-01-17] MEDS: POTASSIUM CHLORIDE CRTAB 20 MEQ TABCR PO STA (11:37)
[2025-01-17] MEDS: MAGNESIUM OXIDE 400 MG TAB PO SCH (11:37)
--- NOTE | 2025-01-17 11:42 | CT Scan Report ---
CT SCAN OF THE ABDOMEN AND PELVIS WITH IV CONTRAST CLINICAL HISTORY: Drop in H&H. Evaluate for bleed. COMPARISON STUDY: CT of the abdomen and pelvis January 13, 2025. TECHNIQUE: Following the IV administration of 94 cc of Optiray 320, CT scan of the abdomen and pelvi s is performed from the lung bases to the proximal femora. Images are reviewed in the axial, sagittal , and coronal planes. IV contrast was administered without complication. A dose lowering technique wa s utilized adhering to the principles of ALARA. CT DOSE: 865.55 mGy.cm FINDINGS: Visualized portions of the lung bases are unremarkable. A small hiatal hernia is again note d. There is no pneumatosis, free air or portal venous gas. No significant biliary ductal dilatation s tatus post cholecystectomy. Spleen, adrenal glands, left kidney and pancreas are normal. A wedge-shap ed 2.1 cm hypoenhancing focus within the upper pole the right kidney is unchanged. There is no hydron ephrosis. Colonic diverticulosis is present. No evidence for acute diverticulitis. There is no eviden ce for a bowel obstruction. Major vasculature is patent. A B[place]eo balloon within the bladder is noted. The bladder is collapsed. Water attenuation bilateral adnexal lesions are indeterminate but favor cy sts. These are unchanged. An inferior right gluteal hyperdense fluid collection has minimally increas ed in size since CT of January 13, 2025, measuring 7.6 x 7.5 cm, previously 7.6 x 6.7 cm. This is center ed within the subcutaneous tissues. Adjacent smaller hematomas have also minimally increased in size. Minimal adjacent stranding also represents hemorrhage. There is no active extravasation. No new florence bar are present. L2 compression fracture is unchanged in appearance. This is likely subacute. IMPRESSION: 1. Minimal increase in size of a 7.6 x 7.5 cm inferior right gluteal hematoma since CT of January 13 25. Slight increase in size of adjacent smaller hematomas. No active extravasation. 2. No new sites of hemorrhage. 3. No change in a 2.1 cm wedge-shaped hypoenhancing focus within the right kidney. This favors a suba cute infarct or less likely pyelonephritis. A renal protocol CT in 3 months to ensure resolution and exclude the less likely possibility of an underlying lesion is recommended. 4. Colonic diverticulosis. No evidence for diverticulitis. No bowel obstruction. ACT 112: Negative or not required by law. Electronically signed by: Greg Leal M.D. 01/17/2025 11:40 AM
--- NOTE | 2025-01-17 12:42 | Oncology Consultation ---
Date of Consultation January 17, 2025 Assessment & Plan (1) Pulmonary embolism: (2) Infarction of kidney: (3) Hematoma: Plan -Patient recently diagnosed with PE, renal infarct on heparin who developed hematoma shortly after starting heparin. -Given continued increase in hematoma noted on imaging, drop in hemoglobin from 15-8.9 would recommend considering stopping anticoagulation for now until hematoma improves. Can subsequently start prophylactic anticoagulation Within the next 24 to 48 hours if hematoma and H/H stabilizes. Given patent [place]ry ov[place], she would be at increased risk of arterial/venous thrombosis while off anticoagulation but could argue that risk of persistent bleeding outweighs benefits of anticoagulation at this time. If patient's family prefers for her to remain on anticoagulation, okay to continue as long as understand this risk. -Obtain PT/INR and PTT -Consider giving IV iron given low serum iron levels. Ferritin likely falsely normal due to inflammation. History of Present Illness Reason for Consultation: recs for anticoag, PE, hematoma (pic in chart) Attending Physician: Lynda Medina MD History of Present Illness 84-year-old female with medical history significant for dementia, hypertension, GERD who presented to the ER at [facility] status post fall with complaints of diarrhea and dehydration. CT abdomen and pelvis on 01/11/2025 showed infarct of the superior pole of the right kidney measuring 2 cm likely acute versus subacute. CTA chest, on 01/11/2025 showed segmental right lower lobe pulmonary embolism with no CT features of heart strain. CTA abdomen and pelvis revealed low-attenuation area in the upper right kidney that could rep resent infarct, focal pyelonephritis less likely possibility and renal mass much less likely. She was started on therapeutic heparin. Labs on admission revealed hemoglobin of 15, hematocrit of 46.6 but gradually decreased after starting heparin. She was also noted to have hematoma involving her buttock area for which CT abdomen and pelvis was obtained on 01/13/2025 which showed hematoma posterior inferior to right gluteal subcutaneous muscles measuring 8 x 7 cm axially by [address] abdomen and pelvis obtained on 01/17/2025 showed minimal increase in size of 7.6 x 7.5 inferior right gluteal hematoma, slight increase in size of adjacent smaller hematomas. Allergies Allergy/AdvReac Type Severity Reaction Status Date / Time amoxicillin Allergy Unknown HIVES, RASH Verified 12/07/24 13:39 Influenza Virus Vaccines Allergy Unknown cannot Verified 12/07/24 13:39 have d/t hx of guillian barre Home Medications Medication Instructions Recorded Confirmed Type ascorbic acid (vitamin C) 500 mg 500 mg PO QAM 02/22/22 01/11/25 History capsule cholecalciferol (vitamin D3) 25 25 mcg PO DAILY 02/22/22 01/11/25 History mcg (1,000 unit) capsule melatonin 5 mg capsule 5 mg PO HS PRN Sleep 02/22/22 01/11/25 History omeprazole 20 mg capsule,delayed 20 mg PO QAM 02/22/22 01/11/25 History release losartan 25 mg tablet 12.5 mg PO DAILY 06/02/22 01/11/25 History metoprolol succinate 25 mg PO BID 06/02/22 01/11/25 History donepezil 10 mg tablet 10 mg PO QAM 90 days #90 tabs 04/26/24 01/11/25 Rx celecoxib 100 mg capsule 100 mg PO DAILY 09/06/24 01/11/25 History divalproex 500 mg tablet,extended 500 mg PO DAILY #90 tabs 11/08/24 01/11/25 Rx release 24 hr sertraline 25 mg tablet 25 mg PO DAILY 12/07/24 01/11/25 History alendronate 70 mg tablet 70 mg PO QAM 01/11/25 01/11/25 History aspirin 81 mg capsule,delayed 81 mg PO DAILY 01/11/25 01/11/25 History release colestipol 1 gram tablet 1 g PO BID 01/11/25 01/11/25 History loratadine 10 mg tablet 10 mg PO DAILY PRN allergies 01/11/25 01/11/25 History memantine 5 mg tablet 5 mg PO BID 01/11/25 01/11/25 History levetiracetam 250 mg tablet 250 mg PO BID 90 days #180 tabs 01/12/25 Rx (Keppra) Patient History Medical History (Updated 01/17/25 @ 17:13 by Keira Epperson MD) Vitamin D deficiency Confusion Seizure-like activity COVID-19 Depression Aphasia Stroke-like symptoms Memory loss Speech fluency problem 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 Encounter for annual routine gynecological examination History of allergy Laryngopharyngeal reflux Vocal cord paralysis Gastroenteritis due to COVID-19 virus COVID-19 Incisional hernia Surgical History S/P hemorrhoidectomy H/O tubal ligation S/P cholecystectomy laparoscopic with cholangiogram, 2014, [place] H/O hernia repair laparoscopic, 10cm surgimesh, 05/2015, [facility] Family History (Updated 01/11/25 @ 16:39 by YONIS Hill) Mother Colorectal cancer Hypertension Grandmother Diabetes Father Hypertension Heart disease Denies family history of Ovarian cancer Breast cancer Social History (Updated 01/11/25 @ 16:39 by YONIS Hill) Smoking Status: Former smoker Second Hand Exposure: No; Do You Dip or Chew Tobacco: No; Tobacco Cessation Education Requested by Patient: No Hx Alcohol Use: No Hx Substance Use: No Preferred Language: Latvian Communication Ability: Effective Communication Ability Comment: expressive aphasia 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: No Beliefs That Will Affect Care: Protestant marital status: Current Living Situation: Spouse Other Information That Helps Us Care for You: No Feels Safe at Home: Yes Safety Concerns: Feels Safe At This Time Dental Care, Regularly: Yes Seatbelt Use: always Sunscreen Use: Yes Assistive Devices: Cane Results & Data Vital Signs (Past 12 Hours) Vital Signs Temp Pulse Pulse Resp BP Pulse Ox O2 Del Method 01/17/25 11:53 97 H 116/62 01/17/25 11:45 36.8 C 96 H 18 99/62 L 95 Nasal Cannula 01/17/25 10:00 86 01/17/25 07:20 37.1 C 94 H 20 101/64 95 Nasal Cannula 01/17/25 04:48 36.8 C 85 16 105/72 97 Nasal Cannula 01/17/25 02:20 79 O2 Flow Rate 01/17/25 11:53 01/17/25 11:45 1 01/17/25 10:00 01/17/25 07:20 1 01/17/25 04:48 3 01/17/25 02:20
--- NOTE | 2025-01-17 15:14 | Hospitalist Progress Note ---
Date of Service January 17, 2025 Assessment & Plan (1) Syncope: (2) Infarction of kidney: (3) Diarrhea: (4) Myoclonus: (5) Dementia: (6) Primary progressive aphasia: (7) HTN (hypertension): (8) Anxiety: Plan 84 year old female with PMH significant for dementia, primary progressive aphasia, myoclonus, peripheral artery disease, history of symptomatic PVCs, hypertension, GERD, PMR, osteoporosis, idiopathic peripheral neuropathy, history of Guillain-[place] syndrome, IBS with diarrhea, and anxiety who presented to the ED on 01/11/2025 after having a syncopal episode at home. 01/13- Hgb with noted drop from 15 to 10 today. Extensive discussion with pts 2 daughters and about GOC and her wishes given the large hematoma and need for IV heparin for PEs. Agreeable to Palliative Care consult, CT abd/pelvis repeated with no indication for current bleed. Family would like DNR/DNI code status and to continue with the IV heparin currently. Would like her to go to SNF/rehab 01/17- has had very slow trickle or decline of her hgb from 10 on 01/13 to 8[address] abd/pelvis noted a slight enlargement of primary hematoma and now smaller hematomas. Still on IV heparin for PEs. hematology consulted for further recs She is currently being treated as follows: Syncope Likely due to dehydration/diarrhea EKG NSR Head CT negative Labs and UA unremarkable Orthostatic vitals PT/OT consults- recommending acute rehab on dc Renal infarct Pulmonary Emboli CT abdomen and pelvis revealed infarct of superior pole right kidney measuring 2cm CTA abdomen and pelvis revealed low attenuation area in upper right kidney that could represent an infarct; normal abdominal aorta, no renal artery stenosis, no pelvic artery stenosis CTA chest noting pulmonary Emboli Echo with small patent foramen ovale Hypercoagulable labs pending A1C and lipid panel normal Admitting team discussed with Dr Dmitriy Rivera from [facility] who recommended echo and CTA chest to evaluate for thrombus and noted patient wi ll need lifelong anticoagulation Heparin drip started Monitor H/H- drop to 10 today, stable Will transition to po anticoagulation if hgb remains stable 01/17-Hematology consulted, appreciate recs Buttock Hematoma Acute Blood Loss Anemia Hgb drop to 10 from [address] abd/pelvis repeated stat on 01/13, noted the following: "interval layering hematoma posterior inferior right gluteal subcutaneous tissues measuring 8 x 7 cm axially by 6 cm craniocaudad. No vascular contrast extravasation seen to suggest ongoing hemorrhage." Extensive discussion with family given PE and need for anticoagulation- would like to continue with IV heparin. Continue to closely monitor the H/H 01/15-stable, h/h 9.7 down from 10.1 the day prior. Will continue to monitor 01/16- anemia panel noting iron deficiency, IV venofer ordered. Consider po anticoagulant transition tomorrow Abnormal CT scan findings Calcified Uterine leiomyoma with noted bilateral ovarian cysts that measure up to 3.4cm on the left and 2cm on the right - recommended pelvic ultrasound which confirmed ovarian cysts. Atherosclerosis of aorta without aneurysm- will need PCP followup as an outpt Small hiatal hernia-monitor for any feeding issues L2 superior endplate compression deformity without retropulsion - recommend follow up with orthospine, pain control prn IBS with diarrhea Follows with [facility] GI last seen 01/05/2025 Continue colestipol Avoid Imodium per GI Stool studies pending collection (c diff and stool Pcr) Consider GI consult if no improvement for possible imaging 01/17- per family pt now constipated, on stool softeners with prn miralax. Consider holding colestipol if no BM Hypertension Continue losartan History of PVCs Continue metoprolol Dementia Myoclonus Follows with [facility] last seen 12/07/2024 Continue memantine and donepezil Continue keppra and divalproex PMR Follows with [facility] Rheumatology last seen 12/10/2024 GERD Continue omeprazole DVT Prophylaxis: Heparin drip Code Status: FULL CODE - As per discussion at bedside with the patient. PCP: Dr Kris Gutierrez Dispo: acute rehab once medically stable Admission and Anticipated Discharge Date Admission Date: January 11, 2025 Subjective Pt was seen in the AM with daughter at bedside hgb SLOWLY trending down Repeat CT abd/pelvis ordered and Hematology consulted. Later results of CT discussed with pt's at bedside- slight enlargement of primary hematoma and now smaller hematomas Review of Systems Review of Systems: All systems reviewed & are unremarkable except as noted in Subjective Physical Exam Physical Exam: General: Alert, not oriented to place or time No acute distress Skin: purplish bruise on R buttock cheek, firm, stable Psych: Appropriate mood and affect Neuro: not oriented to place or time HEENT: NC/AT CV: RRR Resp: NC in nares, Breath sounds clear bilaterally, no increased effort of breathing Abdomen: Soft, nontender, nondistended Extremities: R outer thigh tender, No edema in lower extremities bilaterally. Results & Data Results & Data Vital Signs (Past 12 Hours) Vital Signs Temp Pulse Pulse Resp BP Pulse Ox O2 Del Method 01/17/25 11:53 97 H 116/62 01/17/25 11:45 36.8 C 96 H 18 99/62 L 95 Nasal Cannula 01/17/25 10:00 86 01/17/25 09:00 Nasal Cannula 01/17/25 07:20 37.1 C 94 H 20 101/64 95 Nasal Cannula 01/17/25 04:48 36.8 C 85 16 105/72 97 Nasal Cannula 01/17/25 02:20 79 O2 Flow Rate 01/17/25 11:53 01/17/25 11:45 1 01/17/25 10:00 01/17/25 09:00 1 01/17/25 07:20 1 01/17/25 04:48 3 01/17/25 02:20
[2025-01-17 18:03] LABS: INR 1.0 (0.9-1.1); Partial Thromboplastin Time 51 Seconds (21-31); Prothrombin Time 10.5 Seconds (9.0-12.0)
[2025-01-18 07:00] LABS: Hematocrit (blood only) 27.5 % (37.0-47.0); Hemoglobin 8.8 g/dl (12.0-16.0); Mean Corpuscular Hemoglobin 31.2 pg (25.0-34.0); Mean Corpuscular Volume 97.5 fL (80.0-100.0); Platelet Count 279 K/uL (130-400); RDW Standard Deviation 53.9 fL (36.4-46.3); Red Blood Count 2.82 M/uL (4.20-5.40); White Blood Count 5.54 K/ul (4.8-10.8)
[2025-01-18 07:26] LABS: ANTI-Xa, UFH(UnfractionatedHep < 0.10 IU/ml (0.3-0.7)
[2025-01-18 07:33] LABS: Alanine Aminotransferase 39.0 U/L (7-52); Albumin Globulin Ratio 1.3 (0.9-2); Alkaline Phosphatase 59.0 U/L (34-104); Anion Gap 7.0 (3-11); Bilirubin,Total 0.5 mg/dl (0.2-1.0); Blood Urea Nitrogen 10.0 mg/dl (6-23); Calcium 8.1 mg/dl (8.6-10.3); Carbon Dioxide 28.0 mmol/L (21-32); Chloride 105.0 mmol/L (98-107); Creatinine Clr Calc Pharmacy 58.5 ml/min; Globulin 2.4 gm/dl (2.5-4.0); Glucose 101.0 mg/dl (70-99(Fasting)); Magnesium 1.8 mg/dl (1.7-2.4); Potassium 4.0 mmol/L (3.5-5.1); Sodium 140.0 mmol/L (136-145); Total Protein 5.5 gm/dl (6.0-8.3)
[2025-01-18 07:52] LABS: Immature Granulocytes # (auto) 0.31 K/uL (0.01-0.20); Immature Granulocytes % (auto) 5.6 %; Ovalocytes 1+; Polychromasia 1+
[2025-01-18] MEDS: FERROUS SULFATE 325 MG TAB PO SCH (08:14)
[2025-01-18] MEDS: SENNA 8.6 MG TAB PO ONE (08:27)
[2025-01-18] MEDS: HEPARIN SOD 5,000 UNIT/0.5 ML VIAL SQ SCH (13:12)
--- NOTE | 2025-01-18 18:34 | Hospitalist Progress Note ---
Date of Service January 18, 2025 Assessment & Plan (1) Syncope: (2) Infarction of kidney: (3) Diarrhea: (4) Myoclonus: (5) Dementia: (6) Primary progressive aphasia: (7) HTN (hypertension): (8) Anxiety: Plan Ms Oropeza is an 84 year old female with PMH significant for dementia, primary progressive aphasia, myoclonus, peripheral artery disease, history of symptomatic PVCs, hypertension, GERD, PMR, osteoporosis, idiopathic peripheral neuropathy, history of Guillain-York syndrome, IBS with diarrhea, and anxiety who presented to the ED on 01/11/2025 after having a syncopal episode at home. Patient was found to have pulmonary emboli. Patient's course complicated by acute blood loss anemia iso right gluteal hematoma Heme/onc consulted previously and recommends if hgb stable consider prophylactic dosing. Given hgb 8.8-8.9, will start heparin subq and assess hemoglobin stability with plans to escalate as able to therapuetic iso pe. #Syncope Likely due to dehydration/diarrhea EKG NSR Head CT negative Labs and UA unremarkable Orthostatic vitals PT/OT consults- recommending acute rehab on dc #Renal infarct #Bilateral Pulmonary Emboli CT abdomen and pelvis revealed infarct of superior pole right kidney measuring 2cm CTA abdomen and pelvis revealed low attenuation area in upper right kidney that could represent an infarct; normal abdominal aorta, no renal artery stenosis, no pelvic artery stenosis CTA chest noting pulmonary Emboli Echo with small patent foramen ovale Hypercoagulable labs pending A1C and lipid panel normal Heparin drip started initiallly with precipitous drop in hgb HGB at 8.8-8.9, will trial dvt ppx dosing with heparin sq, plans to escalate as long as stable #Right gluteal Hematoma #Acute Blood Loss Anemia Hgb drop to 10 from 15 on the , then further to 8-9 CT abd/pelvis repeated stat on 01/13, noted the following: "interval layering hematoma posterior inferior right gluteal subcutaneous tissues measuring 8 x 7 cm axially by 6 cm craniocaudad. No vascular contrast extravasation seen to suggest ongoing hemorrhage." Extensive discussion with family given PE and need for anticoagulation- would like to continue with anticoagulation if able Continue to closely monitor the H/H trial of heparin sq, with po ac possibly if remains stable #Abnormal CT scan findings Calcified Uterine leiomyoma with noted bilateral ovarian cysts that measure up to 3.4cm on the left and 2cm on the right - recommended pelvic ultrasound which confirmed ovarian cysts. Atherosclerosis of aorta without aneurysm- will need PCP followup as an outpt Small hiatal hernia-monitor for any feeding issues L2 superior endplate compression deformity without retropulsion - recommend follow up with orthospine, pain control prn #IBS with diarrhea Follows with [facility] GI last seen 01/05/2025 Continue colestipol #Hypertension Continue losartan #History of PVCs Continue metoprolol #Dementia #Myoclonus Follows with [facility] last seen 12/07/2024 Continue memantine and donepezil Continue keppra and divalproex #PMR Follows with [facility] Rheumatology last seen 12/10/2024 #GERD Continue omeprazole DVT Prophylaxis: Heparin subq, escalate to therapeutic as tolerated Code Status: FULL CODE - As per discussion at bedside with the patient. PCP: Dr Kris Gutierrez Dispo: acute rehab once medically stable Admission and Anticipated Discharge Date Admission Date: January 11, 2025 Subjective NAEO reports some pain ongoing discussed with daughter--discussed starting prophylactic dosing today prior to therapeutic AC, agreed to plan Physical Exam Constitutional: WD/WN, vitals as above Respiratory: normal respiratory effort, lungs clear to auscultation Cardiovascular: RRR, no murmur, no edema Gastrointestinal (Abdomen): normal bowel sounds, soft, nontender, no hepatosplenomegaly Skin: right buttock discoloration noted Results & Data Results & Data Vital Signs (Past 12 Hours) Vital Signs Temp Pulse Pulse Resp BP Pulse Ox O2 Del Method 01/18/25 15:36 36.8 C 91 H 18 114/54 L 95 Nasal Cannula 01/18/25 13:00 92 H 01/18/25 11:16 37.2 C 75 18 104/64 98 Nasal Cannula 01/18/25 08:15 36.8 C 85 20 124/73 94 Nasal Cannula 01/18/25 07:34 Nasal Cannula O2 Flow Rate 01/18/25 15:36 1 01/18/25 13:00 01/18/25 11:16 1 01/18/25 08:15 1 01/18/25 07:34 1 Laboratory Results Short CBC 01/18/25 Range/Units 06:38 WBC 5.54 (4.8-10.8) K/ul Hgb 8.8 L (12.0-16.0) g/dl Hct 27.5 L (37.0-47.0) % Plt Count 279 (130-400) K/uL BMP 01/18/25 06:38 Sodium 140 Potassium 4.0 D Chloride 105 Carbon Dioxide 28 BUN 10 Creatinine 0.61 Glucose 101 H Calcium 8.1 L Liver Function 01/18/25 Range/Units 06:38 Total Bilirubin 0.5 (0.2-1.0) mg/dl AST 31 (13-39) U/L ALT 39 (7-52) U/L Alkaline Phosphatase 59 (34-104) U/L Albumin 3.1 L (3.4-5.0) gm/dl Medications Administered Home Medications Medication Instructions Recorded Confirmed Last Taken ascorbic acid (vitamin C) 500 mg 500 mg PO QAM 02/22/22 01/11/25 Unknown capsule cholecalciferol (vitamin D3) 25 25 mcg PO DAILY 02/22/22 01/11/25 Unknown mcg (1,000 unit) capsule melatonin 5 mg capsule 5 mg PO HS PRN Sleep 02/22/22 01/11/25 Unknown omeprazole 20 mg capsule,delayed 20 mg PO QAM 02/22/22 01/11/25 Unknown release losartan 25 mg tablet 12.5 mg PO DAILY 06/02/22 01/11/25 Unknown metoprolol succinate 25 mg PO BID 06/02/22 01/11/25 Unknown donepezil 10 mg tablet 10 mg PO QAM 90 days #90 tabs 04/26/24 01/11/25 Unknown celecoxib 100 mg capsule 100 mg PO DAILY 09/06/24 01/11/25 Unknown divalproex 500 mg tablet,extended 500 mg PO DAILY #90 tabs 11/08/24 01/11/25 Unknown release 24 hr sertraline 25 mg tablet 25 mg PO DAILY 12/07/24 01/11/25 Unknown alendronate 70 mg tablet 70 mg PO QAM 01/11/25 01/11/25 Unknown aspirin 81 mg capsule,delayed 81 mg PO DAILY 01/11/25 01/11/25 Unknown release colestipol 1 gram tablet 1 g PO BID 01/11/25 01/11/25 Unknown loratadine 10 mg tablet 10 mg PO DAILY PRN allergies 01/11/25 01/11/25 Unknown memantine 5 mg tablet 5 mg PO BID 01/11/25 01/11/25 Unknown levetiracetam 250 mg tablet 250 mg PO BID 90 days #180 tabs 01/12/25 Unknown (Jimenez) Active Medications Generic Name Dose Route Start Last Admin Trade Name Leticia PRN Reason Stop Dose Admin Acetaminophen 650 mg 01/11/25 20:17 01/12/25 08:10 Acetaminophen 325 Mg Tab PO 02/10/25 20:16 650 mg Q4H PRN Administration pain/fever Ascorbic Acid 500 mg 01/12/25 09:00 01/18/25 08:18 Ascorbic Acid 500 Mg Tab PO 02/11/25 08:59 500 mg QAM DOUGLAS Administration Aspirin 81 mg 01/12/25 09:00 01/18/25 08:18 Aspirin 81 Mg Ectab PO 02/11/25 08:59 81 mg DAILY DOUGLAS Administration Colestipol HCl 1 gm 01/11/25 21:00 01/18/25 08:18 Colestipol Hcl 1 Gm Tab PO 02/10/25 20:59 1 gm BID DOUGLAS Administration Divalproex Sodium 500 mg 01/12/25 09:00 01/18/25 08:16 Divalproex Extended Release 500 Mg Tab PO 02/11/25 08:59 500 mg DAILY DOUGLAS Administration Donepezil HCl 10 mg 01/12/25 09:00 01/18/25 08:17 Donepezil Hcl 10 Mg Tab PO 02/11/25 08:59 10 mg QAM DOUGLAS Administration Ferrous Sulfate 325 mg 01/18/25 09:00 01/18/25 08:14 Ferrous Sulfate 325 Mg Tab PO 02/17/25 08:59 325 mg QAM DOUGLAS Administration Heparin Sodium (Porcine) 5,000 units 01/18/25 14:00 01/18/25 13:12 Heparin Sod 5,000 Unit/0.5 Ml Vial SQ 02/17/25 13:59 5,000 units Q8 DOUGLAS Administration Ceftriaxone Sodium 2,000 mg in 50 mls @ 100 mls/hr 01/15/25 16:00 01/18/25 15:38 Rocephin IV 01/25/25 15:59 Infused Q24H DOUGLAS Infusion Sodium Chloride 1,000 mls @ 80 mls/hr 01/18/25 18:30 01/18/25 18:45 Nss IV 01/19/25 06:59 80 mls/hr .[id number] DOUGLAS Administration Levetiracetam 250 mg 01/11/25 21:00 01/18/25 08:17 Levetiracetam 250 Mg Tab PO 02/10/25 20:59 250 mg BID DOUGLAS Administration Lidocaine 1 patch 01/12/25 12:45 01/18/25 08:15 Lidocaine 5% 1 Patch TD 02/11/25 12:44 1 patch QAM DOUGLAS Administration Loratadine 10 mg 01/11/25 20:59 01/18/25 08:17 Loratadine 10 Mg Tab PO 02/10/25 20:58 10 mg DAILY PRN Administration allergies Magnesium Oxide 400 mg 01/17/25 09:30 01/18/25 08:16 Magnesium Oxide 400 Mg Tab PO 02/16/25 09:29 400 mg BID DOUGLAS Administration Melatonin 6 mg 01/11/25 20:22 01/14/25 20:29 Melatonin 3 Mg Tab PO 02/10/25 20:21 6 mg HS PRN Administration Sleep Memantine 5 mg 01/11/25 21:00 01/18/25 08:18 Memantine Hcl 5 Mg Tab PO 02/10/25 20:59 5 mg BID DOUGLAS Administration Metoprolol Succinate 25 mg 01/11/25 21:00 01/18/25 08:17 Metoprolol Succ 25mg Ext Rel Tab PO 02/10/25 20:59 25 mg BID DOUGLAS Administration Miscellaneous 1 each 01/12/25 21:00 01/17/25 20:33 Remove Lidoderm Patch N/A 02/11/25 20:59 1 each DAILY@2100 DOUGLAS Administration Ondansetron HCl 4 mg 01/11/25 20:17 01/17/25 11:32 Ondansetron Inj 2 Mg/Ml 2 Ml Vial IV 02/10/25 20:16 4 mg Q6H PRN Administration Nausea Oxycodone HCl 5 mg 01/12/25 12:46 01/18/25 17:56 Oxycodone Hcl Ir 5 Mg Tab (Immediate Release) PO 01/26/25 12:45 5 mg Q8H PRN Administration Severe Pain (Scale 7, 8, 9,10) Pantoprazole Sodium 40 mg 01/12/25 09:00 01/18/25 08:18 Pantoprazole 40 Mg Tab PO 02/11/25 08:59 40 mg QAM DOUGLAS Administration Polyethylene Glycol 17 gm 01/14/25 21:06 01/18/25 08:22 Polyethylene (Miralax) 17 Gm Pack PO 02/13/25 21:05 17 gm DAILY PRN Administration Constipation Senna/Docusate Sodium 1 tab 01/14/25 21:30 01/18/25 08:26 Docusate Sodium/Senna 50/8.6mg Tab PO 02/13/25 21:29 1 tab QAM DOUGLAS Administration Sertraline HCl 25 mg 01/12/25 09:00 01/18/25 08:18 Sertraline Hcl 50 Mg Tablet PO 02/11/25 08:59 25 mg DAILY DOUGLAS Administration Vitamin D 50 mcg 01/15/25 09:00 01/18/25 08:17 Cholecalciferol 25 Mcg (1000 Units) Tab PO 02/14/25 08:59 50 mcg DAILY DOUGLAS Administration
[2025-01-18] MEDS: SODIUM CHLORIDE 0.9% 1,000 ML IV SCH (18:45)
[2025-01-19 01:57] LABS: Factor 5 Mutation NEGATIVE
[2025-01-19 06:58] LABS: Hematocrit (blood only) 28.7 % (37.0-47.0); Hemoglobin 8.9 g/dl (12.0-16.0); Mean Corpuscular Hemoglobin 31.0 pg (25.0-34.0); Mean Corpuscular Volume 100.0 fL (80.0-100.0); Platelet Count 311 K/uL (130-400); RDW Standard Deviation 54.4 fL (36.4-46.3); Red Blood Count 2.87 M/uL (4.20-5.40); White Blood Count 6.18 K/ul (4.8-10.8)
[2025-01-19 07:20] LABS: ANTI-Xa, UFH(UnfractionatedHep 0.10 IU/ml (0.3-0.7)
[2025-01-19 07:23] LABS: Anion Gap 6.0 (3-11); Blood Urea Nitrogen 9.0 mg/dl (6-23); Calcium 8.2 mg/dl (8.6-10.3); Carbon Dioxide 28.0 mmol/L (21-32); Chloride 104.0 mmol/L (98-107); Creatinine Clr Calc Pharmacy 63.2 ml/min; Glucose 100.0 mg/dl (70-99(Fasting)); Magnesium 2.0 mg/dl (1.7-2.4); Potassium 4.4 mmol/L (3.5-5.1); Sodium 138.0 mmol/L (136-145)
--- NOTE | 2025-01-19 10:04 | Ultrasound Report ---
BILATERAL LOWER EXTREMITY VENOUS DOPPLER CLINICAL HISTORY: Leg pain. Evaluate for deep venous thrombus. COMPARISON STUDY: No previous studies for comparison. TECHNIQUE: Sonography of the deep venous system of the bilateral lower extremities was performed. Co mpression and augmentation were evaluated. FINDINGS: The bilateral common femoral, superficial femoral and popliteal veins were compressible. A ugmentation was normal. Flow was shown within the deep calf vessels. Incidental note is made of a lianne ngated right popliteal fluid collection which measures 4.6 x 1.2 x 1.7 cm. This represents a small po pliteal cyst. IMPRESSION: 1. No evidence of deep venous thrombus within the bilateral lower extremities. 2. Small right popliteal cyst. ACT 112: Negative or not required by law. Electronically signed by: Greg Leal M.D. 01/19/2025 10:03 AM
--- NOTE | 2025-01-19 11:12 | Palliative Care Progress Note ---
Date of Service January 19, 2025 Assessment & Plan (1) Palliative care by specialist: Plan: Palliative care will continue to follow for ongoing GOC discussions and pt / family support. (2) Encounter for assessment of decision-making capacity: Plan: Patient continues to lack decisional capacity based on the inability to convey understanding of personal PMHx, current medical condition, treatment options nor the risks / benefits/ potential outcomes of accepting/declining those options, and inability to make decisions based on such knowledge. Hospital does not have written documentation of patient wishes concerning her chosen proxy for medical decisions. Per PA [id number], in absence of written documentation of patient wishes, pt's proxy for medical decisions would be her spouse Santos Oropeza. Pt's spouse Santos has previously shared that the pt has an advanced directive from more than ten years ago. He shared that the document names him as primary HCPOA and the two daughters as back up. He could not recall what other wishe might have been documented on form. I requested that Santos bring a copy to hospital to be added to patient's chart. He agreed. I helped them understand that the pt does currently require a MDM proxy/HCPOA and that per PA [id number], in absence of written documentation of patient wishes, pt's proxy for medical decisions would be Santos. Santos is willing to serve as HCPOA, but expressed intent to make any decisions together with the input of their daughters. Pt does currently require a proxy for medical decisions. (3) Counseling regarding goals of care: Plan: Met with pt's daughter at bedside from 08:30 - 09:00. She shared that the pt's spouse had spent yesterday visiting H and SNF options and that he is hopeful for discharge to [facility] for what she called "respite care". We discussed the longterm goals and she reinforced that the family intends to transition to hospice care once pt is discharged to intermission coordinator care. I discussed and helped her differentiate between intermission coordinator care placement and respite care. She qualified that the goal is not for the patient to return to her private residence as Santos cannot offer her the level of care and supervision required at home. She reiterated that the family wishes to transition to hospice level care on arrival at intermission coordinator care facility and hope that she will not need to relocate to different level of care in the future. She shared that Santos has understands and has verbalized this as well. they wish to avoid any future readmissions and not prolong life further but do wish to continue to optimize health and will accept PT/OT only if it may offer the patient increased independence/functional ability. We discussed that transition to comfort directed care with hospice team precludes any further PT/OT or life prolonging therapies. Spoke with pt's spouse Santos later in day. He shared that he spoke with a advertising account representative at [facility] who told him the pt is in line for next available bed for rehab there but he also has spoken with [facility] about a month to month respite admission. He shared that he ideally would like pt to go directly to [facility], but is willing to have her discharged to [facility] while awaiting a bed at [facility]. He shared that he is hopeful for ongoing physical therapy at this time to optimize her strength and independence with plan to transition to hospice care afterwards. This information has been discussed with DELFIN and Dr Smith, attending. Plan as above Admission and Anticipated Discharge Date Admission Date: January 11, 2025 Subjective Assessed pt at bedside. She was sleeping but easily aroused with gentle tactile stimuli, she denies any discomfort and drifted back to sleep. ANGELA. VSS. Dtr at bedside. Review of Systems Review of Systems: All systems reviewed & are unremarkable except as noted in Subjective Physical Exam Constitutional: well developed, + ill appearing, + thin and comfortable; no acute distress +expressive aphasia per baseline Eyes: PERRL, conjunctivae normal, anicteric sclerae ENMT: external ear and nose normal, oropharynx normal Neck: trachea midline, no thyromegaly Respiratory: normal respiratory effort, lungs clear to auscultation Cardiovascular: Rate/Rhythm: regular rate and regular rhythm Heart Sounds: normal S1 and normal S2 Gastrointestinal (Abdomen): normal bowel sounds, soft, nontender, no hepatosplenomegaly Skin: + turgor decreased and + pallor Neurologic: awake and + confused Speech / Cognition: + expressive aphasia Psychiatric: Orientation: alert Results & Data Vital Signs (Past 12 Hours) Vital Signs Temp Pulse Pulse Resp BP Pulse Ox O2 Del Method 01/19/25 07:45 36.8 C 97 H 20 113/61 91 Room Air 01/19/25 05:37 98 H 01/19/25 03:09 37.5 C 91 H 18 135/75 96 Nasal Cannula 01/19/25 00:05 85 O2 Flow Rate 01/19/25 07:45 01/19/25 05:37 01/19/25 03:09 2 01/19/25 00:05 Laboratory Results Abnormal lab results 01/19/25 01/19/25 Range/Units 06:26 06:34 RBC 2.87 L (4.20-5.40) M/uL Hgb 8.9 L (12.0-16.0) g/dl Hct 28.7 L (37.0-47.0) % MCHC 31.0 L (32.0-36.0) g/dL RDW Std Deviation 54.4 H (36.4-46.3) fL RDW Coeff of Martin 15.6 H (11.5-14.5) % Heparin Anti-Xa, Unfract 0.10 L (0.3-0.7) IU/ml Creatinine 0.57 L (0.6-1.2) mg/dl Glucose 100 H (70-99(Fasting)) mg/dl Calcium 8.2 L (8.6-10.3) mg/dl Diagnostic Findings Head CT 01/11/25 11:03 CT head/brain wo con CLINICAL HISTORY: 84 years-old Female with syncope. Acute syncope TECHNIQUE: Multiple axial CT images of the head were obtained without contrast. A dose lowering technique was utilized adhering to the principles of ALARA. CT DOSE: 625.8 mGy.cm COMPARISON: 09/14/2024 FINDINGS: No acute intracranial hemorrhage, midline shift, intracranial mass, hydrocephalus, territorial ischemia or abnormal extra-axial collection. Involutional changes with chronic microvascular ischemic disease. The calvarium is intact. The paranasal sinuses, mastoid air cells, and middle ear cavities are clear. IMPRESSION: No acute intracranial abnormality. ACT 112: Negative or not required by law. The above report was generated using voice recognition software. It may contain grammatical, syntax or spelling errors. Electronically signed by: Koko Villegas M.D. 01/11/2025 12:28 PM Abdomen/Pelvis CTA 01/11/25 15:30 Clinical history: Renal infarct Technique: Axial computed tomography images were obtained of the abdomen and pelvis after the administration of intravenous contrast according to the CT angiogram protocol No prior examination is available for comparison Findings: The abdominal aorta appears unremarkable with no sign of aneurysm or dissection. No stenosis is seen involving it. The celiac axis and superior mesenteric artery are patent with no stenosis identified. The inferior mesenteric artery is patent as well. There is no sign of renal artery stenosis. The iliac arteries appear unremarkable with no sign of aneurysm or stenosis. The visualized common femoral arteries appear unremarkable as well The liver is overall of normal size, attenuation, and contour with no sign of cirrhosis or significant fatty infiltration. No liver mass lesion is seen. The portal vein is patent. The gallbladder has been removed. There is mild bile duct dilatation that is likely due to the postcholecystectomy state The spleen is of normal size. No focal splenic lesion is evident. The pancreas appears normal with no sign of acute or chronic pancreatitis and no mass lesion noted. The pancreatic duct is of normal caliber. The adrenal glands appear unremarkable. No definite renal or proximal ureteral calculi are seen on this contrast-enhanced study. There is no hydronephrosis or perinephric stranding. There is an approximately 1.6 cm low-attenuation area in the cortex of the upper right kidney that could represent an infarct No adenopathy is seen. There is a small hiatal hernia. There is no sign of small bowel obstruction. There is diverticulosis without definite diverticulitis. No free intraperitoneal fluid or air is identified. No distal ureteral or bladder calculi are seen. No bladder mass lesion is evident. There is a partially calcified uterine leiomyoma. There is a 3.3 cm left ovarian cyst and there is a 1.9 cm right ovarian cyst The lungs bases appear clear. There is an L2 compression fracture, likely old. There is lumbar scoliosis and degenerative disc disease. No focal osseous lesion is seen Impression: 1. Normal-appearing abdominal aorta 2. No sign of renal or mesenteric artery stenosis 3. No apparent stenosis of the pelvic arteries 4. Low-attenuation area in the upper right kidney that could represent an infarct. Focal pyelonephritis is a less likely possibility. A renal mass is much less likely. A follow-up renal protocol CT with and without contrast could be considered in 3 months 5. Diverticulosis without definite diverticulitis 6. Uterine leiomyoma 7. Bilateral ovarian cysts, indeterminate in nature in this postmenopausal patient. A pelvic ultrasound is recommended for further evaluation 8. Small hiatal hernia ACT 112: Positive. There are findings on this exam that require communication between the performing entity and the patient following Patient Test Result Information Act ([place] ACT 112) guidelines. Electronically signed by Felix Richard 01-11-2025 4:11 PM Chest CTA 01/11/25 16:49 EXAMINATION: CT angio chest with contrast CLINICAL HISTORY: Renal infarction PRIORS: None TECHNIQUE: Contiguous axial images were obtained through the chest with the use of intravenous contrast. Sagittal and coronal reformations are supplied. FINDINGS: Dental amalgam creates significant beam hardening artifact. Motion artifact degrades image quality. The pulmonary arteries are well opacified. A possible filling defect is present in the right lower lobe segmental pulmonary artery, image 89 through 91, series 4 and corresponding sagittal image 20, series 401. No additional filling defect in the pulmonary arteries identified. No CT features of heart strain. Mild cardiomegaly noted. No pleural or pericardial effusion. Nonpathologically enlarged lymph nodes present in the mediastinum. Trachea and mainstem bronchi patent. No airspace consolidation, pneumothorax or dominant mass. Trachea is tortuous. No acute abnormality in the upper abdomen. Moderate degenerative change of the thoracic spine. IMPRESSION: 1. A segmental right lower lobe pulmonary embolism is identified, allowing for significant motion and beam hardening artifact, with no CT features of heart strain. ACT 112: Positive. There are findings on this examination that require communication between the performing entity and the patient following Patient Test Result Information Act ([place] ACT 112) guidelines. Electronically signed by Mita Magana 01-11-2025 6:35 PM Hip/Pelvis X-Ray 01/12/25 10:47 XR hip RT 2V w pelvis CLINICAL HISTORY: R hip pain COMPARISON: None FINDINGS: Urinary bladder is distended with retained contrast. No fracture or dislocation seen. No significant degenerative change at the hips. SI joints are unremarkable. IMPRESSION: No acute findings. ACT 112: Negative or not required by law. Electronically signed by: Dev Adrian M.D. 01/12/2025 12:10 PM Pelvis Ultrasound 01/12/25 15:21 ULTRASOUND PELVIS INDICATION: Pelvic pain TECHNIQUE: Grayscale and color Doppler ultrasound of the pelvis was performed transabdominally. COMPARISON: CT abdomen pelvis 1 day previous FINDINGS: Uterus: Uterus measures 7.2 x 2.9 x 3.6 cm No abnormal thickening of the endometrium. There is a 3.1 x 1.9 x 3.1 cm area with calcifications in the uterine fundus. Right ovary: Measures 2.7 x 1.8 x 2.0 cm. Normal vascularity is noted. There is a 1.8 x 1.9 x 1.6 cm simple cyst. Left ovary: Measures 3.4 x 3.8 x 3.1 cm. Normal vascularity is noted. There is a 3.4 x 2.5 x 2.8 cm simple cyst. Free fluid: Trace free fluid is noted. Other: None. IMPRESSION: Bilateral ovarian cystic lesions appear to represent simple cysts in this examination. No evidence of ovarian torsion. Uterine fundal fibroid. Electronically signed by Kyle Wilson 01-12-2025 9:46 PM Abdomen/Pelvis CT 01/17/25 09:25 CT SCAN OF THE ABDOMEN AND PELVIS WITH IV CONTRAST CLINICAL HISTORY: Drop in H&H. Evaluate for bleed. COMPARISON STUDY: CT of the abdomen and pelvis January 13, 2025. TECHNIQUE: Following the IV administration of 94 cc of Optiray 320, CT scan of the abdomen and pelvis is performed from the lung bases to the proximal femora. Images are reviewed in the axial, sagittal, and coronal planes. IV contrast was administered without complication. A dose lowering technique was utilized ad tom to the principles of ALARA. CT DOSE: 865.55 mGy.cm FINDINGS: Visualized portions of the lung bases are unremarkable. A small hiatal hernia is again noted. There is no pneumatosis, free air or portal venous gas. No significant biliary ductal dilatation status post cholecystectomy. Spleen, adrenal glands, left kidney and pancreas are normal. A wedge-shaped 2.1 cm hypoenhancing focus within the upper pole the right kidney is unchanged. There is no hydronephrosis. Colonic diverticulosis is present. No evidence for acute diverticulitis. There is no evidence for a bowel obstruction. Major vasculature is patent. A Bermeo balloon within the bladder is noted. The bladder is collapsed. Water attenuation bilateral adnexal lesions are indeterminate but favor cysts. These are unchanged. An inferior right gluteal hyperdense fluid collection has minimally increased in size since CT of January 13, 2025, measuring 7.6 x 7.5 cm, previously 7.6 x 6.7 cm. This is centered within the subcutaneous tissues. Adjacent smaller hematomas have also minimally increased in size. Minimal adjacent stranding also represents hemorrhage. There is no active extravasation. No new hematomas are present. L2 compression fracture is unchanged in appearance. This is likely subacute. IMPRESSION: 1. Minimal increase in size of a 7.6 x 7.5 cm inferior right gluteal hematoma since CT of January 13, 2025. Slight increase in size of adjacent smaller hematomas. No active extravasation. 2. No new sites of hemorrhage. 3. No change in a 2.1 cm wedge-shaped hypoenhancing focus within the right kidney. This favors a subacute infarct or less likely pyelonephritis. A renal protocol CT in 3 months to ensure resolution and exclude the less likely possibility of an underlying lesion is recommended. 4. Colonic diverticulosis. No evidence for diverticulitis. No bowel obstruction. ACT 112: Negative or not required by law. Electronically signed by: Greg Leal M.D. 01/17/2025 11:40 AM Venous Doppler Study 01/19/25 08:15 BILATERAL LOWER EXTREMITY VENOUS DOPPLER CLINICAL HISTORY: Leg pain. Evaluate for deep venous thrombus. COMPARISON STUDY: No previous studies for comparison. TECHNIQUE: Sonography of the deep venous system of the bilateral lower extremities was performed. Compression and augmentation were evaluated. FINDINGS: The bilateral common femoral, superficial femoral and popliteal veins were compressible. Augmentation was normal. Flow was shown within the deep calf vessels. Incidental note is made of a elongated right popliteal fluid collection which measures 4.6 x 1.2 x 1.7 cm. This represents a small popliteal cyst. IMPRESSION: 1. No evidence of deep venous thrombus within the bilateral lower extremities. 2. Small right popliteal cyst. ACT 112: Negative or not required by law. Electronically signed by: Greg Leal M.D. 01/19/2025 10:03 AM Medications Administered Current Inpatient Medications Acetaminophen (Acetaminophen 325 Mg Tab) 650 mg PO Q4H PRN PRN Reason: pain/fever Stop: 02/10/25 20:16 Last Admin: 01/12/25 08:10 Dose: 650 mg Ascorbic Acid (Ascorbic Acid 500 Mg Tab) 500 mg PO QAM DOUGLAS Stop: 02/11/25 08:59 Last Admin: 01/19/25 08:23 Dose: 500 mg Aspirin (Aspirin 81 Mg Ectab) 81 mg PO DAILY DOUGLAS Stop: 02/11/25 08:59 Last Admin: 01/19/25 08:23 Dose: 81 mg Colestipol HCl (Colestipol Hcl 1 Gm Tab) 1 gm PO BID DOUGLAS Stop: 02/10/25 20:59 Last Admin: 01/19/25 08:23 Dose: 1 gm Divalproex Sodium (Divalproex Extended Release 500 Mg Tab) 500 mg PO DAILY DOUGLAS Stop: 02/11/25 08:59 Last Admin: 01/19/25 08:22 Dose: 500 mg Donepezil HCl (Donepezil Hcl 10 Mg Tab) 10 mg PO QAM DOUGLAS Stop: 02/11/25 08:59 Last Admin: 01/19/25 08:23 Dose: 10 mg Ferrous Sulfate (Ferrous Sulfate 325 Mg Tab) 325 mg PO QAM ON LICENSE OF [facility] Stop: 02/17/25 08:59 Last Admin: 01/19/25 08:23 Dose: 325 mg Heparin Sodium (Porcine) (Heparin Sod 5,000 Unit/0.5 Ml Vial) 5,000 units SQ Q8 ON LICENSE OF [facility] Stop: 02/17/25 13:59 Last Admin: 01/19/25 06:03 Dose: 5,000 units Ceftriaxone Sodium (Rocephin) 2,000 mg in 50 mls @ 100 mls/hr IV Q24H ON LICENSE OF [facility] Stop: 01/25/25 15:59 Last Infusion: 01/18/25 15:38 Dose: Infused Acetaminophen (Ofirmev) 1,000 mg in 100 mls @ 400 mls/hr IV Q8H PRN PRN Reason: Pain Stop: 01/21/25 18:28 Levetiracetam (Levetiracetam 250 Mg Tab) 250 mg PO BID ON LICENSE OF [facility] Stop: 02/10/25 20:59 Last Admin: 01/19/25 08:23 Dose: 250 mg Lidocaine (Lidocaine 5% 1 Patch) 1 patch TD QAM ON LICENSE OF [facility] Stop: 02/11/25 12:44 Last Admin: 01/19/25 09:55 Dose: 1 patch Loratadine (Loratadine 10 Mg Tab) 10 mg PO DAILY PRN PRN Reason: allergies Stop: 02/10/25 20:58 Last Admin: 01/19/25 08:23 Dose: 10 mg Magnesium Hydroxide (Magnesium Hydroxide Susp 30 Ml Udc) 30 ml PO Q6H PRN PRN Reason: constipation Stop: 02/16/25 10:23 Magnesium Oxide (Magnesium Oxide 400 Mg Tab) 400 mg PO BID ON LICENSE OF [facility] Stop: 02/16/25 09:29 Last Admin: 01/19/25 08:23 Dose: 400 mg Melatonin (Melatonin 3 Mg Tab) 6 mg PO HS PRN PRN Reason: Sleep Stop: 02/10/25 20:21 Last Admin: 01/18/25 20:51 Dose: 6 mg Memantine (Memantine Hcl 5 Mg Tab) 5 mg PO BID ON LICENSE OF [facility] Stop: 02/10/25 20:59 Last Admin: 01/19/25 08:24 Dose: 5 mg Metoprolol Succinate (Metoprolol Succ 25mg Ext Rel Tab) 25 mg PO BID ON LICENSE OF [facility] Stop: 02/10/25 20:59 Last Admin: 01/19/25 08:23 Dose: 25 mg Miscellaneous (Remove Lidoderm Patch) 1 each N/A DAILY@2100 ON LICENSE OF [facility] Stop: 02/11/25 20:59 Last Admin: 01/18/25 20:53 Dose: 1 each Ondansetron HCl (Ondansetron Inj 2 Mg/Ml 2 Ml Vial) 4 mg IV Q6H PRN PRN Reason: Nausea Stop: 02/10/25 20:16 Last Admin: 01/17/25 11:32 Dose: 4 mg Oxycodone HCl (Oxycodone Hcl Ir 5 Mg Tab (Immediate Release)) 5 mg PO Q8H PRN PRN Reason: Severe Pain (Scale 7, 8, 9,10) Stop: 01/26/25 12:45 Last Admin: 01/18/25 17:56 Dose: 5 mg Pantoprazole Sodium (Pantoprazole 40 Mg Tab) 40 mg PO QAM ON LICENSE OF [facility] Stop: 02/11/25 08:59 Last Admin: 01/19/25 08:23 Dose: 40 mg Polyethylene Glycol (Polyethylene (Miralax) 17 Gm Pack) 17 gm PO DAILY PRN PRN Reason: Constipation Stop: 02/13/25 21:05 Last Admin: 01/18/25 08:22 Dose: 17 gm Senna/Docusate Sodium (Docusate Sodium/Senna 50/8.6mg Tab) 1 tab PO QAM ON LICENSE OF [facility] Stop: 02/13/25 21:29 Last Admin: 01/19/25 08:29 Dose: 1 tab Sertraline HCl (Sertraline Hcl 50 Mg Tablet) 25 mg PO DAILY ON LICENSE OF [facility] Stop: 02/11/25 08:59 Last Admin: 01/19/25 08:23 Dose: 25 mg Vitamin D (Cholecalciferol 25 Mcg (1000 Units) Tab) 50 mcg PO DAILY DOUGLAS Stop: 02/14/25 08:59 Last Admin: 01/19/25 08:23 Dose: 50 mcg PG Care Time/CCT Total # of Minutes Spent Total Time Spent with Patient: Total time spent is greater than 50% in coordination of care (as documented) at patient's floor/unit and/or counseling patient: Advanced Care Planning 06192 Advanced Care Planning 30 Min Coding [place] [address] SUB INP/OBS CARE 08/14MIN Patient Type Established Medical Decision Making Low Complexity Diagnoses Palliative care by specialist Z51.5 Encounter for assessment of decision-making capacity Z00.8 Counseling regarding goals of care Z71.89 Additional Codes Advanced Care Planning - 93195 Advanced Care Planning 30 Min: 49688 Advanced Care Planning 30 Min ([id number])
--- NOTE | 2025-01-19 12:36 | Hospitalist Progress Note ---
Date of Service January 19, 2025 Assessment & Plan (1) Syncope: (2) Infarction of kidney: (3) Diarrhea: (4) Myoclonus: (5) Dementia: (6) Primary progressive aphasia: (7) HTN (hypertension): (8) Anxiety: Plan Ms Oropeza is an 84 year old female with PMH significant for dementia, primary progressive aphasia, myoclonus, peripheral artery disease, history of symptomatic PVCs, hypertension, GERD, PMR, osteoporosis, idiopathic peripheral neuropathy, history of Guillain-[place] syndrome, IBS with diarrhea, and anxiety who presented to the ED on 01/11/2025 after having a syncopal episode at home. Patient was found to have pulmonary emboli. Patient's course complicated by acute blood loss anemia iso right gluteal hematoma #Renal infarct #Bilateral Pulmonary Emboli CT abdomen and pelvis revealed infarct of superior pole right kidney measuring 2cm CTA abdomen and pelvis revealed low attenuation area in upper right kidney that could represent an infarct; normal abdominal aorta, no renal artery stenosis, no pelvic artery stenosis CTA chest noting pulmonary Emboli Echo with small patent foramen ovale Hypercoagulable labs pending A1C and lipid panel normal Heparin drip started initiallly with precipitous drop in hgb HGB at 8.8-8.9,Started on subcu heparin on 01/19/2025; plan to continue subcu for 2 more days and possibly switched over to IV heparin if hemoglobin continues to be stable. #Right gluteal Hematoma #Acute Blood Loss Anemia Hgb drop to 10 from 15 on the 01/11, then further to 8-9 CT abd/pelvis repeated stat on 01/13, noted the following: "interval layering hematoma posterior inferior right gluteal subcutaneous tissues measuring 8 x 7 cm axially by 6 cm craniocaudad. No vascular contrast extravasation seen to suggest ongoing hemorrhage." Monitor while on anticoagulation #Syncope Likely due to dehydration/diarrhea EKG NSR Head CT negative Labs and UA unremarkable Orthostatic vitals PT/OT consults- recommending acute rehab on dc #Abnormal CT scan findings Calcified Uterine leiomyoma with noted bilateral ovarian cysts that measure up to 3.4cm on the left and 2cm on the right - recommended pelvic ultrasound which confirmed ovarian cysts. Atherosclerosis of aorta without aneurysm- will need PCP followup as an outpt Small hiatal hernia-monitor for any feeding issues L2 superior endplate compression deformity without retropulsion - recommend follow up with orthospine, pain control prn #IBS with diarrhea Follows with [facility] last seen 01/05/2025 Continue colestipol #Hypertension Continue losartan #History of PVCs Continue metoprolol #Dementia #Myoclonus Follows with [facility] last seen 12/07/2024 Continue memantine and donepezil Continue keppra and divalproex #PMR Follows with [facility] last seen 12/10/2024 #GERD Continue omeprazole DVT Prophylaxis: Heparin subq, escalate to therapeutic as tolerated Code Status: DNR/DNI PCP: Dr Kris Gutierrez Dispo: rehab. Patient needs to closely monitor for recurrence of hematoma while on heparin. Possibly discharge in next few days depending on clinical course. Plan of care discussed with daughter and at bedside. Answer questions/queries Time spent evaluating patient, direct bedside care, chart review, placing orders, interpretation of diagnostic studies, discussion with consultants, patient, and family members, as well as other required patient management a ctivities is 50 minutes Please note the above document was generated using voice recognition software. It may contain grammatical, syntax or spelling errors. Any formal questions or concerns about the content, text or information contained within the body of this dictation should be directly addressed to the provider for clarification Admission and Anticipated Discharge Date Admission Date: January 11, 2025 Subjective Patient seen and examined at bedside. She is lying in the bed comfortably; denies any pain or discomfort. She is saturating well in room air; no significant events overnight. Review of Systems Review of Systems: All systems reviewed & are unremarkable except as noted in Subjective Physical Exam Physical Exam: Constitutional: WD/WN, vitals as above, NAD, sitting up in bed, pleasant, conversing easily Respiratory: normal respiratory effort, lungs clear to auscultation, no wheeze, rales, rhonchi. Normal insp/exp effort, no accessory muscle use Cardiovascular: RRR, no murmur, no edema Vessels: no JVD or carotid bruit Chest: normal inspection of chest Abdomen: normal bowel sounds, soft, nontender, no hepatosplenomegaly Musculoskeletal: Right buttock with bruise; slightly tender. Neurologic: PERRL, EOMI, accommodation nl, no face palsy, no dysarthria CN's II- XI intact bilaterally and moves all extremities Psychiatric: A+Ox3, euthymic affect Results & Data Results & Data Vital Signs (Past 12 Hours) Vital Signs Temp Pulse Pulse Resp BP BP Pulse Ox 01/19/25 11:28 37 C 96 H 18 99/65 L 92 01/19/25 07:45 36.8 C 97 H 20 113/61 91 01/19/25 05:37 98 H 01/19/25 03:09 37.5 C 91 H 18 135/75 96 O2 Del Method O2 Flow Rate 01/19/25 11:28 Room Air 01/19/25 07:45 Room Air 01/19/25 05:37 01/19/25 03:09 Nasal Cannula 2
[2025-01-19] MEDS: ACETAMINOPHEN 1,000 MG/100 ML VIAL IV PRN (16:59)
[2025-01-20 06:03] LABS: Hematocrit (blood only) 29.7 % (37.0-47.0); Hemoglobin 9.5 g/dl (12.0-16.0); Immature Granulocytes # (auto) 0.28 K/uL (0.01-0.20); Immature Granulocytes % (auto) 5.0 %; Mean Corpuscular Hemoglobin 31.5 pg (25.0-34.0); Mean Corpuscular Volume 98.3 fL (80.0-100.0); Platelet Count 349 K/uL (130-400); RDW Standard Deviation 55.9 fL (36.4-46.3); Red Blood Count 3.02 M/uL (4.20-5.40); White Blood Count 5.64 K/ul (4.8-10.8)
[2025-01-20 08:20] LABS: INR 0.9 (0.9-1.1); Partial Thromboplastin Time 27 Seconds (21-31); Prothrombin Time 10.3 Seconds (9.0-12.0)
[2025-01-20] MEDS: Heparin IV Adult Wt-Based Low-Dose *NO* INITIAL Bolus Protocol IV STA (09:05)
[2025-01-20] MEDS: HEPARIN 25000 UNIT/500 ML D5W 25,000 UNITS/500 ML BAG IV SCH (09:05)
--- NOTE | 2025-01-20 11:12 | Palliative Family Discussion ---
Date of Service January 20, 2025 Patient Directed Conference Time of Meetin:00-[] Participants:Jesus Alberto Cade AGACN Patient participation: no Patient Support System: spouse and two adult children Other Healthcare Provider Participation: none Meeting Location: 2E conference room Advanced Directive available: no If yes, descriptors: The patient's surrogate medical decision maker participated: spouse present Legally authorized health care proxy: Patient continues to lack decisional [place] based on the inability to convey understanding of personal PMHx, current medical condition, treatment options nor the risks / benefits/ potential outcomes of accepting/declining those options, and inability to make decisions based on such knowledge. Hospital does not have written documentation of patient wishes concerning her chosen proxy for medical decisions. Per PA [id number], in absence of written documentation of patient wishes, pt's proxy for medical decisions would be her spouse Shay Fuchs. Pt's spouse Shay has previously shared that the pt has an advanced directive from more than ten years ago. He shared that the document names him as primary HCPOA and the two daughters as back up. He could not recall what other wishe might have been documented on form. I requested that Shay bring a copy to hospital to be added to patient's chart. He agreed. I helped them understand that the pt does currently require a MDM proxy/HCPOA and that per PA [id number], in absence of written documentation of patient wishes, pt's proxy for medical decisions would be Shay. Shay is willing to serve as HCPOA, but expressed intent to make any decisions together with the input of their daughters. Pt does currently require a proxy for medical decisions. Other surrogate: n/a A family meeting was held for LANDON FUCHS. This meeting was necessary for determining the appropriate course of treatment. Topics of Discussion Topics of Discussion: 1. goals of care 2. comfort directed care 3. hospice Other Content of Meetin. Opportunity given for participants to speak and ask questions. 2. Participants were assured of attention to patient comfort. 3. Reassurance provided. 4. Support was provided for informed, good-jesus decisions. 5. Emotions expressed by family were acknowledged and addressed. 6. Follow-up Outpatient: n/a 7. Plan of Care: [facility]ODUCER, may require SNF placment Met with pt's spouse Hernandez and their daughter in 2E conference room, pt's other daughter Feli joined telephonically. Pt's spouse shared that he had spoken with Dr Smith and now has concerns that the treatments we are offering the patient are not making her better but only prolonging her dying process. We again disussed that her dementia is a progressively debilitating terminal disease and her cognitive and functional decline will continue to progress in spite of agressive medical treatments for her other issues. We discussed the increased risk of additional blood clots given her sedentary level of activity. We discussed heparin infusion putting her at increased risk of extension of her hematoma or bleeding from other areas Shay asked if the patient would be e xpected to decline more quickly if we transition to comfort directed care. Lengthy conversation held concerning level of care and expected progression of dementia. Both daughters encouraged shay that they would support him regardless of his decision. Shay shared that he believes that "Landon had given up physically and spiritually several months ago". He shared that he has not been supporting his 's choice to stop fighting because he did not want to accept that she is dying. Ultimately, Shay said that he would want to allow his a peaceful with no more struggles. Family had questions about hospice care and if pt could remain in hospital if they transition to comfort directed care. Shay and his daughters expressed understanding that with transtition of LEAD PRODUCER all diagnostics would stop, life prolonging therapies would not be offered and all interventions would be geared toward palliating physical or emotional distress in order to offer a peaceful and dignified . We discussed criteria for GIP hospice and that pt does NOT currently fit criteria. Shay shared that he will work with case management to determine appropriate placement for ongoing hospice care. Discussed changes pt may move through in the dying process including but not limited to sleeping more, disorientation when awake, restlessness, diminished senses/inability to respond to stimulus although ability to be aware of them remains intact longer, and changes in body temperatures, skin changes/mottling/cyanosis, respiratory pattern changes, and oral secretions. Family verbalized understanding. The goal is to assure a peaceful . When a person facing the end of life rallies, they seem to become "more stable" - may want to talk or even begin taking PO; this phenomenon is usually s een as a sudden burst of energy before . This period of perking up can be accompanied by such a notable change in mental clarity that is often referred to as terminal lucidity. This change in cognition and behavior goes against everything families learn about the physical signs that the end of life is near. It is important to note that evidence-based data is elusive, if nonexistent. Theories support that it may be a search for a final, strong connection. Also, as organs shut down, they can release a steroid like compound that briefly rouses the body - in the specific case of brain tumors, swelling occurs in the confined space of the skull. The edema shrinks as EOL care patients are weaned off food and drink, waking up the brain a bit. Families and caregivers may grasp at what seems to be a turnaround in a loved ones health, however, the EOL Rally is a hallmark pre- sign. It is not uncommon for patients to show improvement before : they may want to talk while others may become restless or act as if they need to start preparing for a trip. Some patients will become more relaxed yet remain tuned in to what is going on around them, others will show signs of physical stability when, seconds before, they seemed on the verge of letting go. A rally can last for a few moments or even days. Short or long, these temporary improvements can have a profound effect on juan a ed ones who are keeping ramirez. Like a moment of clarity for someone who has dementia, a rally is one last opportunity to connect with a loved one. Each persons experience is unique and impossible to predict with total accuracy. Life is full of questions, and some of them simply are not meant to be answered. Read more: [email or web address]//well/t [email or web address]-kfbkmhs-ci-vzi-ik-bcsn-rallies.html Time Involved in Meeting: I spent 75 minutes overall addressing this case: 10 in medical data review/discussion with referring provider(s) and/or preparation for the visit 40 in direct interaction with the patient's family 40 Advance Care Planning/Goals of Care discussions as detailed above in note (must be >16min) 15 in subsequent review and synthesis of assessment and plan 10 in communicating with other providers regarding the patient's kenzie e: attendiing Dr Smith, BSRN, CM
--- NOTE | 2025-01-20 11:54 | Hospitalist Progress Note ---
Date of Service January 20, 2025 Assessment & Plan (1) Syncope: (2) Infarction of kidney: (3) Diarrhea: (4) Myoclonus: (5) Dementia: (6) Primary progressive aphasia: (7) HTN (hypertension): (8) Anxiety: Plan Ms Oropeza is an 84 year old female with PMH significant for dementia, primary progressive aphasia, myoclonus, peripheral artery disease, history of symptomatic PVCs, hypertension, GERD, PMR, osteoporosis, idiopathic peripheral neuropathy, history of Guillain-[place] syndrome, IBS with diarrhea, and anxiety who presented to the ED on 01/11/2025 after having a syncopal episode at home. Patient was found to have pulmonary emboli. Patient's course complicated by acute blood loss anemia iso right gluteal hematoma #Renal infarct #Bilateral Pulmonary Emboli CT abdomen and pelvis revealed infarct of superior pole right kidney measuring 2cm CTA abdomen and pelvis revealed low attenuation area in upper right kidney that could represent an infarct; normal abdominal aorta, no renal artery stenosis, no pelvic artery stenosis CTA chest noting pulmonary Emboli Echo with small patent foramen ovale A1C and lipid panel normal Heparin drip started initiallly with precipitous drop in hgb Patient started on heparin drip low-dose without bolus on 01/20/2025; monitor hemoglobin #Right gluteal Hematoma #Acute Blood Loss Anemia Hgb drop to 10 from 15 on the 01/11, then further to 8-9 CT abd/pelvis repeated stat on 01/13, noted the following: "interval layering hematoma posterior inferior right gluteal subcutaneous tissues measuring 8 x 7 cm axially by 6 cm craniocaudad. No vascular contrast extravasation seen to suggest ongoing hemorrhage." Monitor while on anticoagulation #Syncope Likely due to dehydration/diarrhea EKG NSR Head CT negative Labs and UA unremarkable Orthostatic vitals PT/OT consults- #Abnormal CT scan findings Calcified Uterine leiomyoma with noted bilateral ovarian cysts that measure up to 3.4cm on the left and 2cm on the right - recommended pelvic ultrasound which confirmed ovarian cysts. Atherosclerosis of aorta without aneurysm- will need PCP followup as an outpt Small hiatal hernia-monitor for any feeding issues L2 superior endplate compression deformity without retropulsion - recommend follow up with orthospine, pain control prn #IBS with diarrhea Follows with [facility] last seen 01/05/2025 Continue colestipol #Hypertension Continue losartan #History of PVCs Continue metoprolol #Dementia #Myoclonus Follows with [facility] last seen 12/07/2024 Continue memantine and donepezil Continue keppra and divalproex #PMR Follows with [facility] last seen 12/10/2024 #GERD Continue omeprazole Goals of care discussed with patient daughter and ; they acknowledge that patient's functional status has declined substantially since the hospitalization and her cognitive impairment has also worsened. They want her to be comfortable; they are planning to meet with palliative care today and after discussion; possibly transition her to comfort care. DVT Prophylaxis: Heparin subq, escalate to therapeutic as tolerated Code Status: DNR/DNI PCP: Dr Kris Gutierrez Time spent evaluating patient, direct bedside care, chart review, placing orders, interpretation of diagnostic studies, discussion with consultants, patient, and family members, as well as other required patient management activities is 50 minutes Please note the above document was generated using voice recognition software. It may contain grammatical, syntax or spelling errors. Any formal questions or concerns about the content, text or information contained within the body of this dictation should be directly addressed to the provider for clarification Admission and Anticipated Discharge Date Admission Date: January 11, 2025 Subjective Patient seen and examined at bedside. She is awake; oriented to self. She reports that she does not have pain at the moment. Family at bedside. Review of Systems Review of Systems: All systems reviewed & are unremarkable except as noted in Subjective Physical Exam Physical Exam: Constitutional: WD/WN, vitals as above, NAD, sitting up in bed, pleasant, conversing easily Respiratory: normal respiratory effort, lungs clear to auscultation, no wheeze, rales, rhonchi. Normal insp/exp effort, no accessory muscle use Cardiovascular: RRR, no murmur, no edema Vessels: no JVD or carotid bruit Chest: normal inspection of chest Abdomen: normal bowel sounds, soft, nontender, no hepatosplenomegaly Musculoskeletal: Right buttock with bruise; slightly tender. Neurologic: PERRL, EOMI, accommodation nl, no face palsy, no dysarthria CN's II- XI intact bilaterally and moves all extremities Psychiatric: A+Ox3, euthymic affect Results & Data Results & Data Vital Signs (Past 12 Hours) Vital Signs Temp Pulse Pulse Resp BP BP Pulse Ox 07/03/25 11:22 37.1 C 98 H 20 102/65 93 01/20/25 09:40 105 H 01/20/25 08:00 36.8 C 96 H 20 111/68 91 01/20/25 04:00 37.0 C 99 H 18 118/64 91 01/19/25 23:53 36.8 C 88 18 113/72 92 O2 Del Method 01/20/25 11:22 Room Air 01/20/25 09:40 01/20/25 08:00 Room Air 01/20/25 04:00 Room Air 01/19/25 23:53 Room Air
[2025-01-20] MEDS ORDERED: DOCUSATE SODIUM/SENNA 50/8.6MG TAB PO PRN (12:45)
[2025-01-20] MEDS ORDERED: ONDANSETRON INJ 2 MG/ML 2 ML VIAL IV PRN ×2 (13:16→13:29)
[2025-01-20] MEDS ORDERED: HYDROmorphone INJ 0.5 MG/0.5 ML SYR IV PRN (13:16)
[2025-01-20] MEDS ORDERED: HYOSCYAMINE SULFATE 0.125 MG TAB SL PRN (13:29)
[2025-01-20] MEDS ORDERED: ONDANSETRON 4 MG OD TAB SL PRN (13:29)
[2025-01-20] MEDS ORDERED: ATROPINE SULFATE 1% OP SOLN 5 ML BTL SL PRN (13:29)
[2025-01-20] MEDS ORDERED: HALOPERIDOL ORAL SOLN 2 MG/ML PO PRN (13:29)
[2025-01-21] MEDS: MoRPHine SULFATE 10 MG/0.5 ML UDP PO PRN (12:59)
[2025-01-21] MEDS: MoRPHine SULFATE 2 MG/ML CARP IV PRN (14:16)
--- NOTE | 2025-01-21 14:17 | Hospitalist Progress Note ---
Date of Service January 21, 2025 Assessment & Plan (1) Syncope: (2) Infarction of kidney: (3) Diarrhea: (4) Myoclonus: (5) Dementia: (6) Primary progressive aphasia: (7) HTN (hypertension): (8) Anxiety: Plan Ms Oropeza is an 84 year old female with PMH significant for dementia, primary progressive aphasia, myoclonus, peripheral artery disease, history of symptomatic PVCs, hypertension, GERD, PMR, osteoporosis, idiopathic peripheral neuropathy, history of Guillain-[place] syndrome, IBS with diarrhea, and anxiety who presented to the ED on 01/11/2025 after having a syncopal episode at home. Patient was found to have pulmonary emboli. Patient's course complicated by acute blood loss anemia iso right gluteal hematoma . Patient transition over to comfort care on 01/20/2025. #Renal infarct #Bilateral Pulmonary Emboli #Right gluteal Hematoma #Acute Blood Loss Anemia Comfort care Patient presented to the hospital with renal infarct, PE. She was found to have drop in her hemoglobin; CT showed gluteal subcutaneous hematoma. Patient was being treated for PE with blood thinners with close monitoring of the hemoglobin. Discussion was done with patient's family regarding goals of care by palliative care. Family reported gradual decline in patient's cognition and functional status over the course of last several months. Patient was switched over to comfort care on January 20, 2025 after discussion with the family. Continue comfort measures, no lab work, no IV medication Pain control Minimize disturbance Please note the above document was generated using voice recognition software. It may contain grammatical, syntax or spelling errors. Any formal questions or concerns about the content, text or information contained within the body of this dictation should be directly addressed to the provider for clarification Admission and Anticipated Discharge Date Admission Date: January 11, 2025 Subjective Patient seen and examined at bedside. She is lying in the bed comfortably; not in distress. Reports that she is comfortable and denies any pain or discomfort Family at bedside Review of Systems Review of Systems: All systems reviewed & are unremarkable except as noted in Subjective Physical Exam Physical Exam: Constitutional: WD/WN, vitals as above, NAD, sitting up in bed, pleasant, conversing easily Respiratory: normal respiratory effort, lungs clear to auscultation, no wheeze, rales, rhonchi. Normal insp/exp effort, no accessory muscle use Cardiovascular: RRR, no murmur, no edema Vessels: no JVD or carotid bruit Chest: normal inspection of chest Abdomen: normal bowel sounds, soft, nontender, no hepatosplenomegaly Musculoskeletal: Right buttock with bruise; slightly tender. Neurologic: PERRL, EOMI, accommodation nl, no face palsy, no dysarthria CN's II- XI intact bilaterally and moves all extremities Psychiatric: A+Ox3, euthymic affect Results & Data Results & Data Vital Signs (Past 12 Hours) Vital Signs Pulse BP O2 Del Method 01/21/25 09:16 90 94/62 L 01/21/25 07:35 Room Air
[2025-01-21] MEDS: ACETAMINOPHEN 1,000 MG/100 ML VIAL IV PRN (16:53)
--- NOTE | 2025-01-22 11:28 | Hospitalist Progress Note ---
Date of Service January 22, 2025 Assessment & Plan (1) Syncope: (2) Infarction of kidney: (3) Diarrhea: (4) Myoclonus: (5) Dementia: (6) Primary progressive aphasia: (7) HTN (hypertension): (8) Anxiety: Plan Ms Oropeza is an 84 year old female with PMH significant for dementia, primary progressive aphasia, myoclonus, peripheral artery disease, history of symptomatic PVCs, hypertension, GERD, PMR, osteoporosis, idiopathic peripheral neuropathy, history of Guillain-[place] syndrome, IBS with diarrhea, and anxiety who presented to the ED on 01/11/2025 after having a syncopal episode at home. Patient was found to have pulmonary emboli. Patient's course complicated by acute blood loss anemia iso right gluteal hematoma . Patient transition over to comfort care on 01/20/2025. #Renal infarct #Bilateral Pulmonary Emboli #Right gluteal Hematoma #Acute Blood Loss Anemia Comfort care Patient presented to the hospital with renal infarct, PE. She was found to have drop in her hemoglobin; CT showed gluteal subcutaneous hematoma. Patient was being treated for PE with blood thinners with close monitoring of the hemoglobin. Discussion was done with patient's family regarding goals of care by palliative care. Family reported gradual decline in patient's cognition and functional status over the course of last several months. Patient was switched over to comfort care on January 20, 2025 after discussion with the family. Continue comfort measures, no lab work, no IV medication other than comfort Pain control Minimize disturbance Please note the above document was generated using voice recognition software. It may contain grammatical, syntax or spelling errors. Any formal questions or concerns about the content, text or information contained within the body of this dictation should be directly addressed to the provider for clarification Admission and Anticipated Discharge Date Admission Date: January 11, 2025 Subjective Patient seen and examined at bedside. She is comfortable; not in distress. She is awake and able to interact. Review of Systems Review of Systems: All systems reviewed & are unremarkable except as noted in Subjective Physical Exam Physical Exam: Constitutional: comfortable Respiratory: normal respiratory effort, lungs clear to auscultation, no wheeze, rales, rhonchi. Normal insp/exp effort, no accessory muscle use Cardiovascular: RRR, no murmur, no edema Vessels: no JVD or carotid bruit Chest: normal inspection of chest Abdomen: normal bowel sounds, soft, nontender, no hepatosplenomegaly Musculoskeletal: Right buttock with bruise; slightly tender. Neurologic: PERRL, EOMI, accommodation nl, no face palsy, no dysarthria CN's II- XI intact bilaterally and moves all extremities Results & Data Results & Data Vital Signs (Past 12 Hours) Vital Signs Pulse BP O2 Del Method 01/22/25 08:00 92 H 90/62 L 01/22/25 07:20 Room Air
[2025-01-22] MEDS: ACETAMINOPHEN 1,000 MG/100 ML VIAL IV SCH (14:32)
[2025-01-22 20:11] VITALS: RESP 18; TEMP 97.7; O2SAT 92
--- NOTE | 2025-01-23 10:36 | Hospitalist Progress Note ---
Date of Service January 23, 2025 Assessment & Plan (1) Syncope: (2) Infarction of kidney: (3) Diarrhea: (4) Myoclonus: (5) Dementia: (6) Primary progressive aphasia: (7) HTN (hypertension): (8) Anxiety: Plan Ms Oropeza is an 84 year old female with PMH significant for dementia, primary progressive aphasia, myoclonus, peripheral artery disease, history of symptomatic PVCs, hypertension, GERD, PMR, osteoporosis, idiopathic peripheral neuropathy, history of Guillain-[place] syndrome, IBS with diarrhea, and anxiety who presented to the ED on 01/11/2025 after having a syncopal episode at home. Patient was found to have pulmonary emboli. Patient's course complicated by acute blood loss anemia iso right gluteal hematoma . Patient transition over to comfort care on 01/20/2025. #Renal infarct #Bilateral Pulmonary Emboli #Right gluteal Hematoma #Acute Blood Loss Anemia Comfort care Patient presented to the hospital with renal infarct, PE. She was found to have drop in her hemoglobin; CT showed gluteal subcutaneous hematoma. Patient was being treated for PE with blood thinners with close monitoring of the hemoglobin. Discussion was done with patient's family regarding goals of care by palliative care. Family reported gradual decline in patient's cognition and functional status over the course of last several months. Patient was switched over to comfort care on January 20, 2025 after discussion with the family. Continue comfort measures, no lab work, no IV medication other than comfort Pain control Minimize disturbance Discussed with , agreeable with plan. he is looking at different SNFs to transfer the patient. Please note the above document was generated using voice recognition software. It may contain grammatical, syntax or spelling errors. Any formal questions or concerns about the content, text or information contained within the body of this dictation should be directly addressed to the provider for clarification Admission and Anticipated Discharge Date Admission Date: January 11, 2025 Subjective Patient seen and examined. She reports she is comfortable; not in any distress. Review of Systems Review of Systems: All systems reviewed & are unremarkable except as noted in Subjective Physical Exam Physical Exam: Constitutional: comfortable Respiratory: normal respiratory effort, lungs clear to auscultation, no wheeze, rales, rhonchi. Normal insp/exp effort, no accessory muscle use Cardiovascular: RRR, no murmur, no edema Vessels: no JVD or carotid bruit Chest: normal inspection of chest Abdomen: normal bowel sounds, soft, nontender, no hepatosplenomegaly Musculoskeletal: Right buttock with bruise; slightly tender. Neurologic: PERRL, EOMI, accommodation nl, no face palsy, no dysarthria CN's II- XI intact bilaterally and moves all extremities Results & Data Results & Data Vital Signs (Past 12 Hours) Vital Signs Pulse BP O2 Del Method 01/23/25 08:52 102 H 117/77 01/23/25 07:20 Room Air
[2025-01-24 08:54] VITALS: BP 114/67; PULSE 100
--- NOTE | 2025-01-24 11:41 | Hospitalist Progress Note ---
Date of Service January 24, 2025 Assessment & Plan (1) Syncope: (2) Infarction of kidney: (3) Diarrhea: (4) Myoclonus: (5) Dementia: (6) Primary progressive aphasia: (7) HTN (hypertension): (8) Anxiety: Plan Ms Oropeza is an 84 year old female with PMH significant for dementia, primary progressive aphasia, myoclonus, peripheral artery disease, history of symptomatic PVCs, hypertension, GERD, PMR, osteoporosis, idiopathic peripheral neuropathy, history of Guillain-[place] syndrome, IBS with diarrhea, and anxiety who presented to the ED on 01/11/2025 after having a syncopal episode at home. Patient was found to have pulmonary emboli. Patient's course complicated by acute blood loss anemia iso right gluteal hematoma . Patient transition over to comfort care on 01/20/2025. #Renal infarct #Bilateral Pulmonary Emboli #Right gluteal Hematoma #Acute Blood Loss Anemia Comfort care Patient presented to the hospital with renal infarct, PE. She was found to have drop in her hemoglobin; CT showed gluteal subcutaneous hematoma. Patient was being treated for PE with blood thinners with close monitoring of the hemoglobin. Discussion was done with patient's family regarding goals of care by palliative care. Family reported gradual decline in patient's cognition and functional status over the course of last several months. Patient was switched over to comfort care on January 20, 2025 after discussion with the family. Continue comfort measures, no lab work, no IV medication other than comfort Pain control Minimize disturbance Discussed with , agreeable with plan. he is looking at different SNFs to transfer the patient. Please note the above document was generated using voice recognition software. It may contain grammatical, syntax or spelling errors. Any formal questions or concerns about the content, text or information contained within the body of this dictation should be directly addressed to the provider for clarification Admission and Anticipated Discharge Date Admission Date: January 11, 2025 Subjective Patient seen at bedside. She is sleeping comfortably; reports that her pain is well-controlled at this time. Review of Systems Review of Systems: All systems reviewed & are unremarkable except as noted in Subjective Physical Exam Physical Exam: Constitutional: comfortable Respiratory: normal respiratory effort, lungs clear to auscultation, no wheeze, rales, rhonchi. Normal insp/exp effort, no accessory muscle use Cardiovascular: RRR, no murmur, no edema Vessels: no JVD or carotid bruit Chest: normal inspection of chest Abdomen: normal bowel sounds, soft, nontender, no hepatosplenomegaly Musculoskeletal: Right buttock with bruise; slightly tender. Neurologic: PERRL, EOMI, accommodation nl, no face palsy, no dysarthria CN's II- XI intact bilaterally and moves all extremities Results & Data Results & Data Vital Signs (Past 12 Hours) Vital Signs Pulse BP O2 Del Method 01/24/25 08:54 100 H 114/67 01/24/25 07:20 Room Air
--- NOTE | 2025-01-24 16:14 | Palliative Care Progress Note ---
Date of Service January 24, 2025 Assessment & Plan (1) Palliative care by specialist: Plan: Palliative care will continue to follow for ongoing GOC discussions and pt / family support. (2) Encounter for assessment of decision-making capacity: Plan: Patient continues to lack decisional capacity based on the inability to convey understanding of personal PMHx, current medical condition, treatment options nor the risks / benefits/ potential outcomes of accepting/declining those options, and inability to make decisions based on such knowledge. Hospital does not have written documentation of patient wishes concerning her chosen proxy for medical decisions. Per PA [id number], in absence of written documentation of patient wishes, pt's proxy for medical decisions would be her spouse Santos Oropeza. Pt's spouse Santos has previously shared that the pt has an advanced directive from more than ten years ago. He shared that the document names him as primary HCPOA and the two daughters as back up. He could not recall what other wishe might have been documented on form. I requested that Santos bring a copy to hospital to be added to patient's chart. He agreed. I helped them understand that the pt does currently require a MDM proxy/HCPOA and that per PA [id number], in absence of written documentation of patient wishes, pt's proxy for medical decisions would be Santos. Santos is willing to serve as HCPOA, but expressed intent to make any decisions together with the input of their daughters. Pt does currently require a proxy for medical decisions. (3) Counseling regarding goals of care: Plan: Met with pt's daughter at bedside from 08:30 - 09:00. She shared that the pt's spouse has been looking at [facility] and SNF options and that he is awaiting a call back from two possibilities. She shared that the pt seems to have gotten more lethargic and has waxing and waning PO intake over weekend. Objectively I believe pt is more pale and lethargic with increased WOB today. Pt has had increasing requirement for PRN palliaitve medications and still has significant WOB and tachypnea. Spoke with pt's spouse Santos later in day. He shared that he will continue working with CM for placement, but remains hopeful that the pt will qualify for GIP. I shared that pt does not currently fit criteria for GIP, but I believe she may be transitioning to more active phase of dying. Santos is in agreement that the pt is deteriorating. Discussed that [place] and CM will continue to attempt placement but in meantime if pt has significant decline she may be reevaluated for GIP. Anticipatory guidance offered. Discussed changes pt may move through in the dying process including but not limited to sleeping more, disorientation when awake, restlessness, diminished senses/inability to respond to stimulus although ability to be aware of them remains intact longer, and changes in body temperatures, skin changes/mottling/cyanosis, respiratory pattern changes, and oral secretions. Family verbalized understanding. The goal is to assure a peaceful . This information has been discussed with CM and Dr Smith, attending. (4) Comfort measures only status: Plan: transitioned to [facility] on 01/20/25, on family request. (5) Need for comfort care: Plan: Comfort plan of care parameters: 1. Patient/Family want hospice added to their care. 2. NO rehab/PT/OT 3. Strictly End of Life care only 4. NO escalation of care: do not increase oxygen, escalate therapies, etc. The focus is on comfort through end of life, assure this is accomplished with aggressive symptom management (i.e. relief of dyspnea, pain, etc.) 5. NO return to hospital 6. NO labs, imaging, surgery 7. Oral intake as desired for comfort and pleasure: NO dietary restriction, Allow permissive aspiration, do not withhold food or drink for concern of aspiration and allow PO for pleasure and comfort. 8. If difficulty urinating/commode/bedpan, ok to place Bermeo catheter for comfort/hygiene/skin protection AND/OR Continue Bermeo catheter for comfort/hygiene/skin protection 9. NO: calorie counts, artificial nutrition, feeding tubes or IV fluids EOL Symptom manamgement: Pain/dyspnea/tachypnea morphine 2mg IVP PRN [id number] Consider titratable morphine drip if pt requires >3 PRN doses in under two consecutive hours. Nausea/vomitting zofran 4mg IVP q4h PRN Agitation ativan 0.5mg IVP q4h PRN Hyperactive delirium haldol 5mg IVP q6h PRN Secretions - if repositioning not effective robinul 0.4mg IV q4h PRN atropine SL 3 drops Q1h PRN Nursing care: Discontinue all medications not directed towards comfort. Detether pt from IV tubing, monitor cables, and check vitals once per shift. Please continue HFNC and titrate down as able for patient comfort. Use medications above PRN for dyspnea/tachypnea and do not increase oxygen once titrated down. Assess q1h for pain/dyspnea and treat accordingly. Plan as above Admission and Anticipated Discharge Date Admission Date: January 11, 2025 Subjective Assessed pt at bedside, She was transitioned to [facility] on 01/20/25. Pt is drowsy but arousable and c/o back pain and dry mouth. Respiratory effort slightly increased, rate 22/min and shallow. She does appear subjectively more pale and lethargic than last week, with extremities cool to touch. Pt's daughter and spouse were both at bedside today. Review of Systems Review of Systems: All systems reviewed & are unremarkable except as noted in Subjective Physical Exam Constitutional: well developed, + ill appearing, + thin and comfortable; no acute distress +expressive aphasia per baseline Eyes: PERRL, conjunctivae normal, anicteric sclerae ENMT: external ear and nose normal, oropharynx normal Neck: trachea midline, no thyromegaly Cardiovascular: Rate/Rhythm: regular rate and regular rhythm Heart Sounds: normal S1 and normal S2 Gastrointestinal (Abdomen): normal bowel sounds, soft, nontender, no hepatosplenomegaly Skin: + turgor decreased and + pallor Neurologic: awake and + confused Speech / Cognition: + expressive aphasia Psychiatric: Orientation: alert Results & Data Vital Signs (Past 12 Hours) Vital Signs Pulse BP O2 Del Method 01/24/25 08:54 100 H 114/67 01/24/25 07:20 Room Air Laboratory Results No further labs or diagnostics in concert with comfort directed care. Diagnostic Findings No further labs or diagnostics in concert with comfort directed care. Medications Administered Current Inpatient Medications Acetaminophen (Acetaminophen 325 Mg Tab) 650 mg PO Q4H PRN PRN Reason: pain/fever Stop: 02/10/25 20:16 Last Admin: 01/12/25 08:10 Dose: 650 mg Atropine Sulfate (Atropine Sulfate 1% Op Soln 5 Ml Btl) 4 drops SL Q1H PRN PRN Reason: Secretions or pulm congestion Stop: 02/19/25 13:28 Colestipol HCl (Colestipol Hcl 1 Gm Tab) 1 gm PO BID DOUGLAS Stop: 02/10/25 20:59 Last Admin: 01/24/25 09:54 Dose: 1 gm Divalproex Sodium (Divalproex Extended Release 500 Mg Tab) 500 mg PO DAILY DOUGLAS Stop: 02/11/25 08:59 Last Admin: 01/24/25 08:49 Dose: 500 mg Donepezil HCl (Donepezil Hcl 10 Mg Tab) 10 mg PO QAM DOUGLAS Stop: 02/11/25 08:59 Last Admin: 01/24/25 08:49 Dose: 10 mg Glycopyrrolate (Glycopyrrolate 0.2 Mg/Ml Vial) 0.4 mg IV Q4H PRN PRN Reason: Rattling Secretions or Pulm Congestion Stop: 02/19/25 13:28 Haloperidol (Haloperidol Oral Soln 2 Mg/Ml) 0.5 mg PO Q4H PRN PRN Reason: Anxiety/Agitation Stop: 02/19/25 13:28 Hydromorphone HCl (Hydromorphone Inj 0.5 Mg/0.5 Ml Syr) 0.5 mg IV Q15M PRN PRN Reason: Pain or Respiratory Distress Stop: 02/03/25 13:15 Hyoscyamine (Hyoscyamine Sulfate 0.125 Mg Tab) 0.125 mg SL Q4H PRN PRN Reason: Secretions or Pulm Congestion Stop: 02/19/25 13:28 Levetiracetam (Levetiracetam 250 Mg Tab) 250 mg PO BID DOUGLAS Stop: 02/10/25 20:59 Last Admin: 01/24/25 08:49 Dose: 250 mg Lidocaine (Lidocaine 5% 1 Patch) 1 patch TD QAM DOUGLAS Stop: 02/11/25 12:44 Last Admin: 01/24/25 08:49 Dose: 1 patch Loratadine (Loratadine 10 Mg Tab) 10 mg PO DAILY PRN PRN Reason: allergies Stop: 02/10/25 20:58 Last Admin: 01/19/25 08:23 Dose: 10 mg Lorazepam (Lorazepam 2 Mg/1 Ml Vial) 0.5 mg IV Q4H PRN PRN Reason: Anxiety/Agitation Stop: 02/19/25 13:28 Magnesium Hydroxide (Magnesium Hydroxide Susp 30 Ml Udc) 30 ml PO Q6H PRN PRN Reason: constipation Stop: 02/16/25 10:23 Melatonin (Melatonin 3 Mg Tab) 6 mg PO HS PRN PRN Reason: Sleep Stop: 02/10/25 20:21 Last Admin: 01/21/25 21:15 Dose: 6 mg Memantine (Memantine Hcl 5 Mg Tab) 5 mg PO BID [facility] Stop: 02/10/25 20:59 Last Admin: 01/24/25 08:49 Dose: 5 mg Metoprolol Succinate (Metoprolol Succ 25mg Ext Rel Tab) 25 mg PO BID [facility] Stop: 02/10/25 20:59 Last Admin: 01/24/25 08:54 Dose: 25 mg Miscellaneous (Remove Lidoderm Patch) 1 each N/A DAILY@2100 [facility] Stop: 02/11/25 20:59 Last Admin: 01/23/25 20:48 Dose: 1 each Morphine Sulfate (Morphine Sulfate 10 Mg/0.5 Ml Udp) 5 mg PO Q2H PRN PRN Reason: Pain or Respiratory Distress Stop: 02/03/25 13:28 Ondansetron HCl (Ondansetron Inj 2 Mg/Ml 2 Ml Vial) 4 mg IV Q4H PRN PRN Reason: Nausea &/or Vomiting Stop: 02/19/25 13:28 Ondansetron HCl (Ondansetron 4 Mg Od Tab) 4 mg SL Q4H PRN PRN Reason: Nausea &/or Vomiting Stop: 02/19/25 13:28 Oxycodone HCl (Oxycodone Hcl Ir 5 Mg Tab (Immediate Release)) 5 mg PO Q4H PRN PRN Reason: Severe Pain (Scale 7, 8, 9,10) Stop: 02/07/25 13:55 Last Admin: 01/24/25 15:23 Dose: 5 mg Pantoprazole Sodium (Pantoprazole 40 Mg Tab) 40 mg PO QAM [facility] Stop: 02/11/25 08:59 Last Admin: 01/24/25 08:50 Dose: 40 mg Polyethylene Glycol (Polyethylene (Miralax) 17 Gm Pack) 17 gm PO DAILY PRN PRN Reason: Constipation Stop: 02/13/25 21:05 Last Admin: 01/18/25 08:22 Dose: 17 gm Senna/Docusate Sodium (Docusate Sodium/Senna 50/8.6mg Tab) 1 tab PO QAM PRN PRN Reason: constipation Stop: 02/13/25 21:29 Sertraline HCl (Sertraline Hcl 50 Mg Tablet) 25 mg PO DAILY DOUGLAS Stop: 02/11/25 08:59 Last Admin: 01/24/25 08:50 Dose: 25 mg PG Care Time/CCT Total # of Minutes Spent Total Time Spent with Patient: Total time spent is greater than 50% in coordination of care (as documented) at patient's floor/unit and/or counseling patient: Advanced Care Planning 17559 Advanced Care Planning 30 Min [place] [address] SUB INP/OBS CARE 2/35MIN Patient Type Established History Expanded Problem Focused Exam Expanded Problem Focused Diagnoses Palliative care by specialist Z51.5 Encounter for assessment of decision-making capacity Z00.8 Counseling regarding goals of care Z71.89 Comfort measures only status Z51.5 Need for comfort care Additional Codes Advanced Care Planning - 02245 Advanced Care Planning 30 Min: 82788 Advanced Care Planning 30 Min ([id number])
[2025-01-24] MEDS: MoRPHine SULFATE 10 MG/0.5 ML UDP PO PRN (18:13)
[2025-01-24] MEDS: HYDROmorphone INJ 0.5 MG/0.5 ML SYR IV PRN (22:25)
[2025-01-25] MEDS: GLYCOPYRROLATE 0.2 MG/ML VIAL IV PRN (11:44)
--- NOTE | 2025-01-25 14:33 | Hospitalist Progress Note ---
Date of Service January 25, 2025 Assessment & Plan (1) Syncope: (2) Infarction of kidney: (3) Diarrhea: (4) Myoclonus: (5) Dementia: (6) Primary progressive aphasia: (7) HTN (hypertension): (8) Anxiety: Plan Ms Oropeza is an 84 year old female with PMH significant for dementia, primary progressive aphasia, myoclonus, peripheral artery disease, history of symptomatic PVCs, hypertension, GERD, PMR, osteoporosis, idiopathic peripheral neuropathy, history of Guillain-[place] syndrome, IBS with diarrhea, and anxiety who presented to the ED on 01/11/2025 after having a syncopal episode at home. Patient was found to have pulmonary emboli. Patient's course complicated by acute blood loss anemia iso right gluteal hematoma . Patient transition over to comfort care on 01/20/2025. #Renal infarct #Bilateral Pulmonary Emboli #Right gluteal Hematoma #Acute Blood Loss Anemia Comfort care Patient presented to the hospital with renal infarct, PE. She was found to have drop in her hemoglobin; CT showed gluteal subcutaneous hematoma. Patient was being treated for PE with blood thinners with close monitoring of the hemoglobin. Discussion was done with patient's family regarding goals of care by palliative care. Family reported gradual decline in patient's cognition and functional status over the course of last several months. Patient was switched over to comfort care on January 20, 2025 after discussion with the family. Continue comfort measures, no lab work, no IV medication other than comfort Pain control Minimize disturbance Plan for inpatient hospice evaluation today given increased needs of IV medication for comfort. Please note the above document was generated using voice recognition software. It may contain grammatical, syntax or spelling errors. Any formal questions or concerns about the content, text or information contained within the body of this dictation should be directly addressed to the provider for clarification Admission and Anticipated Discharge Date Admission Date: January 11, 2025 Subjective Patient requiring more frequent medication for comfort. She is not able to take p.o. medications; currently on IV meds. Review of Systems Review of Systems: All systems reviewed & are unremarkable except as noted in Subjective Physical Exam Physical Exam: Constitutional: comfortable; sleeping. not in distress Respiratory: normal respiratory effort, lungs clear to auscultation, no wheeze, rales, rhonchi. Normal insp/exp effort, no accessory muscle use Cardiovascular: RRR, no murmur, no edema Vessels: no JVD or carotid bruit Chest: normal inspection of chest Abdomen: normal bowel sounds, soft, nontender, no hepatosplenomegaly Musculoskeletal: Right buttock with bruise; slightly tender. Neurologic: PERRL, EOMI, accommodation nl, no face palsy, no dysarthria CN's II- XI intact bilaterally and moves all extremities Results & Data Results & Data Vital Signs (Past 12 Hours) Vital Signs O2 Del Method 01/25/25 08:05 Room Air
[2025-01-25] MEDS: HYDROmorphone INJ 1 MG/ML SYRINGE IV PRN (15:36)
--- NOTE | 2025-01-25 15:47 | Palliative Care Progress Note ---
Date of Service January 25, 2025 Assessment & Plan (1) Palliative care by specialist: Plan: Palliative care will continue to follow for ongoing GOC discussions and pt / family support. (2) Encounter for assessment of decision-making capacity: Plan: Patient continues to lack decisional capacity based on the inability to convey understanding of personal PMHx, current medical condition, treatment options nor the risks / benefits/ potential outcomes of accepting/declining those options, and inability to make decisions based on such knowledge. Hospital does not have written documentation of patient wishes concerning her chosen proxy for medical decisions. Per PA [id number], in absence of written documentation of patient wishes, pt's proxy for medical decisions would be her spouse Santos Oropeza. Pt's spouse Santos has previously shared that the pt has an advanced directive from more than ten years ago. He shared that the document names him as primary HCPOA and the two daughters as back up. He could not recall what other wishe might have been documented on form. I requested that Santos bring a copy to hospital to be added to patient's chart. He agreed. I helped them understand that the pt does currently require a MDM proxy/HCPOA and that per PA [id number], in absence of written documentation of patient wishes, pt's proxy for medical decisions would be Santos. Santos is willing to serve as HCPOA, but expressed intent to make any decisions together with the input of their daughters. Pt does currently require a proxy for medical decisions. (3) Counseling regarding goals of care: Plan: Met with pt's daughter and spouse at bedside from 10:30 - 11:00. Anticipatory guidance reinforced with family. Discussed changes pt may move through in the dying process including but not limited to sleeping more, disorientation when awake, restlessness, diminished senses/inability to respond to stimulus although ability to be aware of them remains intact longer, and changes in body temperatures, skin changes/mottling/cyanosis, respiratory pattern changes, and oral secretions. Family verbalized understanding. The goal is to assure a peaceful . Discussed that pt appears to be transitioning to active phase of dying and requiring more frequent PRN medications for comfort. Discussed potential evaluation for GIP hospice and encouraged family visitation as time may be short, hours to days. 01/24:She shared that the pt's spouse has been looking at [facility] and [facility] options and that he is awaiting a call back from two possibilities. She shared that the pt seems to have gotten more lethargic and has waxing and waning PO intake over weekend. Objectively I believe pt is more pale and lethargic with increased WOB today. Pt has had increasing requirement for PRN palliaitve medications and still has significant WOB and tachypnea. Spoke with pt's spouse Santos later in day. He shared that he will continue working with CM for placement, but remains hopeful that the pt will qualify for GIP. I shared that pt does not currently fit criteria for GIP, but I believe she may be transitioning to more active phase of dying. Santos is in agreement that the pt is deteriorating. Discussed that [place] and CM will continue to attempt placement but in meantime if pt has significant decline she may be reevaluated for GIP. Anticipatory guidance offered. Discussed changes pt may move through in the dying process including but not limited to sleeping more, disorientation when awake, restlessness, diminished senses/inability to respond to stimulus although ability to be aware of them remains intact longer, and changes in body temperatures, skin changes/mottling/cyanosis, respiratory pattern changes, and oral secretions. Family verbalized understanding. The goal is to assure a peaceful . This information has been discussed with CM and Dr Smith, attending. (4) Comfort measures only status: Plan: transitioned to PRINTER HELPER on 01/20/25, on family request. (5) Need for comfort care: Plan: Comfort plan of care parameters: 1. Patient/Family want hospice added to their care. 2. NO rehab/PT/OT 3. Strictly End of Life care only 4. NO escalation of care: do not increase oxygen, escalate therapies, etc. The focus is on comfort through end of life, assure this is accomplished with aggressive symptom management (i.e. relief of dyspnea, pain, etc.) 5. NO return to hospital 6. NO labs, imaging, surgery 7. Oral intake as desired for comfort and pleasure: NO dietary restric tion, Allow permissive aspiration, do not withhold food or drink for concern of aspiration and allow PO for pleasure and comfort. 8. If difficulty urinating/commode/bedpan, ok to place Bermeo catheter for comfort/hygiene/skin protection AND/OR Continue Bermeo catheter for comfort/hygiene/skin protection 9. NO: calorie counts, artificial nutrition, feeding tubes or IV fluids EOL Symptom manamgement: Pain/dyspnea/tachypnea dilaudid 0.5mg IVP PRN [id number] Consider titratable dilaudid drip if pt requires >3 PRN doses in under two consecutive hours. Nausea/vomitting zofran 4mg IVP q4h PRN Agitation ativan 0.5mg IVP q4h PRN Hyperactive delirium haldol 5mg IVP q6h PRN Secretions - if repositioning not effective robinul 0.4mg IV q4h PRN atropine SL 3 drops Q1h PRN Seizures- ativan 2mg q30min PRN Nursing care: Discontinue all medications not directed towards comfort. Detether pt from IV tubing, monitor cables, and check vitals once per shift. Please continue HFNC and titrate down as able for patient comfort. Use medications above PRN for dyspnea/tachypnea and do not increase oxygen once titrated down. Assess q1h for pain/dyspnea and treat accordingly. Plan as above Admission and Anticipated Discharge Date Admission Date: January 11, 2025 Subjective Assessed pt at bedside, She was transitioned to PRINTER HELPER on 01/20/25. Pt is unresponsive to verbal and gentle tactile stimuli, did not attempt to awaken in concert with comfort directed care. Respiratory effort increased, paradoxical mvmt and rate 22/min and shallow. She is having frequent short periods of apnea. She does appear subjectively more pale/ashen today, with extremities cool to touch. Pt's daughter and spouse were both at bedside today. Pt has had significant increase in PRN requirements, respiratory pattern and color changes c/w imminent . Request placed for [facility] hosp[facility] evaluation. Review of Systems Review of Systems: Unobtainable due to cognitive status Physical Exam Constitutional: well developed, + acute distress, + ill appearing, + thin and comfortable +expressive aphasia per baseline Eyes: PERRL, conjunctivae normal, anicteric sclerae ENMT: external ear and nose normal, oropharynx normal Neck: trachea midline, no thyromegaly Respiratory: + labored breathing, + uses accessory mu scles, + prolonged expiratory phase and + paradoxical thoraco-abdominal movement frequent brief periods of apnea Cardiovascular: Rate/Rhythm: regular rate and regular rhythm Heart Sounds: normal S1 and normal S2 Gastrointestinal (Abdomen): normal bowel sounds, soft, nontender, no hepatosplenomegaly Skin: + turgor decreased and + pallor Neurologic: moves all extremities; + not awake Speech / Cognition: + expressive aphasia Psychiatric: Orientation: alert Results & Data Vital Signs (Past 12 Hours) Vital Signs O2 Del Method 01/25/25 08:05 Room Air Laboratory Results No further labs or diagnostics in concert with comfort directed care. Diagnostic Findings No further labs or diagnostics in concert with comfort directed care. Medications Administered Current Inpatient Medications Atropine Sulfate (Atropine Sulfate 1% Op Soln 5 Ml Btl) 4 drops SL Q1H PRN PRN Reason: Secretions or pulm congestion Stop: 02/19/25 13:28 Colestipol HCl (Colestipol Hcl 1 Gm Tab) 1 gm PO BID [facility] Stop: 02/10/25 20:59 Last Admin: 01/25/25 09:29 Dose: Not Given Divalproex Sodium (Divalproex Extended Release 500 Mg Tab) 500 mg PO DAILY [facility] Stop: 02/11/25 08:59 Last Admin: 01/25/25 09:29 Dose: Not Given Glycopyrrolate (Glycopyrrolate 0.2 Mg/Ml Vial) 0.4 mg IV Q4H PRN PRN Reason: Rattling Secretions or Pulm Congestion Stop: 02/19/25 13:28 Last Admin: 01/25/25 11:44 Dose: 0.4 mg Haloperidol (Haloperidol Oral Soln 2 Mg/Ml) 0.5 mg PO Q4H PRN PRN Reason: Anxiety/Agitation Stop: 02/19/25 13:28 Hydromorphone HCl (Hydromorphone Inj 0.5 Mg/0.5 Ml Syr) 0.5 mg IV Q15M PRN PRN Reason: Pain or Respiratory Distress Stop: 02/03/25 13:15 Last Admin: 01/25/25 14:53 Dose: 0.5 mg Hydromorphone HCl (Hydromorphone Inj 1 Mg/Ml Syringe) 1 mg IV Q30M PRN PRN Reason: Pain, dyspnea Stop: 02/08/25 15:04 Hydromorphone HCl (Hydromorphone Bolus From Bag) 0.5 mg IV Q15M PRN PRN Reason: Comfort Care Parameters Stop: 02/08/25 15:26 Hyoscyamine (Hyoscyamine Sulfate 0.125 Mg Tab) 0.125 mg SL Q4H PRN PRN Reason: Secretions or Pulm Congestion Stop: 02/19/25 13:28 Hydromorphone HCl (Dilaudid) 100 mg in 100 mls @ 0.5 mls/hr IV .Q96H [facility]; Protocol Stop: 02/08/25 15:29 Levetiracetam (Levetiracetam 250 Mg Tab) 250 mg PO BID [facility] Stop: 02/10/25 20:59 Last Admin: 01/25/25 09:29 Dose: Not Given Lidocaine (Lidocaine 5% 1 Patch) 1 patch TD QAM [facility] Stop: 02/11/25 12:44 Last Admin: 01/25/25 09:30 Dose: Not Given Lorazepam (Lorazepam 2 Mg/1 Ml Vial) 1 mg IV Q4H PRN PRN Reason: Anxiety/Agitation Stop: 02/19/25 13:28 Magnesium Hydroxide (Magnesium Hydroxide Susp 30 Ml Udc) 30 ml PO Q6H PRN PRN Reason: constipation Stop: 02/16/25 10:23 Metoprolol Succinate (Metoprolol Succ 25mg Ext Rel Tab) 25 mg PO BID [facility] Stop: 02/10/25 20:59 Last Admin: 01/25/25 09:29 Dose: Not Given Miscellaneous (Remove Lidoderm Patch) 1 each N/A DAILY@2100 [facility] Stop: 02/11/25 20:59 Last Admin: 01/24/25 20:15 Dose: Not Given Miscellaneous (Stat Iv Infusion Titration Per Protocol) 1 each N/A NOW STA Stop: 01/25/25 15:28 Ondansetron HCl (Ondansetron Inj 2 Mg/Ml 2 Ml Vial) 4 mg IV Q4H PRN PRN Reason: Nausea &/or Vomiting Stop: 02/19/25 13:28 Pantoprazole Sodium (Pantoprazole 40 Mg Tab) 40 mg PO QAM [facility] Stop: 02/11/25 08:59 Last Admin: 01/25/25 09:29 Dose: Not Given Polyethylene Glycol (Polyethylene (Miralax) 17 Gm Pack) 17 gm PO DAILY PRN PRN Reason: Constipation Stop: 02/13/25 21:05 Last Admin: 01/18/25 08:22 Dose: 17 gm Senna/Docusate Sodium (Docusate Sodium/Senna 50/8.6mg Tab) 1 tab PO QAM PRN PRN Reason: constipation Stop: 02/13/25 21:29 PG Care Time/CCT Total # of Minutes Spent Total Time Spent with Patient: Total time spent is greater than 50% in coordination of care (as documented) at patient's floor/unit and/or counseling patient: Advanced Care Planning 77303 Advanced Care Planning 30 Min [place] [address] SUB INP/OBS CARE 3/50MIN Patient Type Established History Expanded Problem Focused Exam Expanded Problem Focused Medical Decision Making Moderate Complexity Diagnoses Palliative care by specialist Z51.5 Encounter for assessment of decision-making capacity Z00.8 Counseling regarding goals of care Z71.89 Comfort measures only status Z51.5 Need for comfort care Additional Codes Advanced Care Planning - 33652 Advanced Care Planning 30 Min: [id number] Advanced Care Planning 30 Min ([id number])
[2025-01-25] MEDS: HYDROmorphone 100 MG/100 ML BAG IV SCH (15:53)
[2025-01-25] MEDS: STAT IV Infusion **Titration per Protocol STA (16:04)
[2025-01-25] MEDS: HYDROmorphone BOLUS from BAG IV PRN (16:19)
--- NOTE | 2025-01-26 13:12 | Palliative Care Progress Note ---
Date of Service January 26, 2025 Assessment & Plan (1) Palliative care by specialist: Plan: Palliative care will continue to follow for ongoing GOC discussions and pt / family support. (2) Encounter for assessment of decision-making capacity: Plan: Patient continues to lack decisional capacity based on the inability to convey understanding of personal PMHx, current medical condition, treatment options nor the risks / benefits/ potential outcomes of accepting/declining those options, and inability to make decisions based on such knowledge. Hospital does not have written documentation of patient wishes concerning her chosen proxy for medical decisions. Per PA [id number], in absence of written documentation of patient wishes, pt's proxy for medical decisions would be her spouse Santos Oropeza. Pt's spouse Santos has previously shared that the pt has an advanced directive from more than ten years ago. He shared that the document names him as primary HCPOA and the two daughters as back up. He could not recall what other wishe might have been documented on form. I requested that Santos bring a copy to hospital to be added to patient's chart. He agreed. I helped them understand that the pt does currently require a MDM proxy/HCPOA and that per PA [id number], in absence of written documentation of patient wishes, pt's proxy for medical decisions would be Santos. Santos is willing to serve as HCPOA, but expressed intent to make any decisions together with the input of their daughters. Pt does currently require a proxy for medical decisions. (3) Counseling regarding goals of care: Plan: 01/26: goals of care clearly established pt now comfort care requiring a dilaudid continuous infusion, awaiting evaluation for GIP hospice. 01/25: Met with pt's daughter and spouse at bedside from 10:30 - 11:00. Anticipatory guidance reinforced with family. Discussed changes pt may move through in the dying process including but not limited to sleeping more, disorientation when awake, restlessness, diminished senses/inability to respond to stimulus although ability to be aware of them remains intact longer, and changes in body temperatures, skin changes/mottling/cyanosis, respiratory pattern changes, and oral secretions. Family verbalized understanding. The goal is to assure a peaceful . Discussed that pt appears to be transitioning to active phase of dying and requiring more frequent PRN medications for comfort. Discussed potential evaluation for GIP hospice and encouraged family visitation as time may be short, hours to days. 01/24:She shared that the pt's spouse has been looking at [facility] and [facility] options and that he is awaiting a call back from two possibilities. She shared that the pt seems to have gotten more lethargic and has waxing and waning PO intake over weekend. Objectively I believe pt is more pale and lethargic with increased WOB today. Pt has had increasing requirement for PRN palliaitve medications and still has significant WOB and tachypnea. Spoke with pt's spouse Santos later in day. He shared that he will continue working with CM for placement, but remains hopeful that the pt will qualify for GIP. I shared that pt does not currently fit criteria for GIP, but I believe she may be transitioning to more active phase of dying. Santos is in agreement that the pt is deteriorating. Discussed that [place] and CM will continue to attempt placement but in meantime if pt has significant decline she may be reevaluated for GIP. Anticipatory guidance offered. Discussed changes pt may move through in the dying process including but not limited to sleeping more, disorientation when awake, restlessness, diminished senses/inability to respond to stimulus although ability to be aware of them remains intact longer, and changes in body temperatures, skin changes/mottling/cyanosis, respiratory pattern changes, and oral secretions. Family verbalized understanding. The goal is to assure a peaceful . (4) Comfort measures only status: Plan: transitioned to TECHNICAL PROFESSIONAL on 01/20/25, on family request. (5) Need for comfort care: Plan: Comfort plan of care parameters: 1. Patient/Family want hospice added to their care. 2. NO rehab/PT/OT 3. Strictly End of Life care only 4. NO escalation of care: do not increase oxygen, escalate therapies, etc. The focus is on comfort through end of life, assure this is accomplished with aggressive symptom management (i.e. relief of dyspnea, pain, etc.) 5. NO return to hospital 6. NO labs, imaging, surgery 7. Oral intake as desired for comfort and pleasure: NO dietary restriction, Allow permissive aspiration, do not withhold food or drink for concern of aspiration and allow PO for pleasure and comfort. 8. If difficulty urinating/commode/bedpan, ok to place Bermeo catheter for comfort/hygiene/skin protection AND/OR Continue Bermeo catheter for comfort/hygiene/skin protection 9. NO: calorie counts, artificial nutrition, feeding tubes or IV fluids EOL Symptom manamgement: Pain/dyspnea/tachypnea dilaudid 0.5mg IVP PRN [id number] Continue dilaudid drip titrate per protocol Nausea/vomitting zofran 4mg IVP q4h PRN Agitation ativan 0.5mg IVP q4h PRN Hyperactive delirium haldol 5mg IVP q6h PRN Secretions - if repositioning not effective robinul 0.4mg IV q4h PRN atropine SL 3 drops Q1h PRN Seizures- Keppra 250 mg IV Q24H [facility] ativan 2mg q30min PRN Nursing care: Discontinue all medications not directed towards comfort. Detether pt from IV tubing, monitor cables, and check vitals once per shift. Please continue HFNC and titrate down as able for patient comfort. Use medications above PRN for dyspnea/tachypnea and do not increase oxygen once titrated down. Assess q1h for pain/dyspnea and treat accordingly. Plan as above Admission and Anticipated Discharge Date Admission Date: January 11, 2025 Subjective Assessed pt at bedside, She was transitioned to TECHNICAL PROFESSIONAL on 01/20/25. Pt is unresponsive to verbal and gentle tactile stimuli, did not attempt to awaken in concert with comfort directed care. Respiratory effort increased with accessory muscle use and rate 24/min and shallow. She is having frequent short periods of apnea. She does appear pale/ashen today, with extremities cool to touch. Pt's daughter was at bedside today. Pt has had significant PRN requirements requiring dilaudid infusion overnight, respiratory pattern and color changes c/w imminent . Request placed for [facility] hospice evaluation. Review of Systems Review of Systems: Unobtainable due to cognitive status Physical Exam Constitutional: well developed, + acute distress, + ill appearing, + thin and comfortable +expressive aphasia per baseline Eyes: PERRL, conjunctivae normal, anicteric sclerae ENMT: external ear and nose normal, oropharynx normal Neck: trachea midline, no thyromegaly Respiratory: + labored breathing, + uses accessory mu scles, + prolonged expiratory phase and + paradoxical thoraco-abdominal movement frequent brief periods of apnea Cardiovascular: Rate/Rhythm: regular rate and regular rhythm Heart Sounds: normal S1 and normal S2 Gastrointestinal (Abdomen): normal bowel sounds, soft, nontender, no hepatosplenomegaly Skin: + turgor decreased and + pallor Neurologic: moves all extremities; + not awake Speech / Cognition: + expressive aphasia Psychiatric: Orientation: alert Results & Data Vital Signs (Past 12 Hours) Vital Signs O2 Del Method 01/26/25 08:15 Room Air Laboratory Results No further labs or diagnostics in concert with comfort directed care. Diagnostic Findings No further labs or diagnostics in concert with comfort directed care. Medications Administered Current Inpatient Medications Atropine Sulfate (Atropine Sulfate 1% Op Soln 5 Ml Btl) 4 drops SL Q1H PRN PRN Reason: Secretions or pulm congestion Stop: 02/19/25 13:28 Colestipol HCl (Colestipol Hcl 1 Gm Tab) 1 gm PO BID [facility] Stop: 02/10/25 20:59 Last Admin: 01/26/25 06:57 Dose: Not Given Divalproex Sodium (Divalproex Extended Release 500 Mg Tab) 500 mg PO DAILY [facility] Stop: 02/11/25 08:59 Last Admin: 01/26/25 06:57 Dose: Not Given Glycopyrrolate (Glycopyrrolate 0.2 Mg/Ml Vial) 0.4 mg IV Q4H PRN PRN Reason: Rattling Secretions or Pulm Congestion Stop: 02/19/25 13:28 Last Admin: 01/25/25 17:50 Dose: 0.4 mg Haloperidol (Haloperidol Oral Soln 2 Mg/Ml) 0.5 mg PO Q4H PRN PRN Reason: Anxiety/Agitation Stop: 02/19/25 13:28 Hydromorphone HCl (Hydromorphone Inj 0.5 Mg/0.5 Ml Syr) 0.5 mg IV Q15M PRN PRN Reason: Pain or Respiratory Distress Stop: 02/03/25 13:15 Last Admin: 01/25/25 14:53 Dose: 0.5 mg Hydromorphone HCl (Hydromorphone Inj 1 Mg/Ml Syringe) 1 mg IV Q30M PRN PRN Reason: Pain, dyspnea Stop: 02/08/25 15:04 Last Admin: 01/25/25 15:36 Dose: 1 mg Hydromorphone HCl (Hydromorphone Bolus From Bag) 0.5 mg IV Q15M PRN PRN Reason: Comfort Care Parameters Stop: 02/08/25 15:26 Last Admin: 01/26/25 03:57 Dose: 0.5 mg Hyoscyamine (Hyoscyamine Sulfate 0.125 Mg Tab) 0.125 mg SL Q4H PRN PRN Reason: Secretions or Pulm Congestion Stop: 02/19/25 13:28 Hydromorphone HCl (Dilaudid) 100 mg in 100 mls @ 1.5 mls/hr IV .[id number] [facility]; Protocol Stop: 02/08/25 15:29 Last Titration: 01/26/25 02:55 Dose: 1.5 mg/hr, 1.5 mls/hr Levetiracetam (Levetiracetam 500 Mg/5 Ml Vial) 250 mg IV Q24H [facility] Stop: 02/24/25 17:29 Last Admin: 01/25/25 18:13 Dose: 250 mg Lidocaine (Lidocaine 5% 1 Patch) 1 patch TD QAM [facility] Stop: 02/11/25 12:44 Last Admin: 01/26/25 06:57 Dose: Not Given Lorazepam (Lorazepam 2 Mg/1 Ml Vial) 2 mg IV Q30M PRN PRN Reason: seizure Stop: 02/24/25 16:44 Last Admin: 01/25/25 17:19 Dose: 2 mg Lorazepam (Lorazepam 2 Mg/1 Ml Vial) 2 mg IV Q2H PRN PRN Reason: Anxiety/Agitation Stop: 02/24/25 17:21 Last Admin: 01/25/25 23:21 Dose: 2 mg Magnesium Hydroxide (Magnesium Hydroxide Susp 30 Ml Udc) 30 ml PO Q6H PRN PRN Reason: constipation Stop: 02/16/25 10:23 Metoprolol Succinate (Metoprolol Succ 25mg Ext Rel Tab) 25 mg PO BID [facility] Stop: 02/10/25 20:59 Last Admin: 01/26/25 06:57 Dose: Not Given Miscellaneous (Remove Lidoderm Patch) 1 each N/A DAILY@2100 [facility] Stop: 02/11/25 20:59 Last Admin: 01/25/25 20:24 Dose: Not Given Ondansetron HCl (Ondansetron Inj 2 Mg/Ml 2 Ml Vial) 4 mg IV Q4H PRN PRN Reason: Nausea &/or Vomiting Stop: 02/19/25 13:28 Pantoprazole Sodium (Pantoprazole 40 Mg Tab) 40 mg PO QAM [facility] Stop: 02/11/25 08:59 Last Admin: 01/26/25 06:57 Dose: Not Given Polyethylene Glycol (Polyethylene (Miralax) 17 Gm Pack) 17 gm PO DAILY PRN PRN Reason: Constipation Stop: 02/13/25 21:05 Last Admin: 01/18/25 08:22 Dose: 17 gm Senna/Docusate Sodium (Docusate Sodium/Senna 50/8.6mg Tab) 1 tab PO QAM PRN PRN Reason: constipation Stop: 02/13/25 21:29 PG Care Time/CCT Total # of Minutes Spent Total Time Spent with Patient: Total time spent is greater than 50% in coordination of care (as documented) at patient's floor/unit and/or counseling patient: Coding Level of Care Code 47958 SUB INP/OBS CARE 3/50MIN Diagnoses Palliative care by specialist Z51.5 Encounter for assessment of decision-making capacity Z00.8 Counseling regarding goals of care Z71.89 Comfort measures only status Z51.5 Need for comfort care
--- NOTE | 2025-01-26 13:50 | Hospitalist Progress Note ---
Date of Service January 26, 2025 Assessment & Plan (1) Syncope: (2) Infarction of kidney: (3) Diarrhea: (4) Myoclonus: (5) Dementia: (6) Primary progressive aphasia: (7) HTN (hypertension): (8) Anxiety: Plan Ms Oropeza is an 84 year old female with PMH significant for dementia, primary progressive aphasia, myoclonus, peripheral artery disease, history of symptomatic PVCs, hypertension, GERD, PMR, osteoporosis, idiopathic peripheral neuropathy, history of Guillain-Homer syndrome, IBS with diarrhea, and anxiety who presented to the ED on 01/11/2025 after having a syncopal episode at home. Patient was found to have pulmonary emboli. Patient's course complicated by acute blood loss anemia iso right gluteal hematoma . Patient transition over to comfort care on 01/20/2025. #Renal infarct #Bilateral Pulmonary Emboli #Right gluteal Hematoma #Acute Blood Loss Anemia Comfort care Patient presented to the hospital with renal infarct, PE. She was found to have drop in her hemoglobin; CT showed gluteal subcutaneous hematoma. Patient was being treated for PE with blood thinners with close monitoring of the hemoglobin. Discussion was done with patient's family regarding goals of care by palliative care. Family reported gradual decline in patient's cognition and functional status over the course of last several months. Patient was switched over to comfort care on January 20, 2025 after discussion with the family. Patient needed escalation of dosing of Dilaudid; currently on Dilaudid drip for comfort. Continue comfort measures. Care coordinated with palliative care. Inpatient hospice to reevaluate again. Please note the above document was generated using voice recognition software. It may contain grammatical, syntax or spelling errors. Any formal questions or concerns about the content, text or information contained within the body of this dictation should be directly addressed to the provider for clarification Admission and Anticipated Discharge Date Admission Date: January 11, 2025 Subjective Seen at bedside. Needed escalation of dosing of Dilaudid drip overnight. Appears comfortable. Review of Systems Review of Systems: All systems reviewed & are unremarkable except as noted in Subjective Physical Exam Physical Exam: Constitutional: comfortable; sleeping. not in distress Respiratory: normal respiratory effort, lungs clear to auscultation, no wheeze, rales, rhonchi. Normal insp/exp effort, no accessory muscle use Cardiovascular: RRR, no murmur, no edema Vessels: no JVD or carotid bruit Chest: normal inspection of chest Abdomen: normal bowel sounds, soft, nontender, no hepatosplenomegaly Musculoskeletal: Right buttock with bruise; slightly tender. Neurologic: PERRL, EOMI, accommodation nl, no face palsy, no dysarthria CN's II- XI intact bilaterally and moves all extremities Results & Data Results & Data Vital Signs (Past 12 Hours) Vital Signs O2 Del Method 01/26/25 08:15 Room Air
--- NOTE | 2025-01-27 13:56 | Palliative Care Progress Note ---
Date of Service January 27, 2025 Assessment & Plan (1) Palliative care by specialist: Plan: Palliative care will continue to follow for ongoing GOC discussions and pt / family support. (2) Encounter for assessment of decision-making capacity: Plan: Patient continues to lack decisional capacity based on the inability to convey understanding of personal PMHx, current medical condition, treatment options nor the risks / benefits/ potential outcomes of accepting/declining those options, and inability to make decisions based on such knowledge. Hospital does not have written documentation of patient wishes concerning her chosen proxy for medical decisions. Per PA [id number], in absence of written documentation of patient wishes, pt's proxy for medical decisions would be her spouse Santos Oropeza. Pt's spouse Santos has previously shared that the pt has an advanced directive from more than ten years ago. He shared that the document names him as primary HCPOA and the two daughters as back up. He could not recall what other wishe might have been documented on form. I requested that Santos bring a copy to hospital to be added to patient's chart. He agreed. I helped them understand that the pt does currently require a MDM proxy/HCPOA and that per PA [id number], in absence of written documentation of patient wishes, pt's proxy for medical decisions would be Santos. Santos is willing to serve as HCPOA, but expressed intent to make any decisions together with the input of their daughters. Pt does currently require a proxy for medical decisions. (3) Counseling regarding goals of care: Plan: 01/27: goals of care clearly established pt now comfort care requiring a dilaudid continuous infusion, pt has been evaluated and denied [facility] hospice by [facility] and [facility] Hospice teams. 01/26: goals of care clearly established pt now comfort care requiring a dilaudid continuous infusion, awaiting evaluation for GIP hospice. 01/25: Met with pt's daughter and spouse at bedside from 10:30 - 11:00. Anticipatory guidance reinforced with family. Discussed changes pt may move through in the dying process including but not limited to sleeping more, disorientation when awake, restlessness, diminished senses/inability to respond to stimulus although ability to be aware of them remains intact longer, and changes in body temperatures, skin changes/mottling/cyanosis, respiratory pattern changes, and oral secretions. Family verbalized understanding. The goal is to assure a peaceful . Discussed that pt appears to be transitioning to active phase of dying and requiring more frequent PRN medications for comfort. Discussed potential evaluation for GIP hospice and encouraged family visitation as time may be short, hours to days. 01/24:She shared that the pt's spouse has been looking at [facility] and SNF options and that he is awaiting a call back from two possibilities. She shared that the pt seems to have gotten more lethargic and has waxing and waning PO intake over weekend. Objectively I believe pt is more pale and lethargic with increased WOB today. Pt has had increasing requirement for PRN palliaitve medications and still has significant WOB and tachypnea. Spoke with pt's spouse Santos later in day. He shared that he will continue working with CM for placement, but remains hopeful that the pt will qualify for GIP. I shared that pt does not currently fit criteria for GIP, but I believe she may be transitioning to more active phase of dying. Santos is in agreement that the pt is deteriorating. Discussed that [place] and CM will continue to attempt placement but in meantime if pt has significant decline she may be reevaluated for GIP. Anticipatory guidance offered. Discussed changes pt may move through in the dying process including but not limited to sleeping more, disorientation when awake, restlessness, diminished senses/inability to respond to stimulus although ability to be aware of them remains intact longer, and changes in body temperatures, skin changes/mottling/cyanosis, respiratory pattern changes, and oral secretions. Family verbalized understanding. The goal is to assure a peaceful . (4) Comfort measures only status: Plan: transitioned to [facility] on 01/20/25, on family request. (5) Need for comfort care: Plan: Comfort plan of care parameters: 1. Patient/Family want hospice added to their care. 2. NO rehab/PT/OT 3. Strictly End of Life care only 4. NO escalation of care: do not increase oxygen, escalate therapies, etc. The focus is on comfort through end of life, assure this is accomplished with aggressive symptom management (i.e. relief of dyspnea, pain, etc.) 5. NO return to hospital 6. NO labs, imaging, surgery 7. Oral intake as desired for comfort and pleasure: NO dietary restriction, Allow permissive aspiration, do not withhold food or drink for concern of aspiration and allow PO for pleasure and comfort. 8. If difficulty urinating/commode/bedpan, ok to place Bermeo catheter for comfort/hygiene/skin protection AND/OR Continue Bermeo catheter for comfort/hygiene/skin protection 9. NO: calorie counts, artificial nutrition, feeding tubes or IV fluids EOL Symptom manamgement: Pain/dyspnea/tachypnea dilaudid 0.5mg IVP PRN [id number] Continue dilaudid drip titrate per protocol - prior to initiation of dilaudid drip pt had 24hr period of extreme distress requiring frequent PRN do sing of dilaudid and ativan IVP, she is not able to take PO medications and continues to require PRN dilaudid/ativan bolus dosing. Nausea/vomitting zofran 4mg IVP q4h PRN Agitation ativan 0.5mg IVP q4h PRN Hyperactive delirium haldol 5mg IVP q6h PRN Secretions - if repositioning not effective robinul 0.4mg IV q4h PRN atropine SL 3 drops Q1h PRN Seizures- Keppra 250 mg IV Q24H DOUGLAS ativan 2mg q30min PRN Nursing care: Discontinue all medications not directed towards comfort. Detether pt from IV tubing, monitor cables, and check vitals once per shift. Please prince nue HFNC and titrate down as able for patient comfort. Use medications above PRN for dyspnea/tachypnea and do not increase oxygen once titrated down. Assess q1h for pain/dyspnea and treat accordingly. Plan as above Admission and Anticipated Discharge Date Admission Date: January 11, 2025 Subjective Assessed pt at bedside, She was transitioned to [facility] on 01/20/25. Pt is unresponsive to verbal and gentle tactile stimuli, did not attempt to awaken in concert with comfort directed care. Respiratory effort decreased with frequent short periods of apnea. She does appear pale/ashen today, with extremities cool to touch. Pt's daughter was at bedside today. Pt has had escalation of dilaudid infusion overnight, respiratory pattern and color changes c/w imminent . Request placed for GIP hospice evaluation. Review of Systems Review of Systems: Unobtainable due to cognitive status Physical Exam Constitutional: well developed, + acute distress, + ill appearing, + thin and comfortable +expressive aphasia per baseline Eyes: PERRL, conjunctivae normal, anicteric sclerae ENMT: external ear and nose normal, oropharynx normal Neck: trachea midline, no thyromegaly Respiratory: + labored breathing, + uses accessory mu scles, + prolonged expiratory phase and + paradoxical thoraco-abdominal movement frequent brief periods of apnea Cardiovascular: Rate/Rhythm: regular rate and regular rhythm Heart Sounds: normal S1 and normal S2 Gastrointestinal (Abdomen): normal bowel sounds, soft, nontender, no hepatosplenomegaly Skin: + turgor decreased and + pallor Neurologic: moves all extremities; + not awake Speech / Cognition: + expressive aphasia Psychiatric: Orientation: alert Results & Data Vital Signs (Past 12 Hours) Vital Signs Temp 36.5 C 01/22/25 20:10 Pulse 100 H 01/24/25 08:54 Resp 18 01/22/25 20:10 BP 114/67 01/24/25 08:54 Pulse Ox 92 01/22/25 20:10 O2 Del Method Room Air 01/26/25 08:15 O2 Flow Rate 2 01/19/25 03:09 Intake & Output 01/26/25 01/27/25 01/27/25 18:59 06:59 18:59 Weight 57.1 kg Laboratory Results No further labs or diagnostics in concert with comfort directed care. Diagnostic Findings No further labs or diagnostics in concert with comfort directed care. Medications Administered Current Inpatient Medications Atropine Sulfate (Atropine Sulfate 1% Op Soln 5 Ml Btl) 4 drops SL Q1H PRN PRN Reason: Secretions or pulm congestion Stop: 02/19/25 13:28 Colestipol HCl (Colestipol Hcl 1 Gm Tab) 1 gm PO BID [facility] Stop: 02/10/25 20:59 Last Admin: 01/27/25 07:57 Dose: Not Given Divalproex Sodium (Divalproex Extended Release 500 Mg Tab) 500 mg PO DAILY DOUGLAS Stop: 02/11/25 08:59 Last Admin: 01/27/25 07:58 Dose: Not Given Glycopyrrolate (Glycopyrrolate 0.2 Mg/Ml Vial) 0.4 mg IV Q4H PRN PRN Reason: Rattling Secretions or Pulm Congestion Stop: 02/19/25 13:28 Last Admin: 01/25/25 17:50 Dose: 0.4 mg Haloperidol (Haloperidol Oral Soln 2 Mg/Ml) 0.5 mg PO Q4H PRN PRN Reason: Anxiety/Agitation Stop: 02/19/25 13:28 Hydromorphone HCl (Hydromorphone Inj 0.5 Mg/0.5 Ml Syr) 0.5 mg IV Q15M PRN PRN Reason: Pain or Respiratory Distress Stop: 02/03/25 13:15 Last Admin: 01/25/25 14:53 Dose: 0.5 mg Hydromorphone HCl (Hydromorphone Inj 1 Mg/Ml Syringe) 1 mg IV Q30M PRN PRN Reason: Pain, dyspnea Stop: 02/08/25 15:04 Last Admin: 01/25/25 15:36 Dose: 1 mg Hydromorphone HCl (Hydromorphone Bolus From Bag) 0.5 mg IV Q15M PRN PRN Reason: Comfort Care Parameters Stop: 02/08/25 15:26 Last Admin: 01/26/25 03:57 Dose: 0.5 mg Hyoscyamine (Hyoscyamine Sulfate 0.125 Mg Tab) 0.125 mg SL Q4H PRN PRN Reason: Secretions or Pulm Congestion Stop: 02/19/25 13:28 Hydromorphone HCl (Dilaudid) 100 mg in 100 mls @ 1.5 mls/hr IV .[id number] DOUGLAS; Protocol Stop: 02/08/25 15:29 Last Titration: 01/26/25 02:55 Dose: 1.5 mg/hr, 1.5 mls/hr Levetiracetam (Levetiracetam 500 Mg/5 Ml Vial) 250 mg IV Q24H DOUGLAS Stop: 02/24/25 17:29 Last Admin: 01/26/25 17:50 Dose: 250 mg Lidocaine (Lidocaine 5% 1 Patch) 1 patch TD QAM DOUGLAS Stop: 02/11/25 12:44 Last Admin: 01/27/25 07:58 Dose: 1 patch Lorazepam (Lorazepam 2 Mg/1 Ml Vial) 2 mg IV Q30M PRN PRN Reason: seizure Stop: 02/24/25 16:44 Last Admin: 01/25/25 17:19 Dose: 2 mg Lorazepam (Lorazepam 2 Mg/1 Ml Vial) 2 mg IV Q2H PRN PRN Reason: Anxiety/Agitation Stop: 02/24/25 17:21 Last Admin: 01/27/25 11:04 Dose: 2 mg Magnesium Hydroxide (Magnesium Hydroxide Susp 30 Ml Udc) 30 ml PO Q6H PRN PRN Reason: constipation Stop: 02/16/25 10:23 Metoprolol Succinate (Metoprolol Succ 25mg Ext Rel Tab) 25 mg PO BID [facility] Stop: 02/10/25 20:59 Last Admin: 01/27/25 07:58 Dose: Not Given Miscellaneous (Remove Lidoderm Patch) 1 each N/A DAILY@2100 [facility] Stop: 02/11/25 20:59 Last Admin: 01/26/25 20:06 Dose: 1 each Ondansetron HCl (Ondansetron Inj 2 Mg/Ml 2 Ml Vial) 4 mg IV Q4H PRN PRN Reason: Nausea &/or Vomiting Stop: 02/19/25 13:28 Pantoprazole Sodium (Pantoprazole 40 Mg Tab) 40 mg PO QAM [facility] Stop: 02/11/25 08:59 Last Admin: 01/27/25 07:58 Dose: Not Given Polyethylene Glycol (Polyethylene (Miralax) 17 Gm Pack) 17 gm PO DAILY PRN PRN Reason: Constipation Stop: 02/13/25 21:05 Last Admin: 01/18/25 08:22 Dose: 17 gm Senna/Docusate Sodium (Docusate Sodium/Senna 50/8.6mg Tab) 1 tab PO QAM PRN PRN Reason: constipation Stop: 02/13/25 21:29 PG Care Time/CCT Total # of Minutes Spent Total Time Spent with Patient: Total time spent is greater than 50% in coordination of care (as documented) at patient's floor/unit and/or counseling patient: [place] [address] SUB INP/OBS CARE 2/35MIN Patient Type Established History Problem Focused Exam Expanded Problem Focused Medical Decision Making Moderate Complexity Diagnoses Palliative care by specialist Z51.5 Encounter for assessment of decision-making capacity Z00.8 Counseling regarding goals of care Z71.89 Comfort measures only status Z51.5 Need for comfort care
--- NOTE | 2025-01-27 15:02 | Hospitalist Progress Note ---
Date of Service January 27, 2025 Assessment & Plan (1) Syncope: (2) Infarction of kidney: (3) Diarrhea: (4) Myoclonus: (5) Dementia: (6) Primary progressive aphasia: (7) HTN (hypertension): (8) Anxiety: Plan Ms Oropeza is an 84 year old female with PMH significant for dementia, primary progressive aphasia, myoclonus, peripheral artery disease, history of symptomatic PVCs, hypertension, GERD, PMR, osteoporosis, idiopathic peripheral neuropathy, history of Guillain-Drifting syndrome, IBS with diarrhea, and anxiety who presented to the ED on 01/11/2025 after having a syncopal episode at home. Patient was found to have pulmonary emboli. Patient's course complicated by acut e blood loss anemia iso right gluteal hematoma . Patient transition over to comfort care on 01/20/2025. #Renal infarct #Bilateral Pulmonary Emboli #Right gluteal Hematoma #Acute Blood Loss Anemia Comfort care Patient presented to the hospital with renal infarct, PE. She was found to have drop in her hemoglobin; CT showed gluteal subcutaneous hematoma. Patient was being treated for PE with blood thinners with close monitoring of the hemoglobin. Discussion was done with patient's family regarding goals of care by palliative care. Family reported gradual decline in patient's cognition and functional status over the course of last several months. Patient was switched over to comfort care on January 20, 2025 after discussion with the family. Patient needed escalation of dosing of Dilaudid; currently on Dilaudid drip for comfort. Continue comfort measures. Care coordinated with palliative care. Inpatient hospice to reevaluate again. Please note the above document was generated using voice recognition software. It may contain grammatical, syntax or spelling errors. Any formal questions or concerns about the content, text or information contained within the body of this dictation should be directly addressed to the provider for clarification Admission and Anticipated Discharge Date Admission Date: January 11, 2025 Subjective Patient comfortably resting; family at bedside Review of Systems Review of Systems: All systems reviewed & are unremarkable except as noted in Subjective Physical Exam Physical Exam: Constitutional: comfortable; sleeping. not in distress Respiratory: normal respiratory effort, lungs clear to auscultation, no wheeze, rales, rhonchi. Normal insp/exp effort, no accessory muscle use Cardiovascular: RRR, no murmur, no edema Vessels: no JVD or carotid bruit Chest: normal inspection of chest Abdomen: normal bowel sounds, soft, nontender, no hepatosplenomegaly Musculoskeletal: Right buttock with bruise; slightly tender. Neurologic: PERRL, EOMI, accommodation nl, no face palsy, no dysarthria CN's II- XI intact bilaterally and moves all extremities
--- NOTE | 2025-01-28 12:40 | Hospitalist Progress Note ---
Date of Service January 28, 2025 Assessment & Plan (1) Syncope: (2) Infarction of kidney: (3) Diarrhea: (4) Myoclonus: (5) Dementia: (6) Primary progressive aphasia: (7) HTN (hypertension): (8) Anxiety: Plan Ms Oropeza is an 84 year old female with PMH significant for dementia, primary progressive aphasia, myoclonus, peripheral artery disease, history of symptomatic PVCs, hypertension, GERD, PMR, osteoporosis, idiopathic peripheral neuropathy, history of Guillain-Str[place] syndrome, IBS with diarrhea, and anxiety who presented to the ED on 01/11/2025 after having a syncopal episode at home. Patient was found to have pulmonary emboli. Patient's course complicated by acut e blood loss anemia iso right gluteal hematoma . Patient transition over to comfort care on 01/20/2025. #Renal infarct #Bilateral Pulmonary Emboli #Right gluteal Hematoma #Acute Blood Loss Anemia Comfort care Patient presented to the hospital with renal infarct, PE. She was found to have drop in her hemoglobin; CT showed gluteal subcutaneous hematoma. Patient was being treated for PE with blood thinners with close monitoring of the hemoglobin. Discussion was done with patient's family regarding goals of care by palliative care. Family reported gradual decline in patient's cognition and functional status over the course of last several months. Patient was switched over to comfort care on January 20, 2025 after discussion with the family. Patient needed escalation of dosing of Dilaudid; currently on Dilaudid drip for comfort. Continue comfort measures. Please note the above document was generated using voice recognition software. It may contain grammatical, syntax or spelling errors. Any formal questions or concerns about the content, text or information contained within the body of this dictation should be directly addressed to the provider for clarification Admission and Anticipated Discharge Date Admission Date: January 11, 2025 Subjective Patient seen in bedside; she appears comfortable. Her breathing appears sallow. Review of Systems Review of Systems: All systems reviewed & are unremarkable except as noted in Subjective Physical Exam Physical Exam: Constitutional: comfortable; sleeping. not in distress Respiratory: normal respiratory effort, lungs clear to auscultation, no wheeze, rales, rhonchi. Normal insp/exp effort, no accessory muscle use Cardiovascular: RRR, no murmur, no edema Vessels: no JVD or carotid bruit Chest: normal inspection of chest Abdomen: normal bowel sounds, soft, nontender, no hepatosplenomegaly Musculoskeletal: Right buttock with bruise; slightly tender. Neurologic: lethargic
--- NOTE | 2025-01-28 13:57 | Palliative Care Progress Note ---
Date of Service January 28, 2025 Assessment & Plan (1) Palliative care by specialist: Plan: Palliative care will continue to follow for ongoing GOC discussions and pt / family support. (2) Encounter for assessment of decision-making capacity: Plan: Patient continues to lack decisional capacity based on the inability to convey understanding of personal PMHx, current medical condition, treatment options nor the risks / benefits/ potential outcomes of accepting/declining those options, and inability to make decisions based on such knowledge. Hospital does not have written documentation of patient wishes concerning her chosen proxy for medical decisions. Per PA [id number], in absence of written documentation of patient wishes, pt's proxy for medical decisions would be her spouse Santos Oropeza. Pt's spouse Santos has previously shared that the pt has an advanced directive from more than ten years ago. He shared that the document names him as primary HCPOA and the two daughters as back up. He could not recall what other wishe might have been documented on form. I requested that Santos bring a copy to hospital to be added to patient's chart. He agreed. I helped them understand that the pt does currently require a MDM proxy/HCPOA and that per PA [id number], in absence of written documentation of patient wishes, pt's proxy for medical decisions would be Santos. Santos is willing to serve as HCPOA, but expressed intent to make any decisions together with the input of their daughters. Pt does currently require a proxy for medical decisions. (3) Counseling regarding goals of care: Plan: 01/27: goals of care clearly established pt now comfort care requiring a dilaudid continuous infusion, pt has been evaluated and denied [facility] hospice by [facility] and [facility] Hospice teams. 01/26: goals of care clearly established pt now comfort care requiring a dilaudid continuous infusion, awaiting evaluation for GIP hospice. 01/25: Met with pt's daughter and spouse at bedside from 10:30 - 11:00. Anticipatory guidance reinforced with family. Discussed changes pt may move through in the dying process including but not limited to sleeping more, disorientation when awake, restlessness, diminished senses/inability to respond to stimulus although ability to be aware of them remains intact longer, and changes in body temperatures, skin changes/mottling/cyanosis, respiratory pattern changes, and oral secretions. Family verbalized understanding. The goal is to assure a peaceful . Discussed that pt appears to be transitioning to active phase of dying and requiring more frequent PRN medications for comfort. Discussed potential evaluation for GIP hospice and encouraged family visitation as time may be short, hours to days. 01/24:She shared that the pt's spouse has been looking at [facility] and SNF options and that he is awaiting a call back from two possibilities. She shared that the pt seems to have gotten more lethargic and has waxing and waning PO intake over weekend. Objectively I believe pt is more pale and lethargic with increased WOB today. Pt has had increasing requirement for PRN palliaitve medications and still has significant WOB and tachypnea. Spoke with pt's spouse Santos later in day. He shared that he will continue working with CM for placement, but remains hopeful that the pt will qualify for GIP. I shared that pt does not currently fit criteria for GIP, but I believe she may be transitioning to more active phase of dying. Santos is in agreement that the pt is deteriorating. Discussed that [place] and CM will continue to attempt placement but in meantime if pt has significant decline she may be reevaluated for GIP. Anticipatory guidance offered. Discussed changes pt may move through in the dying process including but not limited to sleeping more, disorientation when awake, restlessness, diminished senses/inability to respond to stimulus although ability to be aware of them remains intact longer, and changes in body temperatures, skin changes/mottling/cyanosis, respiratory pattern changes, and oral secretions. Family verbalized understanding. The goal is to assure a peaceful . (4) Comfort measures only status: Plan: transitioned to RAMP MANAGER on 01/20/25, on family request. (5) Need for comfort care: Plan: Comfort plan of care parameters: 1. Patient/Family want hospice added to their care. 2. NO rehab/PT/OT 3. Strictly End of Life care only 4. NO escalation of care: do not increase oxygen, escalate therapies, etc. The focus is on comfort through end of life, assure this is accomplished with aggressive symptom management (i.e. relief of dyspnea, pain, etc.) 5. NO return to hospital 6. NO labs, imaging, surgery 7. Oral intake as desired for comfort and pleasure: NO dietary restriction, Allow permissive aspiration, do not withhold food or drink for concern of aspiration and allow PO for pleasure and comfort. 8. If difficulty urinating/commode/bedpan, ok to place Bermeo catheter for comfort/hygiene/skin protection AND/OR Continue Bermeo catheter for comfort/hygiene/skin protection 9. NO: calorie counts, artificial nutrition, feeding tubes or IV fluids EOL Symptom manamgement: Pain/dyspnea/tachypnea dilaudid 0.5mg IVP PRN [id number] Continue dilaudid drip titrate per protocol - prior to initiation of dilaudid drip pt had 24hr period of extreme distress requiring frequent PRN do sing of dilaudid and ativan IVP, she is not able to take PO medications and continues to require PRN dilaudid/ativan bolus dosing. Nausea/vomitting zofran 4mg IVP q4h PRN Agitation ativan 0.5mg IVP q4h PRN Hyperactive delirium haldol 5mg IVP q6h PRN Secretions - if repositioning not effective robinul 0.4mg IV q4h PRN atropine SL 3 drops Q1h PRN Seizures- Keppra 250 mg IV Q24H DOUGLAS ativan 2mg q30min PRN Nursing care: Discontinue all medications not directed towards comfort. Detether pt from IV tubing, monitor cables, and check vitals once per shift. Please prince nue HFNC and titrate down as able for patient comfort. Use medications above PRN for dyspnea/tachypnea and do not increase oxygen once titrated down. Assess q1h for pain/dyspnea and treat accordingly. Plan as above Admission and Anticipated Discharge Date Admission Date: January 11, 2025 Subjective Assessed pt at bedside, She was transitioned to RAMP MANAGER on 01/20/25. Pt is unresponsive to verbal and gentle tactile stimuli, did not attempt to awaken in concert with comfort directed care. Respiratory effort increased with tachypnea and tachycardia. She does appear pale/ashen today, with extremities cool to touch. Pt's spouse was at bedside today. Pt remains dilaudid infusion overnight, respiratory pattern and color changes c/w imminent . Review of Systems 2 Review of Systems: Unobtainable due to cognitive status Physical Exam Constitutional: well developed, + acute distress, + ill appearing, + thin and comfortable +expressive aphasia per baseline Eyes: PERRL, conjunctivae normal, anicteric sclerae ENMT: external ear and nose normal, oropharynx normal Neck: trachea midline, no thyromegaly Respiratory: + labored breathing, + uses accessory mu scles, + prolonged expiratory phase and + paradoxical thoraco-abdominal movement frequent brief periods of apnea Cardiovascular: Rate/Rhythm: regular rate and regular rhythm Heart Sounds: normal S1 and normal S2 Gastrointestinal (Abdomen): normal bowel sounds, soft, nontender, no hepatosplenomegaly Skin: + turgor decreased and + pallor Neurologic: + not awake Speech / Cognition: + exp ressive aphasia Results & Data Vital Signs (Past 12 Hours) Vital Signs Temp 36.5 C 01/22/25 20:10 Pulse 100 H 01/24/25 08:54 Resp 18 01/22/25 20:10 BP 114/67 01/24/25 08:54 Pulse Ox 92 01/22/25 20:10 O2 Del Method Room Air 01/27/25 19:15 O2 Flow Rate 2 01/19/25 03:09 Intake & Output 01/27/25 01/28/25 01/28/25 18:59 06:59 18:59 Intake Total 61.025 / 61.025 18.788 / 18.788 Output Total 300 / 300 Balance -238.975 / -238.975 18.788 / 18.788 Intake: IV 61.025 / 61.025 18.788 / 18.788 HYDROmorphone 100 mg In 100 ml 61.025 / 61.025 18.788 / 18.788 @ 1.5 MG/HR 1.5 mls/hr IV . [id number] [facility] Rx#:[id number] Output: Urine Amount (Catheter) 300 / 300 Bermeo/Indwelling 300 / 300 Laboratory Results No further labs or diagnostics in concert with comfort directed care. Diagnostic Findings No further labs or diagnostics in concert with comfort directed care. Medications Administered Current Inpatient Medications Atropine Sulfate (Atropine Sulfate 1% Op Soln 5 Ml Btl) 4 drops SL Q1H PRN PRN Reason: Secretions or pulm congestion Stop: 02/19/25 13:28 Colestipol HCl (Colestipol Hcl 1 Gm Tab) 1 gm PO BID [facility] Stop: 02/10/25 20:59 Last Admin: 01/28/25 08:27 Dose: Not Given Divalproex Sodium (Divalproex Extended Release 500 Mg Tab) 500 mg PO DAILY DOUGLAS Stop: 02/11/25 08:59 Last Admin: 01/28/25 08:27 Dose: Not Given Glycopyrrolate (Glycopyrrolate 0.2 Mg/Ml Vial) 0.4 mg IV Q4H PRN PRN Reason: Rattling Secretions or Pulm Congestion Stop: 02/19/25 13:28 Last Admin: 01/27/25 19:58 Dose: 0.4 mg Haloperidol (Haloperidol Oral Soln 2 Mg/Ml) 0.5 mg PO Q4H PRN PRN Reason: Anxiety/Agitation Stop: 02/19/25 13:28 Hydromorphone HCl (Hydromorphone Inj 0.5 Mg/0.5 Ml Syr) 0.5 mg IV Q15M PRN PRN Reason: Pain or Respiratory Distress Stop: 02/03/25 13:15 Last Admin: 01/28/25 12:17 Dose: 0.5 mg Hydromorphone HCl (Hydromorphone Inj 1 Mg/Ml Syringe) 1 mg IV Q30M PRN PRN Reason: Pain, dyspnea Stop: 02/08/25 15:04 Last Admin: 01/25/25 15:36 Dose: 1 mg Hydromorphone HCl (Hydromorphone Bolus From Bag) 0.5 mg IV Q15M PRN PRN Reason: Comfort Care Parameters Stop: 02/08/25 15:26 Last Admin: 01/28/25 12:52 Dose: 0.5 mg Hyoscyamine (Hyoscyamine Sulfate 0.125 Mg Tab) 0.125 mg SL Q4H PRN PRN Reason: Secretions or Pulm Congestion Stop: 02/19/25 13:28 Hydromorphone HCl (Dilaudid) 100 mg in 100 mls @ 1.5 mls/hr IV .[id number] DOUGLAS; Protocol Stop: 02/08/25 15:29 Last Admin: 01/28/25 08:24 Dose: 1.5 mg/hr, 1.5 mls/hr Levetiracetam (Levetiracetam 500 Mg/5 Ml Vial) 250 mg IV Q24H DOUGLAS Stop: 02/24/25 17:29 Last Admin: 01/27/25 18:05 Dose: 250 mg Lidocaine (Lidocaine 5% 1 Patch) 1 patch TD QAM [facility] Stop: 02/11/25 12:44 Last Admin: 01/28/25 08:27 Dose: 1 patch Lorazepam (Lorazepam 2 Mg/1 Ml Vial) 2 mg IV Q30M PRN PRN Reason: seizure Stop: 02/24/25 16:44 Last Admin: 01/25/25 17:19 Dose: 2 mg Lorazepam (Lorazepam 2 Mg/1 Ml Vial) 2 mg IV Q2H PRN PRN Reason: Anxiety/Agitation Stop: 02/24/25 17:21 Last Admin: 01/28/25 11:50 Dose: 2 mg Magnesium Hydroxide (Magnesium Hydroxide Susp 30 Ml Udc) 30 ml PO Q6H PRN PRN Reason: constipation Stop: 02/16/25 10:23 Metoprolol Succinate (Metoprolol Succ 25mg Ext Rel Tab) 25 mg PO BID [facility] Stop: 02/10/25 20:59 Last Admin: 01/28/25 08:27 Dose: Not Given Miscellaneous (Remove Lidoderm Patch) 1 each N/A DAILY@2100 [facility] Stop: 02/11/25 20:59 Last Admin: 01/27/25 19:38 Dose: 1 each Ondansetron HCl (Ondansetron Inj 2 Mg/Ml 2 Ml Vial) 4 mg IV Q4H PRN PRN Reason: Nausea &/or Vomiting Stop: 02/19/25 13:28 Pantoprazole Sodium (Pantoprazole 40 Mg Tab) 40 mg PO QAM [facility] Stop: 02/11/25 08:59 Last Admin: 01/28/25 08:27 Dose: Not Given Polyethylene Glycol (Polyethylene (Miralax) 17 Gm Pack) 17 gm PO DAILY PRN PRN Reason: Constipation Stop: 02/13/25 21:05 Last Admin: 01/18/25 08:22 Dose: 17 gm Senna/Docusate Sodium (Docusate Sodium/Senna 50/8.6mg Tab) 1 tab PO QAM PRN PRN Reason: constipation Stop: 02/13/25 21:29 PG Care Time/CCT Total # of Minutes Spent Total Time Spent with Patient: Total time spent is greater than 50% in coordination of care (as documented) at patient's floor/unit and/or counseling patient: Coding [place] [address] SUB INP/OBS CARE 2/35MIN Patient Type Established History Expanded Problem Focused Exam Expanded Problem Focused Medical Decision Making Moderate Complexity Diagnoses Palliative care by specialist Z51.5 Encounter for assessment of decision-making capacity Z00.8 Counseling regarding goals of care Z71.89 Comfort measures only status Z51.5 Need for comfort care
--- NOTE | 2025-01-29 10:38 | Discharge Summary ---
Date of Service January 29, 2025 Admission HPI Per Admitting Provider 84 year old female with PMH significant for dementia, primary progressive aphasia, peripheral artery disease, history of symptomatic PVCs, hypertension, GERD, PMR, osteoporosis, idiopathic peripheral neuropathy, history of Guillain- Farson syndrome, IBS with diarrhea, and anxiety who presented to the ED on 01/11/2025 after having a syncopal episode at home. Patient has expressive aphasia and is unable to provide history so history was provided by her . He reports that patient has had ongoing diarrhea for years that has acutely worsened in the last few weeks. Patient was brought to the ED three days ago for x3 episodes of diarrhea as her was concerned about dehydration. She was given fluids and discharged home. Today, patient had two more episodes of diarrhea and then reported that she felt nauseous. Her helped her to the kitchen sink and then went to the next room. He states he heard the patient falling and witnessed her on her way down to the ground. She bumped into the stove and cabinets and the is not sure if she hit her head or not. He notes that he saw her maintain consciousness, however, he did not see the initial start to her falling as he was in the next room. He notes that she has been complaining of chills recently but she denies any fevers, cough, cold symptoms, chest pain, SOB, abdominal pain, vomiting, calf tenderness. She notes weakness. Her denies any recent changes to medications. She took her medications this morning. Admission Exam Per Admitting Provider General/Psych: WD/WN, sitting up in bed, NAD, expressive aphasia, euthymic affect Head: normocephalic, atraumatic Eyes: normal inspection, PERRL, conjunctivae pink, anicteric sclerae ENT: external ear and nose normal, oropharynx normal Neck: normal visual inspection, trachea midline, no thyromegaly Respiratory: normal respiratory effort, lungs clear to auscultation, no wheeze/rales/rhonchi, no accessory muscle use Cardiovascular: regular rate and rhythm, no murmur/rub/gallop, no JVD Extremities: no cyanosis or clubbing, normal peripheral pulses, no BLE edema Abdomen/GI: normal bowel sounds, soft, nontender, no hepatosplenomegaly Neurologic/MSK: A+Ox3, motor strength 5/5, moves all extremities Skin: no rashes, normal color, warm and dry Principal Diagnosis #Renal infarct #Bilateral Pulmonary Emboli #Right gluteal Hematoma #Acute Blood Loss Anemia Comfort care Discharge Exam Patient Discharge Data Allergies Allergy/AdvReac Type Severity Reaction Status Date / Time amoxicillin Allergy Unknown HIVES, RASH Verified 12/07/24 13:39 Influenza Virus Vaccines Allergy Unknown cannot Verified 12/07/24 13:39 have d/t hx of guillian barre Consultations 01/11/25 13:58 ED Decision to Admit Stat 01/13/25 08:59 Consult Palliative Care Routine 01/17/25 09:18 Consult Hematology Routine Ordered Studies 01/11/25 11:03 CT head/brain wo con Stat 01/11/25 12:08 CT Abd and Pelvis [CT abd pelvis IV con only] Stat 01/11/25 15:30 CTA abdomen pelvis w con [CT angio abdomen pelvis w con] Stat 01/11/25 16:49 CTA chest w con [CT angio chest w con] Stat 01/12/25 15:21 US pelvic complete Routine 01/13/25 07:36 CT Abd and Pelvis [CT abd pelvis IV con only] Stat 01/17/25 09:25 CT Abd and Pelvis [CT abd pelvis IV con only] Urgent 01/19/25 08:15 US venous duplex leg [US venous doppler LE BI] Routine Hospital Course (1) Need for comfort care: (2) Comfort measures only status: (3) Hematoma: (4) Pulmonary embolism: Plan Plan Ms Oropeza is an 84 year old female with PMH significant for dementia, primary progressive aphasia, myoclonus, peripheral artery disease, history of symptomatic PVCs, hypertension, GERD, PMR, osteoporosis, idiopathic peripheral neuropathy, history of Guillain-Farson syndrome, IBS with diarrhea, and anxiety who presented to the ED on 01/11/2025 after having a syncopal episode at home. Patient was found to have pulmonary emboli. Patient's course complicated by acute blood loss anemia iso right gluteal hematoma . Patient transition over to comfort care on 01/20/2025. #Renal infarct #Bilateral Pulmonary Emboli #Right gluteal Hematoma #Acute Blood Loss Anemia Comfort care Patient presented to the hospital with renal infarct, PE. She was found to have drop in her hemoglobin; CT showed gluteal subcutaneous hematoma. Patient was being treated for PE with blood thinners with close monitoring of the hemoglobin. Discussion was done with patient's family regarding goals of care by palliative care. Family reported gradual decline in patient's cognition and functional status over the course of last several months. Patient was switched over to comfort care on January 20, 2025 after discussion with the family. Patient on 01/29/2025. Please note the above document was generated using voice recognition software. It may contain grammatical, syntax or spelling errors. Any formal questions or concerns about the content, text or information contained within the body of this dictation should be directly addressed to the provider for clarification Total Time Total Time Spent Total Time Spent (In Minutes): 5 Total Time Includes: Examination of the Patient, Discharge Planning, Medication Reconciliation, Communication With Other Providers and Other Discharge Plan Discharge Items Patient Disposition: Other Date/Time: 01/29/25 05:00
== END 2025-01-29 09:33 | disposition expired | DRG 698 ==
LOC: ED 09:44 → 2N 15:38 → SUATTDRO 15:38 → 2N 19:37 → 3W 01-20 14:38